=== PATIENT | male | born 1960 | race Caucasian/White ===

== ENCOUNTER 2021-04-15 22:59 | Observation (INO) | payer OTHER ==
--- NOTE | 2021-04-15 23:09 | ED ---
Chest Pain HPI - General Chief Complaint: Chest Pain Stated Complaint: Chest pain Time Seen by Provider: 04/15/21 23:08 Source: patient Mode of arrival: wheelchair Limitations: no limitations - History of Present Illness Initial Comments: This patient is a 61-year-old man who presents to be evaluated for pain to the posterior aspect of the thorax. He indicates just inferior to the left scapula. Pain is been presents intermittently to 3 days. Today he was having some aching into the left arm the upper portion. The pain had come on at rest. He did have a period earlier today where he felt sweaty, but he denies any other associated symptoms. Patient denies history of exertional chest pains. MD Complaint: chest pain -: days(s) Onset: during rest Pain Location: other ((Back) Pain Radiation: LUE Severity: moderate Quality: aching Consistency: constant Improves With: nothing Worsens With: nothing Treatments Prior to Arrival: none - Related Data Allergies Allergy/AdvReac Type Severity Reaction Status Date / Time amoxicillin Allergy Nausea Verified 04/15/21 23:06 azithromycin [From Zithromax] Allergy Nausea Verified 04/15/21 23:06 codeine Allergy Nausea Verified 04/15/21 23:06 Penicillins Allergy Nausea Verified 04/15/21 23:06 Review of Systems ROS Statement: Those systems with pertinent positive or pertinent negative responses have been documented in the HPI. ROS Other: All systems not noted in ROS Statement are negative. Constitutional: Denies: fever, chills Respiratory: Denies: cough, dyspnea, wheezes Cardiovascular: Reports: as per HPI, chest pain. Denies: palpitations, dyspnea on exertion, orthopnea, edema, syncope Gastrointestinal: Denies: abdominal pain, nausea, vomiting, diarrhea Genitourinary: Denies: dysuria, hematuria Musculoskeletal: Denies: back pain Skin: Denies: rash Neurological: Denies: headache, weakness, numbness, paresthesias EKG Findings - EKG Results: EKG: interpreted by SHAWN, sinus rhythm (With PVCs), normal axis, normal QRS, normal ST/T EKG shows: tachycardia (Rate 106 bpm) Past Medical History Additional Past Medical History / Comment(s): COVID 02/21 History of Any Multi-Drug Resistant Organisms: None Reported Past Surgical History: No Surgical Hx Reported Past Psychological History: No Psychological Hx Reported Smoking Status: Former smoker Past Alcohol Use History: Rare Past Drug Use History: None Reported General Exam Limitations: no limitations General appearance: alert, in no apparent distress Head exam: Present: atraumatic, normocephalic Eye exam: Present: normal appearance. Absent: scleral icterus, conjunctival injection Neck exam: Present: normal inspection Respiratory exam: Present: normal lung sounds bilaterally. Absent: respiratory distress, wheezes, rales, rhonchi, stridor Cardiovascular Exam: Present: regular rate, normal rhythm, normal heart sounds. Absent: systolic murmur, diastolic murmur, rubs, gallop GI/Abdominal exam: Present: soft. Absent: distended, tenderness, guarding, rebound, rigid, mass Extremities exam: Present: normal inspection, normal capillary refill. Absent: pedal edema, calf tenderness Back exam: Present: normal inspection. Absent: CVA tenderness (R), CVA tenderness (L) Neurological exam: Present: alert Skin exam: Present: warm, dry, intact, normal color. Absent: rash Course Vital Signs 04/15/21 04/16/21 04/16/21 23:03 00:05 01:06 Temperature 98.8 F Pulse Rate 81 105 H 99 Respiratory 18 16 18 Rate Blood Pressure 181/83 153/91 126/85 O2 Sat by Pulse 96 97 98 Oximetry 04/16/21 02:04 Temperature Pulse Rate 92 Respiratory 21 Rate Blood Pressure 148/96 O2 Sat by Pulse 96 Oximetry Disposition Clinical Impression: Chest pain Disposition: ADMITTED IP TO THIS HOSP Condition: Fair Is patient prescribed a controlled substance at d/c from ED?: No
[2021-04-15] MEDS ORDERED: NITROGLYCERIN SL TABS 0.4 MG TAB SUBLINGUAL STA (23:30)
[2021-04-15] MEDS ORDERED: ASPIRIN 81 MG PO STA (23:30)
[2021-04-15 23:39] LABS: Basophils # (A) 0.1 k/uL (0-0.2); Basophils % (A) 1 %; Eosinophils # (A) 0.3 k/uL (0-0.7); Eosinophils % (A) 4 %; HCT 41.9 % (39.0-53.0); HGB 14.5 gm/dL (13.0-17.5); Lymphocytes # (A) 2.4 k/uL (1.0-4.8); Lymphocytes % (A) 37 %; MCH 32.1 pg (25.0-35.0); MCHC 34.7 g/dL (31.0-37.0); MCV 92.6 fL (80.0-100.0); Mean Platelet Volume 8.4; Monocytes # (A) 0.8 k/uL (0-1.0); Monocytes % (A) 12 %; Neutrophils # (A) 2.8 k/uL (1.3-7.7); Neutrophils % (A) 43 %; Platelet Count 227 k/uL (150-450); RBC 4.52 m/uL (4.30-5.90); RDW 12.6 % (11.5-15.5); WBC 6.6 k/uL (3.8-10.6)
[2021-04-15 23:46] LABS: ALT 41 U/L (4-49); AST 30 U/L (17-59); African American GFR (CKD) >90 (>60 ml/min/1.73 sqM); Albumin 4.2 g/dL (3.5-5.0); Alkaline Phosphatase 76 U/L (38-126); Anion Gap 9 mmol/L; Blood Urea Nitrogen 23 mg/dL (9-20); Calcium 9.1 mg/dL (8.4-10.2); Carbon Dioxide 26 mmol/L (22-30); Chloride 105 mmol/L (98-107); Glucose 121 mg/dL (74-99); Magnesium 2.2 mg/dL (1.6-2.3); Non-African American GFR(CKD) 78 (>60 ml/min/1.73 sqM); Potassium 4.3 mmol/L (3.5-5.1); Sodium 140 mmol/L (137-145); Total Bilirubin 0.4 mg/dL (0.2-1.3); Total Protein 7.2 g/dL (6.3-8.2)
[2021-04-15 23:57] LABS: INR 0.9 (<1.2); Partial Thromboplastin Time 23.3 sec (22.0-30.0); Prothrombin Time 9.5 sec (9.0-12.0)
--- NOTE | 2021-04-16 00:01 | XR ---
EXAMINATION TYPE: XR chest 2V DATE OF EXAM: 04/15/2021 COMPARISON: NONE HISTORY: Chest pain TECHNIQUE: FINDINGS: Heart and mediastinum are normal. Lungs are clear. Diaphragm is normal. Bony thorax appears normal. There are chest leads. IMPRESSION: Normal chest.
[2021-04-16] MEDS ORDERED: MORPHINE SULFATE 4 MG/ML SYRINGE IV PRN (01:02)
[2021-04-16] MEDS ORDERED: NITROGLYCERIN SL TABS 0.4 MG TAB SUBLINGUAL PRN ×2 (01:02→09:11)
[2021-04-16] MEDS ORDERED: LORazepam 2 MG/ML INJ IV PRN (01:04)
[2021-04-16] MEDS ORDERED: SODIUM CHLORIDE 0.9% 1,000 ML IV SCH (01:15)
[2021-04-16] MEDS ORDERED: NAPROXEN 250 MG TAB PO STA (02:09)
--- NOTE | 2021-04-16 03:15 | P.HPIM ---
History of Present Illness H&P Date: 04/16/21 The patient is a 61-year-old male with no known PMH who presents to the emergency room with complaints of left upper chest and left arm pain. The patient reports that he contracted COVID-19 3 months ago and feels that he never fully recovered from it. He reports exertional dyspnea and decreased exercise tolerance. He further reports that over the past 3-4 days, he has had a left upper chest pressure-like discomfort with radiation of the left arm. The pain is 3 out of 10 on maximal intensity, somewhat exertional, nonpleuritic, partially alleviated with rest. He denied associated nausea, diaphoresis, vomiting, dizziness, palpitations. In the emergency room an EKG revealed sinus tachycardia with PVCs at 106 bpm. Chest x-ray was unremarkable. Laboratory evaluation revealed a BUN of 23, creatinine 1.05, and troponin of 0.014. Review of systems: Pertinent positives and negatives as discussed in HPI, a complete review of systems was performed and all other systems are negative. Physical examination: General: non toxic, no distress, appears at stated age, normal weight Derm: no unusual rashes/lesions no unusual ecchymoses, warm, dry Head: atraumatic, normocephalic, symmetric Eyes: EOMI, no lid lag, anicteric sclera, pupils equal round reactive to light ENT: Nose and ears atraumatic, no thrush, no pharyngeal erythema Neck: No thyromegaly, no cervical lymphadenopathy, trachea midline, supple Mouth: no lip lesion, mucus membranes moist Cardiovascular: S1S2 reg, no murmur, positive posterior tibial pulse bilateral, no edema, capillary refill less than 2 seconds, no chest wall tenderness on palpation Lungs: CTA bilateral, no rhonchi, no rales , no accessory muscle use Abdominal: soft, nontender to palpation, no guarding, no appreciable organomegaly, normal bowel sounds Ext: no gross muscle atrophy, muscle strength 5 out of 5 in all 4 extremities grossly, no contractures, Neuro: CN II-XI grossly intact, light touch intact all 4 extremities, finger to nose within normal limits, Psych: Alert, oriented, appropriate affect Assessment/plan Chest pain with atypical features -Trend troponin -Cardiac monitoring -Cardiology consult -Continue with aspirin -Echocardiogram -Obtain lipid panel Prerenal azotemia -IV fluids DVT prophylaxis -Heparin subcu The patient is admitted with an anticipated less than 2 midnight stay for evaluation of chest pain CODE STATUS: Full Code Discussed with: Patient Anticipated discharge date: in am Anticipated discharge place: Home Past Medical History Additional Past Medical History / Comment(s): COVID 02/21 History of Any Multi-Drug Resistant Organisms: None Reported Past Surgical History: No Surgical Hx Reported Past Psychological History: No Psychological Hx Reported Smoking Status: Former smoker Past Alcohol Use History: Rare Past Drug Use History: None Reported - Past Family History Father Family Medical History: COPD Medications and Allergies Allergies Allergy/AdvReac Type Severity Reaction Status Date / Time amoxicillin Allergy Nausea Verified 04/15/21 23:06 azithromycin [From Zithromax] Allergy Nausea Verified 04/15/21 23:06 codeine Allergy Nausea Verified 04/15/21 23:06 Penicillins Allergy Nausea Verified 04/15/21 23:06 Physical Exam Vitals: Vital Signs Temp Pulse Resp BP Pulse Ox 04/16/21 02:04 92 21 148/96 96 04/16/21 01:06 99 18 126/85 98 04/16/21 00:05 105 H 16 153/91 97 04/15/21 23:03 98.8 F 81 18 181/83 96 Intake and Output 04/15/21 04/15/21 04/16/21 14:59 22:59 06:59 Other: Weight 86.183 kg Results CBC & Chem 7: 04/15/21 23:26 04/15/21 23:26 Labs: Abnormal Lab Results - Last 24 Hours (Table) 04/15/21 Range/Units 23:26 BUN 23 H (9-20) mg/dL Glucose 121 H (74-99) mg/dL
[2021-04-16] MEDS: HEPARIN SODIUM,PORCINE/PF 5,000 UNIT/0.5 ML SYRINGE SQ SCH ×2 (07:52→15:27)
[2021-04-16] MEDS: METOPROLOL TARTRATE 25 MG TAB PO SCH ×2 (07:52→19:41)
[2021-04-16] MEDS ORDERED: ASPIRIN 325 MG TAB PO STA (09:11)
[2021-04-16] MEDS ORDERED: ALPRAZolam 0.25 MG TAB PO PRN (09:11)
[2021-04-16] MEDS ORDERED: ATORVASTATIN 80 MG TAB PO STA (09:11)
[2021-04-16] MEDS ORDERED: ALPRAZolam 0.5 MG TAB PO PRN (09:11)
[2021-04-16] MEDS: SODIUM CHLORIDE 0.9% 1,000 ML in EMPTY BAG 1 BAG IV SCH ×2 (09:24→19:37)
[2021-04-16] MEDS ORDERED: LIDOCAINE 1% INJ 10MG/ML (20 ML MDV) ONE (10:33)
[2021-04-16] MEDS ORDERED: VERAPAMIL 2.5 MG/ML 2 ML AMP ONE (10:33)
[2021-04-16] MEDS ORDERED: HEPARIN SODIUM 1,000 UN/ML (10ML VL) ONE (10:33)
[2021-04-16] MEDS: fentaNYL (PF) 50 MCG/ML 5 ML AMP IV ONE ×2 (10:41→10:54)
[2021-04-16] MEDS ORDERED: IV FLUID CONTINUATION 1,000 ML IV ONE (10:41)
[2021-04-16] MEDS ORDERED: MIDAZOLAM 2 MG/2 ML VIAL IV ONE (10:41)
[2021-04-16] MEDS: LIDOCAINE 1% INJ 10MG/ML (20 ML MDV) SQ ONE ×2 (10:44→10:55)
[2021-04-16] MEDS ORDERED: IOPAMIDOL-370 125ML BTL INJ ONE (11:06)
[2021-04-16 11:14] LABS: African American GFR (CKD) 109.2 (60.0-200.0); Anion Gap 12.4 mmol/L (10.00-18.00); BUN/Creat Ratio 22.74 Ratio (12.00-20.00); Blood Urea Nitrogen 19.9 mg/dL (9.0-27.0); Calcium 8.6 mg/dL (8.7-10.3); Carbon Dioxide 22.3 mmol/L (20.0-27.5); Non-African American GFR(CKD) 94.2 (60.0-200.0); Potassium 4.1 mmol/L (3.5-5.5)
--- NOTE | 2021-04-16 11:39 | ECHOF ---
Referral Reason:chest pain MEASUREMENTS -------- HEIGHT: 165.1 cm WEIGHT: 86.2 kg BP: 148/96 IVSd: 1.2 cm (0.6 - 1.1) LVIDd: 5.5 cm (3.9 - 5.3) LVPWd: 1.3 cm (0.6 - 1.1) IVSs: 1.4 cm LVIDs: 4.7 cm LVPWs: 1.7 cm Ao Diam: 3.6 cm (2.0 - 3.7) AV Cusp: 2.3 cm (1.5 - 2.6) MV EXCURSION: 20.757 mm (> 18.000) MV EF SLOPE: 133 mm/s (70 - 150) EPSS: 3.0 cm MV E Dorian: 0.58 m/s MV DecT: 200 ms MV A Dorian: 0.62 m/s MV E/A Ratio: 0.95 RAP: 5.00 mmHg RVSP: 17.06 mmHg FINDINGS -------- Sinus rhythm. This was a technically difficult study with suboptimal apical views. The left ventricular size is normal. There is mild concentric left ventricular hypertrophy. There is moderate global hypokinesis of LV . Overall left ventricular systolic function is moderate-blanka rely impaired with, an EF between 30 - 35 %. The right ventricle is normal in size. The left atrial size is normal. The right atrium was not well visualized. 3.0mg of Lumason was utilized for enhancement of images Interatrial and interventricular septum intact. The aortic valve is trileaflet and appears structurally normal. There is no evidence of aortic regu rgitation. There is no evidence of aortic stenosis. Mild mitral regurgitation is present. Mild tricuspid regurgitation present. There is no evidence of pulmonary hypertension. The right v entricular systolic pressure, as measured by Doppler, is 17.06mmHg. There is no pulmonic regurgitation present. The aortic root size is normal. IVC Not well visulized. There is no pericardial effusion. CONCLUSIONS -------- 1. The left ventricular size is normal. 2. There is mild concentric left ventricular hypertrophy. 3. There is moderate global hypokinesis of LV . 4. Overall left ventricular systolic function is moderate-severely impaired with, an EF between 30 - 35 %. 5. Mild mitral regurgitation is present. 6. Mild tricuspid regurgitation present. CONCRETE FLOATER: Stacey Cardenas RDCS
[2021-04-16] MEDS ORDERED: RX INFO: IV CONTRAST WAS GIVEN 1 EACH MISC MISCELLANE PRN (13:07)
[2021-04-16] MEDS: SODIUM CHLORIDE 0.9% 1,000 ML IV SCH (13:50)
--- NOTE | 2021-04-16 15:07 | CONS ---
CONSULTATION CHIEF COMPLAINT: Chest pain. HISTORY OF PRESENT ILLNESS: Henrry is a 61-year-old gentleman with history of anxiety disorder, who presented to the hospital complaining of discomfort involving left shoulder that radiates all the way to his left arm. Symptoms have been going on for the last 4 days. It is moderate to severe intensity, gets worse with activity and relieved with rest. He also has vague precordial chest discomfort. He denies shortness of breath, leg edema, PND or orthopnea. There is no history of focal neurological deficits. There is no prior history of coronary artery disease or congestive heart failure. The patient used to smoke cigarettes, but quit 25 years ago. There is no history of hypertension, diabetes, dyslipidemia. Since being admitted, his symptoms have improved somewhat but he still has vague chest tightness. EKG does not reveal ischemic changes. Two sets of cardiac enzymes have been negative. PAST MEDICAL HISTORY: Significant for anxiety disorder. MEDICATIONS: Medications at home include albuterol, trazodone, Risperdal, and Celexa. ALLERGIES: TO CODEINE, AMOXICILLIN, ZITHROMAX AND PENICILLIN. FAMILY HISTORY: Significant for coronary artery disease on his mother's side. SOCIAL HISTORY: Negative for smoking, EtOH abuse or drug abuse. REVIEW OF SYSTEMS: HEENT is unremarkable. CARDIAC as described above. RESPIRATORY: Negative. GI negative. GENITOURINARY negative. ALLERGY/IMMUNOLOGY negative. SKIN negative. MUSCULOSKELETAL: Significant for arthritis. PSYCHOSOCIAL negative. ENDOCRINE negative. DERM: Negative. CONSTITUTIONAL: Negative. ONCOLOGICAL negative. TUBE DISPATCHER: Negative. Rest of the system review is not relevant. EXAM: He is comfortable at rest. Vital signs are stable. NECK: There is no jugular venous distention. Carotid upstroke is normal. There is no bruit. CHEST exam reveals good air entry bilaterally. HEART exam reveals first and second heart sounds. No gallop. No murmur. No rub. ABDOMEN is soft, nontender. Examination of EXTREMITIES did not reveal any edema. Peripheral pulses are felt. LABS: Labs show that the 3 sets of troponins are negative. Coronavirus test is negative. Creatinine is normal at 1. Hemoglobin is 14.5, platelet count is 227. EKG does not reveal acute ischemic changes. Rare PVCs noted. Chest x-ray is negative. ASSESSMENT: Precordial chest pain, rule out coronary artery disease. PLAN: I will obtain a 2D echo. If he has LV dysfunction or wall motion abnormality, I will proceed with cardiac catheterization to evaluate his coronary anatomy. If the echo is entirely normal, we will consider a stress echo on him and decide on further course of action. The patient is currently on aspirin. He is on IV heparin which is going to be stopped. He is on Zestril, which I am going to continue and Lopressor, which I am going to continue. MMJULIANNA / IJN: [id number] /
[2021-04-16] MEDS ORDERED: ACETAMINOPHEN TAB 325 MG TAB PO PRN (15:38)
[2021-04-16] MEDS ORDERED: ALBUTEROL HFA INHALER INHALATION PRN (15:43)
--- NOTE | 2021-04-16 15:46 | CC ---
CARDIAC CATHETERIZATION REPORT INDICATION: Cardiomyopathy. This is a 61-year-old gentleman who presented to hospital with symptoms of precordial chest pain, primarily left shoulder and arm pain. An EKG did not reveal ischemic changes, but he had PVCs. Cardiac enzymes were negative. An echocardiogram showed severe LV systolic dysfunction with diffuse global hypokinesis. Patient had COVID infection recently but was not admitted, and recovered at home. Given the unexplained new-onset cardiomyopathy, I advised the patient to undergo cardiac catheterization for further evaluation. He has been explained risks, benefits and alternatives, understood and accepted. PROCEDURE NOTE: After obtaining informed consent, left heart catheterization and coronary angiogram were performed via the right femoral artery using standard Ebony catheters. Left ventricular pressures were obtained using the right Ebony catheter. We initially attempted vascular access from the right radial artery using Seldinger technique; however, while we were able to place the micropuncture needle into the radial artery, we were not able to advance the Glidewire. Hence, after several attempts, I decided to proceed with a femoral catheter, which concluded uneventfully. Patient received moderate conscious sedation. Total sedation time was 27 minutes. Manual hemostasis will be obtained as the femoral angiogram shows that the site of entry is very close to the bifurcation. FINDINGS: HEMODYNAMICS: Left ventricular end-diastolic pressure is 24 mm. There is no significant gradient across the aortic valve. LEFT VENTRICULOGRAM: Left ventriculogram was not performed. ANGIOGRAPHIC DATA: Left main coronary artery. Left main coronary artery is a normal-sized vessel and is free of stenosis. It divides into left anterior descending coronary artery and circumflex coronary artery. Circumflex is a large dominant vessel and is free of significant disease. LAD and its branches are free of significant disease. Right coronary artery is a small nondominant vessel and is free of significant disease. CONCLUSIONS: 1. Normal coronary arteries. 2. Nonischemic cardiomyopathy. PLAN: Will treat the patient with beta blockers, KEVIN inhibitors, and if necessary diuretics and reassess the LV function in to 6 months' time. If he continues to have LV systolic dysfunction, he will need a prophylactic AICD. I reviewed these issues at length with the patient. He understands and with the plan. MMODL / IJN: [id number] /
[2021-04-16] MEDS ORDERED: HYDROcodone/APAP 5-325MG 1 EACH TAB PO STA (19:59)
[2021-04-16] MEDS ORDERED: risperiDONE 2 MG TAB PO SCH (21:00)
[2021-04-16] MEDS ORDERED: traZODone HCL 100 MG TAB PO SCH (21:00)
[2021-04-16] MEDS ORDERED: CITALOPRAM HYDROBROMIDE 20 MG TAB PO SCH (21:00)
[2021-04-17] MEDS: HEPARIN SODIUM,PORCINE/PF 5,000 UNIT/0.5 ML SYRINGE SQ SCH ×2 (00:38→08:59)
[2021-04-17] MEDS: SODIUM CHLORIDE 0.9% 1,000 ML IV SCH (01:51)
[2021-04-17] MEDS ORDERED: HEPARIN SODIUM,PORCINE 2,500 UNIT in SODIUM CHLORIDE 0.9% 250 ML IRRIGATION PRN (07:00)
[2021-04-17] MEDS ORDERED: HEPARIN SODIUM,PORCINE 10,000 UNIT in SODIUM CHLORIDE 0.9% 1,000 ML IRRIGATION PRN (07:00)
[2021-04-17 07:32] VITALS: BP 136/87; PULSE 76; RESP 16; TEMP 97.7
[2021-04-17] MEDS ORDERED: ASPIRIN 325 MG TAB PO SCH (09:00)
[2021-04-17] MEDS ORDERED: ASPIRIN 81 MG PO SCH (09:00)
[2021-04-17] MEDS: METOPROLOL TARTRATE 25 MG TAB PO SCH (09:00)
[2021-04-17] MEDS ORDERED: lisinopriL 5 MG TAB PO SCH (09:00)
[2021-04-17] MEDS: SODIUM CHLORIDE 0.9% 1,000 ML in EMPTY BAG 1 BAG IV SCH (09:05)
--- NOTE | 2021-04-17 09:53 | P.PN ---
Subjective Progress Note Date: 04/17/21 HISTORY OF PRESENT ILLNESS: This is a 61-year-old male who presented to the hospital with a chief complaint of chest pain. Echo cardiac gram completed yesterday revealed global hypok inesis of LV with ejection fraction of 3035%. He underwent cardiac catheterization yesterday revealing normal coronary arteries. Patient examined this morning at the bedside. He denies chest pain or pressure. Denies shortness of breath. He continues to report some pain in his arm but states it is improved from yesterday. Patient's vital signs are stable. PHYSICAL EXAM: VITAL SIGNS: Reviewed. GENERAL: Well-developed in no acute distress. NECK: Supple. No JVD or thyromegaly LUNGS: Respirations even and unlabored. Lungs essentially clear to auscultation bilaterally. HEART: Regular rate and rhythm. S1 and S2 heard. EXTREMITIES: Normal range of motion. No clubbing or cyanosis. Peripheral pulses intact. No lower extremity edema. Groin soft with no hematoma noted. ASSESSMENT: Chest pain, status post cardiac catheterization revealing normal coronary arteries Nonischemic cardiomyopathy History of drug use PLAN: Continue current cardiac medications Patient may be discharged home this afternoon in follow-up outpatient with Dr. Clark. He will require a repeat echocardiogram in the future to see if his LV function has improved Nurse practitioner note has been reviewed by physician. Signing provider agrees with the documented findings, assessment, and plan of care. Objective - Vital Signs Vital signs: Vital Signs Temp 97.7 F 04/17/21 07:32 Pulse 76 04/17/21 07:32 Resp 16 04/17/21 07:32 BP 136/87 04/17/21 07:32 Pulse Ox 97 04/17/21 07:32 Intake & Output 04/16/21 04/17/21 04/17/21 18:59 06:59 18:59 Intake Total 460 40 Balance 460 40 Weight 86.183 kg Intake: IV 200 Intake, IV Titration 0 Amount Sodium Chloride 0.9% 1, 0 000 ml @ 100 mls/hr IV . Q10H KADEN Rx#:[id number] Oral 260 40 Other: # Voids 1 2 - Labs CBC & Chem 7: 04/15/21 23:26 04/16/21 05:33 Labs: Abnormal Lab Results - Last 24 Hours (Table) 04/16/21 Range/Units 05:33 BUN/Creatinine Ratio 22.74 H (12.00-20.00) Ratio Calcium 8.6 L (8.7-10.3) mg/dL
[2021-04-17 10:43] LABS: Chol/HDL Ratio 4.02 Ratio; LDL Cholesterol,Calculated 91.7 mg/dL (0.0-131.0)
--- NOTE | 2021-04-17 12:29 | P.DS ---
Providers Date of admission: 04/16/21 01:02 Expected date of discharge: 04/17/21 Attending physician: Esperanza Rodriguez MD Consults: 04/16/21 01:02 Consult Physician Routine Consulting Provider: Jose Luis Del Real Consult Reason/Comments: chest pain Do you want consulting provider notified?: Yes Primary care physician: Gt Lamas MD Hospital Course: 61-year-old male admitted to the hospital with chest pain coated cath was done no evidence of acute coronary syndrome or any lesions that needs stenting patient was found to have nonischemic cardiomyopathy was cleared from cardiology to go home currently patient doesn't have any chest pain no shortness of breath Constitutional: No acute distress, conversant, pleasant Eyes: Anicteric sclerae, moist conjunctiva, no lid-lag PERRLA ENMT: NC/AT Oropharynx clear, no erythema, exudates Neck: Supple, FROM, no masses, or JVD No carotid bruits No thyromegaly Lungs: Clear to auscultation Clear to percussion Normal respiratory effort, no accessory muscle use Cardiovascular: Heart regular in rate and rhythm, No murmurs, gallops, or rubs No peripheral edema Abdominal: Soft Nontender, no guarding, rebound or rigidity Abdomen moving with respiration Normoactive bowel sounds No hepatomegaly, No splenomegaly No palpable mass No abdominal wall hernia noted Skin: Normal temperature, tone, texture, turgor No induration No subcutaneous nodules No rash, lesions No ulcers Extremities: No digital cyanosis No clubbing Pedal pulses intact and symmetrical Radial pulses intact and symmetrical Normal gait and station No calf tenderness Psychiatric:Alert and oriented to person, place and time Appropriate affect Intact judgement Neuro: Muscles Strength 5/5 in all 4 extremities Sensation to light touch grossly present throughout Cranial nerves II-XII grossly intact No focal sensory deficits Discharge plan Chest pain status post cardiac cath no evidence of ischemic coronary artery disease Nonischemic cardiomyopathy continue beta blockers lisinopril and follow-up with cardiology as an outpatient Patient Condition at Discharge: Good Plan - Discharge Summary Discharge Rx Participant: No New Discharge Prescriptions: New Aspirin 81 mg PO DAILY 30 Days #30 tab Metoprolol Tartrate [Lopressor] 25 mg PO BID 30 Days #60 tab lisinopriL [Zestril] 5 mg PO DAILY 30 Days #30 tab Continue Albuterol Inhaler [Ventolin Hfa Inhaler] 2 puff INHALATION RT-QID PRN PRN Reason: Shortness Of Breath traZODone HCL 100 mg PO HS risperiDONE [RisperDAL] 2 mg PO HS Citalopram Hydrobromide [CeleXA] 20 mg PO HS Discharge Medication List Albuterol Inhaler [Ventolin Hfa Inhaler] 2 puff INHALATION RT-QID PRN 04/16/21 [History] Citalopram Hydrobromide [CeleXA] 20 mg PO HS 04/16/21 [History] risperiDONE [RisperDAL] 2 mg PO HS 04/16/21 [History] traZODone HCL 100 mg PO HS 04/16/21 [History] Aspirin 81 mg PO DAILY 30 Days #30 tab 04/17/21 [Rx] Metoprolol Tartrate [Lopressor] 25 mg PO BID 30 Days #60 tab 04/17/21 [Rx] lisinopriL [Zestril] 5 mg PO DAILY 30 Days #30 tab 04/17/21 [Rx] Follow up Appointment(s)/Referral(s): Gt Lamas MD [Primary Care Provider] - 1-2 days William Clark MD [STAFF PHYSICIAN] - 1 Week Patient Instructions/Handouts: Chest Pain (ED)
== END 2021-04-17 13:41 ==
LOC: EC 22:59 → 6NMEDSUR 04-16 01:02
PROVIDERS: ADMIT Internal Medicine; ATTEND Internal Medicine
DX: R07.2 Precordial pain (principal); M79.602 Pain in left arm; M25.512 Pain in left shoulder; R06.09 Other forms of dyspnea; R00.0 Tachycardia, unspecified; I49.3 Ventricular premature depolarization; I42.8 Other cardiomyopathies; I08.1 Rheumatic disorders of both mitral and tricuspid valves; F41.9 Anxiety disorder, unspecified; M19.90 Unspecified osteoarthritis, unspecified site; Z20.822 Contact with and (suspected) exposure to COVID-19; Z86.16 Personal history of COVID-19; Z87.891 Personal history of nicotine dependence; Z88.0 Allergy status to penicillin; Z88.5 Allergy status to narcotic agent; Z88.1 Allergy status to other antibiotic agents; Z82.5 Family history of asthma and other chronic lower respiratory diseases; Z82.49 Family history of ischemic heart disease and other diseases of the circulatory system; Z71.9 Counseling, unspecified
CPT/HCPCS: 96361; 96372; 96374; 96375; 99285; 36415; 93005; 93306; 93458; 85379; 80061; 80053; 80048; 83735; 84484 ×2; 85025; 85610; 85730; 87635; 71046; G0378 ×2; C1769 ×2; C1894 ×2; J2250; J2060; J2270; J2001; J3010; Q9950; Q9967; J1644 ×2

== ENCOUNTER 2021-05-17 02:10 | Emergency (ER) | payer OTHER ==
[2021-05-17 02:16] VITALS: BP 144/102; PULSE 83; RESP 22; TEMP 97.8
[2021-05-17] MEDS ORDERED: ASPIRIN 81 MG PO STA (02:34)
--- NOTE | 2021-05-17 02:43 | ED ---
Chest Pain HPI - General Chief Complaint: Chest Pain Stated Complaint: Chest pain Time Seen by Provider: 05/17/21 02:34 Source: patient, family Mode of arrival: wheelchair - History of Present Illness MD Complaint: chest pain Onset/Timin -: hour(s) Onset: during rest Pain Location: substernal Pain Radiation: neck Severity: moderate Quality: aching Consistency: constant Improves With: nothing Worsens With: nothing Treatments Prior to Arrival: none - Related Data Home Medications Medication Instructions Recorded Confirmed Albuterol Inhaler [Ventolin Hfa 2 puff INHALATION RT-QID PRN 04/16/21 04/16/21 Inhaler] Citalopram Hydrobromide [CeleXA] 20 mg PO HS 04/16/21 04/16/21 risperiDONE [RisperDAL] 2 mg PO HS 04/16/21 04/16/21 traZODone HCL 100 mg PO HS 04/16/21 04/16/21 Previous Rx's Medication Instructions Recorded Aspirin 81 mg PO DAILY 30 Days #30 tab 04/17/21 Metoprolol Tartrate [Lopressor] 25 mg PO BID 30 Days #60 tab 04/17/21 lisinopriL [Zestril] 5 mg PO DAILY 30 Days #30 tab 04/17/21 Allergies Allergy/AdvReac Type Severity Reaction Status Date / Time codeine Allergy Rash/Hives Verified 05/17/21 02:16 amoxicillin AdvReac Nausea Verified 05/17/21 02:16 azithromycin [From Zithromax] AdvReac Nausea Verified 05/17/21 02:16 Penicillins AdvReac Nausea Verified 05/17/21 02:16 Review of Systems ROS Statement: Those systems with pertinent positive or pertinent negative responses have been documented in the HPI. ROS Other: All systems not noted in ROS Statement are negative. Constitutional: Denies: fever, chills Respiratory: Denies: cough, dyspnea Cardiovascular: Reports: chest pain. Denies: palpitations, orthopnea, edema, syncope Gastrointestinal: Denies: abdominal pain, nausea, vomiting Genitourinary: Denies: dysuria, hematuria Musculoskeletal: Denies: back pain Skin: Denies: rash Neurological: Denies: headache, weakness, numbness EKG Findings - EKG Results: EKG: interpreted by SHAWN, sinus rhythm (Rate 77 bpm), normal axis, normal QRS - Blocks, [place], Hypertrophy, ST Abn: Repolarization changes or abnormalities: nonspecific abnormality, ST segment, and/or T wave Past Medical History Past Medical History: Asthma, COPD, Eye Disorder, GERD/Reflux, Pneumonia Additional Past Medical History / Comment(s): COVID 02/21, chronic stomach pain, IBS, fluid too thin bilateral eyes/poor vision, pneumonias. History of Any Multi-Drug Resistant Organisms: None Reported Past Surgical History: Orthopedic Surgery Additional Past Surgical History / Comment(s): L leg injury with surgery/hardware. Past Anesthesia/Blood Transfusion Reactions: No Reported Reaction Past Psychological History: Anxiety, Depression Smoking Status: Former smoker Past Alcohol Use History: None Reported Past Drug Use History: None Reported - Past Family History Father Family Medical History: Cancer Additional Family Medical History / Comment(s): Father of bone cancer Mother Family Medical History: CVA/TIA Additional Family Medical History / Comment(s): Mother is 78yrs old and has had several strokes. General Exam General appearance: alert Head exam: Present: atraumatic, normocephalic Eye exam: Present: normal appearance Neck exam: Present: normal inspection, full ROM Respiratory exam: Present: normal lung sounds bilaterally. Absent: respiratory distress, wheezes, rales, rhonchi, stridor, chest wall tenderness Cardiovascular Exam: Present: regular rate, normal rhythm, normal heart sounds. Absent: systolic murmur, diastolic murmur, rubs, gallop GI/Abdominal exam: Present: soft. Absent: distended, tenderness, guarding, rebound, rigid, mass Extremities exam: Present: normal inspection, normal capillary refill. Absent: pedal edema, calf tenderness Back exam: Present: normal inspection. Absent: CVA tenderness (R), CVA tenderness (L) Neurological exam: Present: alert Skin exam: Present: warm, dry, intact, normal color. Absent: rash Course Vital Signs 05/17/21 02:12 Temperature 97.8 F Pulse Rate 83 Respiratory 22 Rate Blood Pressure 144/102 O2 Sat by Pulse 99 Oximetry Disposition Clinical Impression: Chest pain Disposition: HOME SELF-CARE Condition: Good Instructions (If sedation given, give patient instructions): Chest Pain (ED) Is patient prescribed a controlled substance at d/c from ED?: No Referrals: Gt Lamas MD [Primary Care Provider] - 1-2 days
[2021-05-17 02:45] LABS: Basophils % (A) 1 %; Eosinophils # (A) 0.1 k/uL (0-0.7); Eosinophils % (A) 3 %; HCT 40.9 % (39.0-53.0); HGB 13.6 gm/dL (13.0-17.5); Lymphocytes # (A) 1.5 k/uL (1.0-4.8); Lymphocytes % (A) 32 %; MCH 31.3 pg (25.0-35.0); MCHC 33.4 g/dL (31.0-37.0); MCV 93.7 fL (80.0-100.0); Mean Platelet Volume 7.2; Monocytes # (A) 0.4 k/uL (0-1.0); Monocytes % (A) 9 %; Neutrophils # (A) 2.4 k/uL (1.3-7.7); Neutrophils % (A) 52 %; Platelet Count 211 k/uL (150-450); RBC 4.36 m/uL (4.30-5.90); RDW 13.1 % (11.5-15.5); WBC 4.6 k/uL (3.8-10.6)
[2021-05-17 02:56] LABS: ALT 41 U/L (4-49); AST 33 U/L (17-59); African American GFR (CKD) >90 (>60 ml/min/1.73 sqM); Albumin 4.3 g/dL (3.5-5.0); Alkaline Phosphatase 58 U/L (38-126); Anion Gap 10 mmol/L; Blood Urea Nitrogen 14 mg/dL (9-20); Calcium 8.7 mg/dL (8.4-10.2); Carbon Dioxide 23 mmol/L (22-30); Chloride 106 mmol/L (98-107); Glucose 107 mg/dL (74-99); Magnesium 2.3 mg/dL (1.6-2.3); Non-African American GFR(CKD) >90 (>60 ml/min/1.73 sqM); Sodium 139 mmol/L (137-145); Total Bilirubin 0.5 mg/dL (0.2-1.3); Total Protein 7.5 g/dL (6.3-8.2)
[2021-05-17 03:02] LABS: INR 0.9 (<1.2); Partial Thromboplastin Time 22.6 sec (22.0-30.0)
--- NOTE | 2021-05-17 03:07 | XR ---
EXAMINATION TYPE: XR chest 2V DATE OF EXAM: 05/17/2021 COMPARISON: 04/15/2021 HISTORY: Chest pain TECHNIQUE: 2 views FINDINGS: Heart and mediastinum are normal. Lungs are clear. Diaphragm is normal. Bony thorax is inta ct. IMPRESSION: Normal chest. No change.
== END 2021-05-17 04:30 | disposition home or self-care (01) ==
LOC: EC 02:10
DX: R07.9 Chest pain, unspecified (principal); J45.909 Unspecified asthma, uncomplicated; Z87.891 Personal history of nicotine dependence; Z88.5 Allergy status to narcotic agent; Z88.0 Allergy status to penicillin; Z88.1 Allergy status to other antibiotic agents
CPT/HCPCS: 36415; 71046; 80053; 83735; 84484; 85025; 85379; 85610; 85730; 93005; 99285

== ENCOUNTER 2021-10-21 13:09 | Emergency (ER) | payer OTHER ==
[2021-10-21 13:22] VITALS: RESP 18; TEMP 98.1
[2021-10-21] MEDS ORDERED: LIDOCAINE 5% PATCH TOPICAL SCH (16:15)
--- NOTE | 2021-10-21 16:19 | ED ---
Back Pain HPI - General Chief Complaint: Back Pain/Injury Stated Complaint: Fall, Back Injury Time Seen by Provider: 10/21/21 16:05 Source: patient, RN notes reviewed, old records reviewed Limitations: no limitations - History of Present Illness Initial Comments: This is a pleasant 61-year-old male that presents to the emergency room with low back pain for one week. Patient states that he was standing on a swivel barstool last week and fell backwards hitting his low back on the circular metal foot bar. Patient was able to ambulate after and since the fall. He denies any bowel or bladder incontinence. No hematuria. He has had some abdominal pain states feels like he just did multiple sit-ups. No nausea vomiting diarrhea or fevers. He noticed over the past couple of days some swelling to his mid lower back which is tender to touch. He has been taking Aleve for the pain. Does have a history of a left tib-fib fracture, asthma, COPD and irritable bowel syndrome. MD Complaint: back pain, back injury, fall -: week(s) (1) Place: home Radiation: left leg Severity scale (1-10): 7 Quality: dull Consistency: constant Improves With: immobilization Worsens With: movement Context: fall (Standing on a barstool fell backward) Associated Symptoms: denies other symptoms Treatments Prior to Arrival: NSAIDS - Related Data Home Medications Medication Instructions Recorded Confirmed Albuterol Inhaler [Ventolin Hfa 2 puff INHALATION RT-QID PRN 04/16/21 04/16/21 Inhaler] Citalopram Hydrobromide [CeleXA] 20 mg PO HS 04/16/21 04/16/21 risperiDONE [RisperDAL] 2 mg PO HS 04/16/21 04/16/21 traZODone HCL 100 mg PO HS 04/16/21 04/16/21 Previous Rx's Medication Instructions Recorded Aspirin 81 mg PO DAILY 30 Days #30 tab 04/17/21 Metoprolol Tartrate [Lopressor] 25 mg PO BID 30 Days #60 tab 04/17/21 lisinopriL [Zestril] 5 mg PO DAILY 30 Days #30 tab 04/17/21 Lidocaine 5% Patch [Lidoderm] 1 patch TOPICAL DAILY 10 Days #10 10/21/21 patch Allergies Allergy/AdvReac Type Severity Reaction Status Date / Time codeine Allergy Rash/Hives Verified 05/17/21 02:16 amoxicillin AdvReac Nausea Verified 05/17/21 02:16 azithromycin [From Zithromax] AdvReac Nausea Verified 05/17/21 02:16 Penicillins AdvReac Nausea Verified 05/17/21 02:16 Review of Systems ROS Statement: Those systems with pertinent positive or pertinent negative responses have been documented in the HPI. ROS Other: All systems not noted in ROS Statement are negative. Past Medical History Past Medical History: Asthma, COPD, Eye Disorder, GERD/Reflux, Pneumonia Additional Past Medical History / Comment(s): COVID 02/21, chronic stomach pain, IBS, fluid too thin bilateral eyes/poor vision, pneumonias. History of Any Multi-Drug Resistant Organisms: None Reported Past Surgical History: Orthopedic Surgery Additional Past Surgical History / Comment(s): L leg injury with surgery/hardware. Past Anesthesia/Blood Transfusion Reactions: No Reported Reaction Past Psychological History: Anxiety, Depression Smoking Status: Former smoker Past Alcohol Use History: None Reported Past Drug Use History: None Reported - Past Family History Father Family Medical History: Cancer Additional Family Medical History / Comment(s): Father of bone cancer Mother Family Medical History: CVA/TIA Additional Family Medical History / Comment(s): Mother is 78yrs old and has had several strokes. General Exam Limitations: no limitations General appearance: alert, in no apparent distress Head exam: Present: atraumatic, normocephalic, normal inspection Eye exam: Absent: scleral icterus, conjunctival injection, periorbital swelling ENT exam: Present: mucous membranes moist Neck exam: Present: normal inspection. Absent: tenderness, meningismus Respiratory exam: Present: normal lung sounds bilaterally. Absent: respiratory distress, accessory muscle use Cardiovascular Exam: Present: regular rate GI/Abdominal exam: Present: soft. Absent: tenderness, rigid Extremities exam: Present: normal capillary refill. Absent: pedal edema Back exam: Present: tenderness (Lumbar sacral spine), paraspinal tenderness (LS- spine), other (Hematoma noted LS spine). Absent: CVA tenderness (R), CVA tenderness (L), rash noted Expanded Back exam: Absent: saddle anesthesia Back exam: Positive Straight Leg Raise: Left Neurological exam: Present: alert, oriented X3, normal gait Psychiatric exam: Present: normal affect, normal mood Skin exam: Present: warm, dry. Absent: cyanosis, diaphoretic, petechiae, pallor Course Vital Signs 10/21/21 10/21/21 13:21 16:58 Temperature 98.1 F Pulse Rate 92 82 Respiratory 18 18 Rate Blood Pressure 148/98 149/92 O2 Sat by Pulse 98 99 Oximetry Medical Decision Making - Medical Decision Making X-ray of the lumbar vertebrae have normal alignment. There is anterior mild spurring in the mid lower lumbar spine. No significant disc space narrowing and no compression fracture noted. On physical exam there is a 3 x 4 cm hematoma to the LS spine. Patient states that the initial bruising has resolved. This is likely a hematoma. Patient has been able to ambulate since the incident one week ago. He currently has a steady gait. No bowel or bladder incontinence no other red flag symptoms. Vital signs are stable. Patient was offered pain medication and declined. He was agreeable to Lidoderm patch. Patient was given a prescription for Lidoderm patches, directed to follow-up with his primary care doctor next week for reevaluation. Return to the emergency room with any new or concerning symptoms. Patient is agreeable with this plan of care Case discussed with Dr. Banks Disposition Clinical Impression: Lower back injury Disposition: HOME SELF-CARE Condition: Good Instructions (If sedation given, give patient instructions): Acute Low Back Pain (ED) Additional Instructions: Continued taking Tylenol and or Motrin as needed for pain. Use Lidoderm patches as prescribed for low back pain, 12 hours on and then 12 hours off. Return to the emergency room with any new or concerning symptoms including increased pain, inability to ambulate, bowel or bladder incontinence or fevers. Prescriptions: Lidocaine 5% Patch [Lidoderm] 1 patch TOPICAL DAILY 10 Days #10 patch Is patient prescribed a controlled substance at d/c from ED?: No Referrals: Gt Lamas MD [Primary Care Provider] - 1-2 days Time of Disposition: 16:52
--- NOTE | 2021-10-21 16:40 | XR ---
EXAMINATION TYPE: XR lumbosacral spine min 4V DATE OF EXAM: 10/21/2021 COMPARISON: NONE HISTORY: Back pain TECHNIQUE: 5 views FINDINGS: The lumbar vertebrae have normal alignment. Posterior elements are intact. There is anterio r mild spurring in the mid and lower lumbar spine. No significant disc space narrowing. No compressio n fracture. IMPRESSION: Negative lumbar spine exam. No fracture.
[2021-10-21 16:59] VITALS: BP 149/92; PULSE 82
== END 2021-10-21 17:02 | disposition home or self-care (01) ==
LOC: EC 13:09
DX: S39.92XA Unspecified injury of lower back, initial encounter (principal); J44.9 Chronic obstructive pulmonary disease, unspecified; K21.9 Gastro-esophageal reflux disease without esophagitis; Z79.83 Long term (current) use of bisphosphonates; Z87.891 Personal history of nicotine dependence; Z88.5 Allergy status to narcotic agent; Z88.1 Allergy status to other antibiotic agents; Z88.0 Allergy status to penicillin; W19.XXXA Unspecified fall, initial encounter
CPT/HCPCS: 72110

== ENCOUNTER 2024-05-05 06:43 | Emergency (ER) | payer OTHER ==
[2024-05-05 07:11] LABS: Glucose,Whole Blood 167 mg/dL (70-110)
--- NOTE | 2024-05-05 07:23 | ED ---
General Adult HPI - General Chief complaint: Neuro Symptoms/Deficit Stated complaint: Neuro symptom Time Seen by Provider: 05/05/24 07:00 Source: patient, family, RN notes reviewed Mode of arrival: wheelchair Limitations: no limitations - History of Present Illness Initial comments: Patient is a 64-year-old male present to the emergency department with concerns for recent stroke. Patient on April 22 had cardiac arrest. Patient was admitted for large right sided stroke, non-ST elevation NJ and questionable lung infection. Patient left AGAINST MEDICAL ADVICE yesterday to come back home. Patient states overall he is doing better. Weakness has improved. Patient has had some balance issues however that is new and not currently a problem. Kaden carver states this morning his symptoms were that he was feeling jittery and feeling hot and cold. No chest discomfort at this time. Patient did have CT scans and did have echo. - Related Data Home Medications Medication Instructions Recorded Confirmed Albuterol Inhaler [Ventolin Hfa 2 puff INHALATION RT-QID PRN 04/16/21 04/16/21 Inhaler] Citalopram Hydrobromide [CeleXA] 20 mg PO HS 04/16/21 04/16/21 risperiDONE [RisperDAL] 2 mg PO HS 04/16/21 04/16/21 traZODone HCL 100 mg PO HS 04/16/21 04/16/21 Previous Rx's Medication Instructions Recorded Aspirin 81 mg PO DAILY 30 Days #30 tab 04/17/21 Metoprolol Tartrate [Lopressor] 25 mg PO BID 30 Days #60 tab 04/17/21 lisinopriL [Zestril] 5 mg PO DAILY 30 Days #30 tab 04/17/21 Lidocaine 5% Patch [Lidoderm] 1 patch TOPICAL DAILY 10 Days #10 10/21/21 patch Allergies Allergy/AdvReac Type Severity Reaction Status Date / Time codeine Allergy Rash/Hives Verified 05/17/21 02:16 amoxicillin AdvReac Nausea Verified 05/17/21 02:16 azithromycin [From Zithromax] AdvReac Nausea Verified 05/17/21 02:16 divalproex sodium AdvReac Chest Pain Verified 05/05/24 06:57 [From Depakote] Penicillins AdvReac Nausea Verified 05/17/21 02:16 Review of Systems ROS Statement: Those systems with pertinent positive or pertinent negative responses have been documented in the HPI. ROS Other: All systems not noted in ROS Statement are negative. Constitutional: Denies: fever Eyes: Denies: eye pain ENT: Denies: ear pain Respiratory: Denies: cough Cardiovascular: Denies: chest pain Endocrine: Denies: fatigue Gastrointestinal: Denies: abdominal pain Neurological: Reports: as per HPI. Denies: headache Past Medical History Past Medical History: Asthma, COPD, Eye Disorder, GERD/Reflux, Pneumonia Additional Past Medical History / Comment(s): COVID 02/21, chronic stomach pain, IBS, fluid too thin bilateral eyes/poor vision, pneumonias. History of Any Multi-Drug Resistant Organisms: None Reported Past Surgical History: Orthopedic Surgery Additional Past Surgical History / Comment(s): L leg injury with surgery/anjum dware. Past Anesthesia/Blood Transfusion Reactions: No Reported Reaction Past Psychological History: Anxiety, Depression Smoking Status: Former smoker Past Alcohol Use History: None Reported Past Drug Use History: None Reported - Past Family History Father Family Medical History: Cancer Additional Family Medical History / Comment(s): Father of bone cancer Mother Family Medical History: CVA/TIA Additional Family Medical History / Comment(s): Mother is 78yrs old and has had several strokes. General Exam Limitations: no limitations General appearance: alert, in no apparent distress Head exam: Present: normocephalic Eye exam: Present: normal appearance, PERRL, EOMI ENT exam: Present: normal oropharynx Neck exam: Present: normal inspection Respiratory exam: Present: normal lung sounds bilaterally Cardiovascular Exam: Present: regular rate, normal rhythm GI/Abdominal exam: Present: soft. Absent: tenderness Extremities exam: Present: normal inspection Neurological exam: Present: alert Expanded Neurological exam: Present: protecting the airway, other (Minimal slurred speech) Cranial nerves: EOM's Intact: Normal, Facial Sensation: Normal, Facial Palsy with Forehead Movement: Abnormal Left (Left facial weakness that does not involve the forehead) Sensory exam: Upper Extremity Light Touch: Normal, Lower Extremity Light Touch: Normal Motor strength exam: RUE: 5, LUE: 4, RLE: 5, LLE: 4 Eye Response: (4) open spontaneously Motor Response: (6) obeys commands Verbal Response: (5) oriented Psychiatric exam: Present: normal affect, normal mood Skin exam: Present: normal color Course Vital Signs 05/05/24 05/05/24 05/05/24 06:46 07:40 08:20 Temperature 98.5 F 98.7 F Pulse Rate 85 86 76 Respiratory 18 16 12 Rate Blood Pressure 133/78 115/73 102/65 O2 Sat by Pulse 96 94 L 94 L Oximetry 05/05/24 09:40 Temperature Pulse Rate 70 Respiratory 16 Rate Blood Pressure O2 Sat by Pulse 94 L Oximetry EKG Findings - EKG Results: EKG: interpreted by ERMD, sinus rhythm, normal axis, normal QRS, normal ST/T Medical Decision Making - Medical Decision Making Was pt. sent in by a medical professional or institution (, PA, SUCTION DRUM DRIER OPERATOR, urgent care, hospital, or penitentiary...) When possible be specific @ -No Did you speak to anyone other than the patient for history (EMS, parent, family, police, friend...)? What history was obtained from this source @ -Family's present helps provide significant history including details regarding recent admission and events Did you review nursing and triage notes (agree or disagree)? Why? @ -I reviewed and agree with nursing and triage notes Were old charts reviewed (outside hosp., previous admission, EMS record, old EKG, old radiological studies, urgent care reports/EKG's, penitentiary records)? Report findings @ -Limited chart that was sent was reviewed from [facility] [place] Differential Diagnosis (chest pain, altered mental status, abdominal pain women, abdominal pain men, vaginal bleeding, weakness, fever, dyspnea, syncope, headache, dizziness, GI bleed, back pain, seizure, CVA, palpatations, mental health, musculoskeletal)? @ -Differential Weakness: Hypoglycemia, shock, sepsis, hyponatremia, anemia, infection, NJ, ETOH, adverse medicine reaction, overdose, stroke, this is not meant to be an all-inclusive list. EKG interpreted by me (3pts min.). @ -As above X-rays interpreted by me (1pt min.). @ -Chest x-ray shows no acute process CT interpreted by me (1pt min.). @ -None done U/S interpreted by me (1pt. min.). @ -None done What testing was considered but not performed or refused? (CT, X-rays, U/S, labs)? Why? @ -Considered multiple tests and imaging however patient has had recent admission with this done. What meds were considered but not given or refused? Why? @ -None Did you discuss the management of the patient with other professionals (professionals i.e. , PA, SUCTION DRUM DRIER OPERATOR, lab, RT, psych nurse, social media executive, museum curator, teacher, general service officer, case loader operator)? Give summary @ -Case discussed with Dr. Encarnacion several times Was smoking cessation discussed for >3mins.? @ -No Was critical care preformed (if so, how long)? @ -No Were there social determinants of health that impacted care today? How? (Homelessness, low income, unemployed, alcoholism, drug addiction, transportation, low edu. Level, literacy, decrease access to med. care, prison, rehab)? @ -No Was there de-escalation of care discussed even if they declined (Discuss DNR or withdrawal of care, Hospice)? DNR status @ -No What co-morbidities impacted this encounter? (DM, HTN, Smoking, COPD, CAD, Cancer, CVA, ARF, Chemo, Hep., AIDS, mental health diagnosis, sleep apnea, morbid obesity)? @ -History of recent cardiac arrest and stroke Was patient admitted / discharged? Hospital course, mention meds given and route, prescriptions, significant lab abnormalities, going to OR and other pertinent info. @ -Patient presents as follow-up from recent admission with cardiac arrest, possible NJ and stroke. Patient does not have any new symptoms or complaints. Patient does have left-sided weakness on exam consistent with history. Patient unable to follow-up with residency clinic and Dr. Triana's office is able to see patient today. Patient will be discharged with follow-up with Dr. Triana today. Patient will be given available records that were faxed to us. Undiagnosed new problem with uncertain prognosis? @ -No Drug Therapy requiring intensive monitoring for toxicity (Heparin, Nitro, Insulin, Cardizem)? @ -No Were any procedures done? @ -No Diagnosis/symptom? @ -CVA Acute, or Chronic, or Acute on Chronic? @ -Acute on chronic Uncomplicated (without systemic symptoms) or Complicated (systemic symptoms)? @ -Complicated with recent complicated hospitalization Side effects of treatment? @ -No Exacerbation, Progression, or Severe Exacerbation? @ -No Poses a threat to life or bodily function? How? (Chest pain, USA, NJ, pneumonia, PE, COPD, DKA, ARF, appy, cholecystitis, CVA, Diverticulitis, Homicidal, Suicidal, threat to staff... and all critical care pts) @ -No - Lab Data Result diagrams: 05/05/24 07:29 05/05/24 07:29 Lab Results 05/05/24 05/05/24 05/05/24 Range/Units 07:09 07:29 07:29 WBC 6.3 (3.8-10.6) k/uL RBC 4.50 (4.30-5.90) m/uL Hgb 13.6 (13.0-17.5) gm/dL Hct 41.7 (39.0-53.0) % MCV 92.8 (80.0-100.0) fL MCH 30.2 (25.0-35.0) pg MCHC 32.6 (31.0-37.0) g/dL RDW 12.6 (11.5-15.5) % Plt Count 248 (150-450) k/uL MPV 8.1 Neutrophils % 66 % Lymphocytes % 20 % Monocytes % 9 % Eosinophils % 3 % Basophils % 1 % Neutrophils # 4.2 (1.3-7.7) k/uL Lymphocytes # 1.3 (1.0-4.8) k/uL Monocytes # 0.6 (0-1.0) k/uL Eosinophils # 0.2 (0-0.7) k/uL Basophils # 0.0 (0-0.2) k/uL PT 10.5 (10.0-12.5) sec INR 0.9 (<1.2) APTT 23.4 (22.0-30.0) sec Sodium (137-145) mmol/L Potassium (3.5-5.1) mmol/L Chloride (98-107) mmol/L Carbon Dioxide (22-30) mmol/L Anion Gap mmol/L BUN (9-20) mg/dL Creatinine (0.66-1.25) mg/dL Est GFR (CKD-EPI)AfAm (>60 ml/min/1.73 sqM) Est GFR (CKD-EPI)NonAf (>60 ml/min/1.73 sqM) Glucose (74-99) mg/dL POC Glucose (mg/dL) 167 H (70-110) mg/dL POC Glu Process Mold Technician ID See Murray Lactic Ac Sepsis Rflx Plasma Lactic Acid Иван (0.7-2.0) mmol/L Calcium (8.4-10.2) mg/dL Magnesium (1.6-2.3) mg/dL Total Bilirubin (0.2-1.3) mg/dL AST (17-59) U/L ALT (4-49) U/L Alkaline Phosphatase (38-126) U/L Troponin I (0.000-0.034) ng/mL Total Protein (6.3-8.2) g/dL Albumin (3.5-5.0) g/dL 05/05/24 05/05/24 05/05/24 Range/Units 07:29 07:29 07:29 WBC (3.8-10.6) k/uL RBC (4.30-5.90) m/uL Hgb (13.0-17.5) gm/dL Hct (39.0-53.0) % MCV (80.0-100.0) fL MCH (25.0-35.0) pg MCHC (31.0-37.0) g/dL RDW (11.5-15.5) % Plt Count (150-450) k/uL MPV Neutrophils % % Lymphocytes % % Monocytes % % Eosinophils % % Basophils % % Neutrophils # (1.3-7.7) k/uL Lymphocytes # (1.0-4.8) k/uL Monocytes # (0-1.0) k/uL Eosinophils # (0-0.7) k/uL Basophils # (0-0.2) k/uL PT (10.0-12.5) sec INR (<1.2) APTT (22.0-30.0) sec Sodium 140 (137-145) mmol/L Potassium 4.2 (3.5-5.1) mmol/L Chloride 105 (98-107) mmol/L Carbon Dioxide 27 (22-30) mmol/L Anion Gap 8 mmol/L BUN 21 H (9-20) mg/dL Creatinine 0.97 (0.66-1.25) mg/dL Est GFR (CKD-EPI)AfAm >90 (>60 ml/min/1.73 sqM) Est GFR (CKD-EPI)NonAf 84 (>60 ml/min/1.73 sqM) Glucose 112 H (74-99) mg/dL POC Glucose (mg/dL) (70-110) mg/dL POC Glu Process Mold Technician ID Lactic Ac Sepsis Rflx Plasma Lactic Acid Иван 2.2 H* (0.7-2.0) mmol/L Calcium 9.3 (8.4-10.2) mg/dL Magnesium 1.9 (1.6-2.3) mg/dL Total Bilirubin 0.3 (0.2-1.3) mg/dL AST 49 (17-59) U/L ALT 61 H (4-49) U/L Alkaline Phosphatase 116 (38-126) U/L Troponin I 0.026 (0.000-0.034) ng/mL Total Protein 6.9 (6.3-8.2) g/dL Albumin 4.1 (3.5-5.0) g/dL 05/05/24 Range/Units 07:59 WBC (3.8-10.6) k/uL RBC (4.30-5.90) m/uL Hgb (13.0-17.5) gm/dL Hct (39.0-53.0) % MCV (80.0-100.0) fL MCH (25.0-35.0) pg MCHC (31.0-37.0) g/dL RDW (11.5-15.5) % Plt Count (150-450) k/uL MPV Neutrophils % % Lymphocytes % % Monocytes % % Eosinophils % % Basophils % % Neutrophils # (1.3-7.7) k/uL Lymphocytes # (1.0-4.8) k/uL Monocytes # (0-1.0) k/uL Eosinophils # (0-0.7) k/uL Basophils # (0-0.2) k/uL PT (10.0-12.5) sec INR (<1.2) APTT (22.0-30.0) sec Sodium (137-145) mmol/L Potassium (3.5-5.1) mmol/L Chloride (98-107) mmol/L Carbon Dioxide (22-30) mmol/L Anion Gap mmol/L BUN (9-20) mg/dL Creatinine (0.66-1.25) mg/dL Est GFR (CKD-EPI)AfAm (>60 ml/min/1.73 sqM) Est GFR (CKD-EPI)NonAf (>60 ml/min/1.73 sqM) Glucose (74-99) mg/dL POC Glucose (mg/dL) (70-110) mg/dL POC Glu Process Mold Technician ID Lactic Ac Sepsis Rflx Y Plasma Lactic Acid Иван (0.7-2.0) mmol/L Calcium (8.4-10.2) mg/dL Magnesium (1.6-2.3) mg/dL Total Bilirubin (0.2-1.3) mg/dL AST (17-59) U/L ALT (4-49) U/L Alkaline Phosphatase (38-126) U/L Troponin I (0.000-0.034) ng/mL Total Protein (6.3-8.2) g/dL Albumin (3.5-5.0) g/dL Disposition Clinical Impression: Cerebrovascular accident (CVA) Disposition: HOME SELF-CARE Condition: Stable Instructions (If sedation given, give patient instructions): Self Care Measures After a Stroke (ED), Stroke (DC) Additional Instructions: Please do follow-up with Dr. Barrera's office today as informed. Please return for chest pain, weakness, confusion, difficulty walking, worsening or changing symptoms or any other concerns. Is patient prescribed a controlled substance at d/c from ED?: No Referrals: Lzi Wilson, PAC [REFERRING] - 05/05/24 5:45 pm (New Patient appointment, please bring insurance cards and ID cards. There will be new patient paperwork to complete. Call [facility] to change the PCP and obtain a reference number to bring to appointment. ) Forms: Who Do I Call?, Community Resources, Help In The Home, Personal Manager Mining Time of Disposition: 10:11
[2024-05-05 07:45] LABS: Basophils % (A) 1 %; Eosinophils # (A) 0.2 k/uL (0-0.7); Eosinophils % (A) 3 %; HCT 41.7 % (39.0-53.0); HGB 13.6 gm/dL (13.0-17.5); Lymphocytes # (A) 1.3 k/uL (1.0-4.8); Lymphocytes % (A) 20 %; MCH 30.2 pg (25.0-35.0); MCHC 32.6 g/dL (31.0-37.0); MCV 92.8 fL (80.0-100.0); Mean Platelet Volume 8.1; Monocytes # (A) 0.6 k/uL (0-1.0); Monocytes % (A) 9 %; Neutrophils # (A) 4.2 k/uL (1.3-7.7); Neutrophils % (A) 66 %; Platelet Count 248 k/uL (150-450); RDW 12.6 % (11.5-15.5); WBC 6.3 k/uL (3.8-10.6)
[2024-05-05 07:59] LABS: ALT 61 U/L (4-49); AST 49 U/L (17-59); African American GFR (CKD) >90 (>60 ml/min/1.73 sqM); Albumin 4.1 g/dL (3.5-5.0); Alkaline Phosphatase 116 U/L (38-126); Anion Gap 8 mmol/L; Blood Urea Nitrogen 21 mg/dL (9-20); Calcium 9.3 mg/dL (8.4-10.2); Carbon Dioxide 27 mmol/L (22-30); Chloride 105 mmol/L (98-107); Glucose 112 mg/dL (74-99); Magnesium 1.9 mg/dL (1.6-2.3); Non-African American GFR(CKD) 84 (>60 ml/min/1.73 sqM); Potassium 4.2 mmol/L (3.5-5.1); Sodium 140 mmol/L (137-145); Total Bilirubin 0.3 mg/dL (0.2-1.3); Total Protein 6.9 g/dL (6.3-8.2)
[2024-05-05 08:00] LABS: INR 0.9 (<1.2); Partial Thromboplastin Time 23.4 sec (22.0-30.0); Prothrombin Time 10.5 sec (10.0-12.5)
--- NOTE | 2024-05-05 08:20 | XR ---
EXAMINATION TYPE: XR chest 2V DATE OF EXAM: 05/05/2024 8:03 AM COMPARISON: 05/17/2021 CLINICAL INDICATION: Male, 64 years old with history of Weakness, history of stroke last week , TECHNIQUE: PA and lateral views FINDINGS: The cardiomediastinal silhouette, aorta, and pulmonary vasculature are within normal limits. Lungs an d pleural spaces are clear. IMPRESSION: No acute cardiopulmonary process. [facility], , 05/05/2024 8:17 AM
[2024-05-05 10:10] VITALS: BP 110/80; PULSE 82; RESP 18; TEMP 98
== END 2024-05-05 10:39 | disposition home or self-care (01) ==
LOC: EC 06:43
DX: I63.9 Cerebral infarction, unspecified (principal); Z88.0 Allergy status to penicillin; Z88.1 Allergy status to other antibiotic agents; Z88.8 Allergy status to other drugs, medicaments and biological substances; Z87.891 Personal history of nicotine dependence; Z86.73 Personal history of transient ischemic attack (TIA), and cerebral infarction without residual deficits; Z86.16 Personal history of COVID-19
CPT/HCPCS: 36415; 71046; 80053; 83605; 83735; 84484; 85025; 85610; 85730; 93005; 99284

== ENCOUNTER 2024-05-05 18:29 | Observation (INO) | payer OTHER ==
--- NOTE | 2024-05-05 19:04 | ED ---
General Adult HPI - General Chief complaint: Weakness Stated complaint: weakness Time Seen by Provider: 05/05/24 18:45 Source: patient, RN notes reviewed, old records reviewed Mode of arrival: EMS Limitations: no limitations - History of Present Illness Initial comments: Is a 64-year-old male who was recently admitted to [facility] for having a heart attack and stroke. Patient left AMA and came here was seen earlier here today according to the doctor at that time the patient had no new symptoms and family was aware of this and patient was discharged home to follow-up with a primary medical care doctor today when he got to the primary medical care doctor's office the family told the primary medical care doctor that the patient was more altered than normal and not acting himself so they sent the patient back to us however when I spoke to the patient now is alert and oriented x 4 he denies any new or worsening symptoms. Family is not yet in the room. Patient denies any chest pain difficulty breathing. Patient has abdominal pain patient has headache. Patient denies of nausea vomiting or diarrhea. Patient denies any shortness of breath. - Related Data Home Medications Medication Instructions Recorded Confirmed No Known Home Medications 05/05/24 05/05/24 Allergies Allergy/AdvReac Type Severity Reaction Status Date / Time codeine Allergy Rash/Hives Verified 05/05/24 19:56 amoxicillin AdvReac Nausea Verified 05/05/24 19:56 azithromycin [From Zithromax] AdvReac Nausea Verified 05/05/24 19:56 divalproex sodium AdvReac Chest Pain Verified 05/05/24 19:56 [From Depakote] Penicillins AdvReac Nausea Verified 05/05/24 19:56 Review of Systems ROS Statement: Those systems with pertinent positive or pertinent negative responses have been documented in the HPI. ROS Other: All systems not noted in ROS Statement are negative. Past Medical History Past Medical History: Asthma, COPD, CVA/TIA, Eye Disorder, GERD/Reflux, Pneumonia Additional Past Medical History / Comment(s): COVID 02/21, chronic stomach pain, IBS, fluid too thin bilateral eyes/poor vision, pneumonias. History of Any Multi-Drug Resistant Organisms: None Reported Past Surgical History: Orthopedic Surgery Additional Past Surgical History / Comment(s): L leg injury with surgery/hardware. Past Anesthesia/Blood Transfusion Reactions: No Reported Reaction Past Psychological History: Anxiety, Depression Smoking Status: Former smoker Past Alcohol Use History: None Reported Past Drug Use History: None Reported - Past Family History Father Family Medical History: Cancer Additional Family Medical History / Comment(s): Father of bone cancer Mother Family Medical History: CVA/TIA Additional Family Medical History / Comment(s): Mother is 78yrs old and has had several strokes. General Exam - General Exam Comments Initial Comments: GENERAL: Patient is well-developed and well-nourished. Patient is nontoxic and well- hydrated and is in no acute distress. ENT: Neck is soft and supple. No significant lymphadenopathy is noted. Oropharynx is clear. Moist mucous membranes. Neck has full range of motion without eliciting any pain. EYES: The sclera were anicteric and conjunctiva were pink and moist. Extraocular movements were intact and pupils were equal round and reactive to light. Eyelids were unremarkable. PULMONARY: Unlabored respirations. Good breath sounds bilaterally. No audible rales rhonchi or wheezing was noted. CARDIOVASCULAR: There is a regular rate and rhythm without any murmurs gallops or rubs. Femoral pulses are equal bilaterally ABDOMEN: Soft and nontender with normal bowel sounds. No palpable organomegaly was noted. There is no palpable pulsatile mass. SKIN: Skin is clear with no lesions or rashes and otherwise unremarkable. NEUROLOGIC: Patient is alert and oriented x3. There is some slight facial droop on the left. Patient has weakness in the left hand with stone rigger slight drift in the left arm and cerebellar testing nose to finger on the left is off. Patient's lower extremities were equal bilaterally MUSCULOSKELETAL: Normal extremities with adequate strength and full range of motion. No lower extremity swelling or edema. No calf tenderness. LYMPHATICS: No significant lymphadenopathy is noted PSYCHIATRIC: Normal psychiatric evaluation. Limitations: no limitations Course Vital Signs 05/05/24 05/05/24 18:31 19:44 Temperature 98.4 F Pulse Rate 90 84 Respiratory 16 18 Rate Blood Pressure 116/76 107/67 O2 Sat by Pulse 96 97 Oximetry Medical Decision Making - Medical Decision Making EKG is interpreted by myself but EKG is a sinus rhythm at 86 bpm NE 148 QRS 103 QT interval 346 QTc is 389. Patient's EKG shows no ST segment ovation or depression. Was pt. sent in by a medical professional or institution (, PA, JUNK DEALER, urgent care, hospital, or custodial...) When possible be specific @ -No Did you speak to anyone other than the patient for history (EMS, parent, family, police, friend...)? What history was obtained from this source @ -No Did you review nursing and triage notes (agree or disagree)? Why? @ -I reviewed and agree with nursing and triage notes Were old charts reviewed (outside hosp., previous admission, EMS record, old EKG, old radiological studies, urgent care reports/EKG's, custodial records)? Report findings @ -No old charts were reviewed Differential Diagnosis? @ -Differential CVA Ischemic stroke, hemorrhagic stroke, brain tumor, atypical migraine, Wernicke's encephalopathy, seizure, multiple sclerosis, meningitis, encephalitis, hypoglycemia, Guillain-Ryder, electrolytes disturbance, myasthenia gravis.... This is not meant to be an all-inclusive list EKG interpreted by me (3pts min.). @ -As above X-rays interpreted by me (1pt min.). @ -None done CT interpreted by me (1pt min.). @ -CT of the brain shows no acute abnormality CT of the C-spine shows no acute abnormality U/S interpreted by me (1pt. min.). @ -None done What testing was considered but not performed or refused? (CT, X-rays, U/S, labs)? Why? @ -None What meds were considered but not given or refused? Why? @ -None Did you discuss the management of the patient with other professionals (professionals i.e. , PA, JUNK DEALER, lab, RT, psych nurse, social services specialist, director of fundraising, teacher, probation and parole officer, case investigator)? Give summary @ -I spoke with Dr. Rodriguez he agreed to admit the patient I admitted the patient wrote admitting orders Was smoking cessation discussed for >3mins.? @ -No Was critical care preformed (if so, how long)? @ -No Were there social determinants of health that impacted care today? How? (Homelessness, low income, unemployed, alcoholism, drug addiction, transportation, low edu. Level, literacy, decrease access to med. care, [facility], rehab)? @ -No Was there de-escalation of care discussed even if they declined (Discuss DNR or withdrawal of care, Hospice)? DNR status @ -No What co-morbidities impacted this encounter? (DM, HTN, Smoking, COPD, CAD, Cancer, CVA, ARF, Chemo, Hep., AIDS, mental health diagnosis, sleep apnea, morbid obesity)? @ -None Was patient admitted / discharged? Hospital course, mention meds given and route, prescriptions, significant lab abnormalities, going to OR and other pertinent info. @ -Patient had no new symptoms however he was having intermittent episodes of altered mental status according to family. Spoke to Dr. Rodriguez and he agreed to admit the patient Undiagnosed new problem with uncertain prognosis? @ -No Drug Therapy requiring intensive monitoring for toxicity (Heparin, Nitro, Insulin, Cardizem)? @ -No Were any procedures done? @ -No Diagnosis/symptom? @ -CVA Acute, or Chronic, or Acute on Chronic? @ -Acute Uncomplicated (without systemic symptoms) or Complicated (systemic symptoms)? @ -Complicated Side effects of treatment? @ -No Exacerbation, Progression, or Severe Exacerbation? @ -No Poses a threat to life or bodily function? How? (Chest pain, USA, [place], pneumonia, PE, COPD, DKA, ARF, appy, cholecystitis, CVA, Diverticulitis, Homicidal, Suicidal, threat to staff... and all critical care pts) @ -Yes this can lead to further stroke and morbidity mortality Diagnosis/symptom? @ -Altered mental status Acute, or Chronic, or Acute on Chronic? @ -Acute Uncomplicated (without systemic symptoms) or Complicated (systemic symptoms)? @ -Complicated Side effects of treatment? @ -None Exacerbation, Progression, or Severe Exacerbation] @ -No Poses a threat to life or bodily function? @ -No Disposition Clinical Impression: Cerebrovascular accident (CVA), Altered mental status Disposition: ADMITTED IP TO THIS HOSP Referrals: Deny Barrera MD [Primary Care Provider] - 1-2 days Time of Disposition: 21:21
--- NOTE | 2024-05-05 20:17 | CT ---
EXAMINATION TYPE: CT brain cspine wo con DATE OF EXAM: 05/05/2024 7:42 PM COMPARISON: None. CLINICAL INDICATION: Male, 64 years old with history of Neurodeficit; C/O weakness, hx cva 2 weeks ag o. left side weakness with facial droop. Pt also fell off of CT table before exam. No LOC. TECHNIQUE: Brain: Multiple axial CT images of the brain were obtained without IV contrast. Cspine: Axial CT images from the skull base to the inferior aspect of T2 we obtained without intraven ous contrast. Coronal and sagittal reformatted images were also reviewed. . CT DLP: 1595.1 mGycm, Automated exposure control for dose reduction was used. FINDINGS: Brain: Extra-axial spaces: No abnormal extra-axial fluid collections. Ventricular system: Within normal limits Cerebral parenchyma: Evidence of prior right temporal/parietal lobe CVA. No acute intraparenchymal he morrhage or mass effect. The gunn-white junction is well differentiated. Cerebellum: Unremarkable. Mass effect: No evidence of midline shift. Intracranial vasculature: unremarkable Soft tissues: Normal. Calvarium/osseous structures: No depressed skull fracture. Paranasal sinuses and mastoid air cells: Mild scattered mucosal thickening and or secretions. Visualized orbits: Orbital contents are intact. Cervical spine: Fracture: None. Osseous structures: Multilevel degenerative disc disease changes with endplate spurring and disc oste ophyte complex's. Vertebral alignment: Within normal limits. Spinal canal/Neural Foramina: No evidence of significant spinal canal narrowing. No evidence for sign ificant neural foraminal stenosis. Neck soft tissues: Prevertebral soft tissues are within normal limits. Other: The airway is patent. The lung apices are clear. IMPRESSION: 1. Evidence of prior right temporal/parietal lobe CVA. Correlate with prior imaging at outside insti tution. 2. No evidence of cervical spine fracture. 3. Mild multilevel degenerative disc disease. [facility], , 05/05/2024 8:15 PM
[2024-05-06] MEDS: IBUPROFEN 600 MG TAB PO STA (02:21)
--- NOTE | 2024-05-06 02:35 | P.HPIM ---
History of Present Illness H&P Date: 05/05/24 Patient is a 65-year-old male with a PMH of recent MD and CVA who presents to the emergency room for altered mental status. The patient reports that he primarily works out in [place] where roughly 2 weeks ago he had a sudden onset of left facial droop and left-sided weakness and shortness of breath. The patient was seen at a facility in [facility] where a CT brain revealed a right MCA acute ischemic CVA. The patient was also noted to have elevated troponin. The patient had the documentation from that prior hospitalization which revealed that the patient was confused during that stay and received sedatives and had to have an involuntary 72-hour hold as the patient was insisting on signing out AMA. The patient was subsequently discharged from that facility and had returned home to [place]. He was seen at our emergency department earlier today brought in by his family members for confusion. The patient was noted to be at baseline and subsequently discharged. He was then reportedly seen at his PCPs office where he was noted to not be acting like himself and subsequently sent back to the emergency room. The patient at the time of interview was oriented x 4 and had no active complaints. He did report that his family members have noticed a mild left-sided facial droop but he denied any weakness. He also denies visual disturbances, impaired gait, impaired speech, chest discomfort, shortness of breath, fever, chills, cough, nausea, vomiting, abdominal pain, diarrhea. Unfortunately while the patient was on the CT scan table, he had a fall while trying to turn to the side, striking his face on the ground. He reports minimal facial pain at the time of interview and no other injuries sustained from the fall. Head/cervical spine CT in the emergency room revealed evidence of a prior right temporal/parietal lobe CVA. EKG revealed sinus rhythm at 86 bpm with poor R w ave progression with QTc 389 MS with no other ST/T wave changes noted as reviewed by me. Laboratory evaluation from earlier presentation revealed lactic acid 2.2, troponin 0.026, glucose 112, and BUN 21 with creatinine 0.97. ED documentation reviewed and case discussed with ED provider. Review of systems: Pertinent positives and negatives as discussed in HPI, a complete review of systems was performed and all other systems are negative. Physical examination: Vital signs reviewed General: non toxic, no distress, appears at stated age, normal weight Derm: no unusual rashes/lesions, warm Head: atraumatic, normocephalic, symmetric Eyes: EOMI, no lid lag, anicteric sclera, pupils equal round reactive to light ENT: Nose and ears atraumatic Neck: No cervical lymphadenopathy, trachea midline, supple Mouth: no lip lesion, mucus membranes moist Cardiovascular: S1S2 reg, no murmur, positive dorsalis pedis pulse bilateral, no edema Lungs: CTA bilateral, no rhonchi, no rales, no accessory muscle use Abdominal: soft, nontender to palpation, no guarding Ext: muscle strength 5 out of 5 in all 4 extremities grossly, no gross muscle atrophy, no contractures, Neuro: Mild left-sided facial droop, CN II-XI otherwise grossly intact, no other gross focal neuro deficits Psych: Alert, oriented, appropriate affect Assessment: Altered mental status, now resolved Recent ischemic CVA Recent MD Lactic acidosis, resolved Chronic conditions: COPD, GERD Imaging: Head/cervical spine CT in the emergency room revealed evidence of a prior right temporal/parietal lobe CVA. EKG revealed sinus rhythm at 86 bpm with poor R wave progression with QTc 389 MS with no other ST/T wave changes noted as reviewed by me. Data Review: Laboratory evaluation from earlier presentation revealed lactic acid 2.2, troponin 0.026, glucose 112, and BUN 21 with creatinine 0.97. Plan: Neurology consult Neurochecks Fall precautions PT and speech consults Cardiac monitoring Resume home medications once reconciled Consult Cardiology DVT prophylaxis: Lovenox subcu The patient is admitted with an anticipated greater than 2 midnight stay for evaluation of altered mental status CODE STATUS: Full Code Discussed with: Patient Anticipated discharge place: Home Past Medical History Past Medical History: Asthma, COPD, CVA/TIA, Eye Disorder, GERD/Reflux, Pneumonia Additional Past Medical History / Comment(s): COVID 02/21, chronic stomach pain, IBS, fluid too thin bilateral eyes/poor vision, pneumonias. History of Any Multi-Drug Resistant Organisms: None Reported Past Surgical History: Orthopedic Surgery Additional Past Surgical History / Comment(s): L leg injury with surgery/hardware. Past Anesthesia/Blood Transfusion Reactions: No Reported Reaction Past Psychological History: Anxiety, Depression Smoking Status: Former smoker Past Alcohol Use History: None Reported Past Drug Use History: None Reported - Past Family History Father Family Medical History: Cancer Additional Family Medical History / Comment(s): Father of bone cancer Mother Family Medical History: CVA/TIA Additional Family Medical History / Comment(s): Mother is 78yrs old and has had several strokes. Medications and Allergies Home Medications Medication Instructions Recorded Confirmed Type No Known Home Medications 05/05/24 05/05/24 History Allergies Allergy/AdvReac Type Severity Reaction Status Date / Time codeine Allergy Rash/Hives Verified 05/05/24 19:56 amoxicillin AdvReac Nausea Verified 05/05/24 19:56 azithromycin [From Zithromax] AdvReac Nausea Verified 05/05/24 19:56 divalproex sodium AdvReac Chest Pain Verified 05/05/24 19:56 [From Depakote] Penicillins AdvReac Nausea Verified 05/05/24 19:56 Physical Exam Vitals: Vital Signs Temp Pulse Resp BP Pulse Ox 05/05/24 23:00 66 16 125/84 97 05/05/24 19:44 84 18 107/67 97 05/05/24 18:31 98.4 F 90 16 116/76 96 Intake and Output 05/05/24 05/05/24 05/06/24 14:59 22:59 06:59 Other: Weight 81.647 kg
[2024-05-06 09:23] LABS: Chol/HDL Ratio 3.24 Ratio; LDL Cholesterol,Calculated 71.4 mg/dL (0.0-131.0); VLDL Calculation 14.98 mg/dL (5.00-40.00)
[2024-05-06 09:44] LABS: HCT 38.3 % (39.0-53.0); MCH 31.4 pg (25.0-35.0); MCV 92.4 fL (80.0-100.0); Mean Platelet Volume 8.3; Platelet Count 203 k/uL (150-450); RBC 4.15 m/uL (4.30-5.90); RDW 12.7 % (11.5-15.5); WBC 4.8 k/uL (3.8-10.6)
[2024-05-06 09:53] LABS: ALT 46 U/L (4-49); AST 41 U/L (17-59); African American GFR (CKD) >90 (>60 ml/min/1.73 sqM); Albumin 3.5 g/dL (3.5-5.0); Alkaline Phosphatase 101 U/L (38-126); Anion Gap 8 mmol/L; Blood Urea Nitrogen 16 mg/dL (9-20); Calcium 8.9 mg/dL (8.4-10.2); Carbon Dioxide 27 mmol/L (22-30); Chloride 107 mmol/L (98-107); Glucose 133 mg/dL (74-99); Non-African American GFR(CKD) 84 (>60 ml/min/1.73 sqM); Potassium 3.9 mmol/L (3.5-5.1); Sodium 142 mmol/L (137-145); Total Bilirubin 0.4 mg/dL (0.2-1.3); Total Protein 6.1 g/dL (6.3-8.2)
[2024-05-06] MEDS: ATORVASTATIN 40 MG TAB PO SCH (10:05)
[2024-05-06] MEDS: ASPIRIN 81 MG PO SCH (10:05)
--- NOTE | 2024-05-06 12:33 | XR ---
EXAMINATION TYPE: XR hand complete 3 views RT DATE OF EXAM: 05/06/2024 COMPARISON: NONE CLINICAL INDICATION: Male, 64 years old with history of right hand pain s/p fall on 05/05/23; FINDINGS: A ring in place on the pinky finger. Some external artifacts and re-adjacent to the finger. Degenerative spurring first CMC joint as well as the first-third MCP joints. Soft tissue swelling ov erlying the nodules. No acute fracture, subluxation, dislocation is seen. IMPRESSION: Degenerative spurring first-third MCP joints. Some soft tissue swelling overlying the knuckles on the lateral view. No acute osseous abnormality seen. [facility], , 05/06/2024 12:31 PM
--- NOTE | 2024-05-06 14:26 | P.CNNES ---
History of Present Illness Consult date: 05/06/24 Requesting physician: Wilver Pandya Reason for Consult: altered mental status, old cva History of Present Illness: This is a 64-year-old gentleman with a recent right MCA stroke with residual left hemiparesis who presented to our emergency department because of altered mental status. History is obtained from the patient's daughter was at bedside. It seems that it patient suffered a recent stroke about 2 weeks ago and had extensive workup at outside hospital in [facility] but patient left AMA. 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 Seems that he had extensive workup per the daughter but he was on restraints for 9 days according to the patient and eventually he left AMA. During his hospital visit he was placed on Eliquis since they felt it was cardiac in origin but patient does not have any underlying history of A-fib or flutter but does have chronic history of systolic heart failure with ejection fraction of 25%. Seems that the patient was placed at the outside hospital on Depakote for his mood. He did have a 6-hour EEG and it was negative for any seizure at the outside hospital. Patient does not have any history of stroke in the past. He does not have any history of A-fib or flutter as stated above. Since he left AMA he was not given any medication. He does follow-up with Dr. Arana for his systolic heart failure and was told that he needs a pacemaker. Does have underlying history of hypertension. Per the daughter since the patient left the outside hospital he was just feeling weird and had a hard time describing it. No seizure-like activity noted. Some of the workup during this hospital visit consisted of: Lipid panel is triglyceride 74, cholesterol is 125, LDL 71 and HDL is 38 I reviewed the rest of the lab workup. CT of the head is reported as evidence of prior right temporal parietal lobe CVA. Correlate with prior imaging at outside institution. Reviewed the CT and agree there is no acute or subacute stroke but patient does have an old right MCA stroke. CT cervical spine is reported as no evidence of cervical spine fracture. Review of Systems As per HPI. Past Medical History Past Medical History: Asthma, COPD, CVA/TIA, Eye Disorder, GERD/Reflux, Pneumonia Additional Past Medical History / Comment(s): COVID 02/21, chronic stomach pain, IBS, fluid too thin bilateral eyes/poor vision, pneumonias. History of Any Multi-Drug Resistant Organisms: None Reported Past Surgical History: Orthopedic Surgery Additional Past Surgical History / Comment(s): L leg injury with surgery/hardware. Past Anesthesia/Blood Transfusion Reactions: No Reported Reaction Past Psychological History: Anxiety, Depression Smoking Status: Former smoker Past Alcohol Use History: None Reported Past Drug Use History: None Reported - Past Family History Father Family Medical History: Cancer Additional Family Medical History / Comment(s): Father of bone cancer Mother Family Medical History: CVA/TIA Additional Family Medical History / Comment(s): Mother is 78yrs old and has had several strokes. Medications and Allergies Home Medications Medication Instructions Recorded Confirmed Type No Known Home Medications 05/05/24 05/05/24 History Allergies Allergy/AdvReac Type Severity Reaction Status Date / Time codeine Allergy Rash/Hives Verified 05/05/24 19:56 amoxicillin AdvReac Nausea Verified 05/05/24 19:56 azithromycin [From Zithromax] AdvReac Nausea Verified 05/05/24 19:56 divalproex sodium AdvReac Chest Pain Verified 05/05/24 19:56 [From Depakote] Penicillins AdvReac Nausea Verified 05/05/24 19:56 Physical Examination - Vital Signs Vital Signs: Vital Signs Temp Pulse Pulse Resp BP BP Pulse Ox 05/06/24 13:45 97.8 F 83 14 95/59 96 05/06/24 13:15 97.6 F 79 16 99/65 96 05/06/24 09:50 113/72 98 05/06/24 06:31 76 16 108/55 97 05/06/24 04:22 70 16 105/82 97 05/06/24 02:00 82 18 115/66 97 05/05/24 23:00 66 16 125/84 97 05/05/24 19:44 84 18 107/67 97 05/05/24 18:31 98.4 F 90 16 116/76 96 Intake and Output 05/05/24 05/06/24 05/06/24 22:59 06:59 14:59 Other: Weight 81.647 kg General: Lying in bed and is not in acute distress. Neuro: Somewhat limited because of cooperation. Patient is awake alert oriented to self place and time. Is following simple commands. No aphasia. Patient does have left lower lower facial droop. No dysarthria. Motor somewhat limited over the left side because of his cooperation but the right is 5 out of 5. The left when he lifted bilateral upper extremity was u nsteady but on examination I felt was normal and I felt was more ataxic. Sensation is normal to touch Cerebellar appears ataxic [id number]. Reflexes 2 positive throughout. Plantars are mute Results - Laboratory Findings CBC and BMP: 05/06/24 09:23 05/06/24 09:23 Abnormal Lab Findings: Abnormal Labs 05/05/24 05/06/24 05/06/24 07:29 09:23 09:23 RBC 4.15 L Hct 38.3 L Glucose 133 H Total Protein 6.1 L HDL Cholesterol 38.60 L Assessment and Plan Assessment: This is a 64-year-old gentleman who had a recent stroke about 2 weeks ago and while he was hospitalized while working in [facility] and had extensive workup and found to have right MCA stroke/M2 blockage per the daughter and was placed on Eliquis since at the outside hospital was felt it was cardiac in origin. No A-fib or flutter per family members. Patient left AMA at the outside hospital he presented to our facility because of "feeling weird". Altered mental status likely due to his recent stroke. Currently patient is oriented x 3. And some component of metabolic encaphlopathy. Per family members he had 6-hour prolonged EEG at outside facility and no seizure. Recent right MCA stroke and on examination I felt the patient has left facial droop and I felt he was ataxic and per family members he is weak on the left side. Patient had extensive workup at outside hospital in [facility] History of Systolic heart failure (EF 25%) Hypertension Plan: Patient was placed on aspirin 81 mg and Lipitor 40 mg daily by the primary team. He was recently placed on Eliquis at outside facility since was suspected was cardiac in origin but patient did not have any A-fib or flutter per family members. Will obtain outside hospital records for further details and I will defer the use of anticoagulation to the primary team and cardiology team.. Recommend cardiology consultation I ordered TSH, vitamin B12, ammonia level Will discontinue the routine EEG since patient had a prolonged EEG at the outside facility and will get the record for further evaluation Continue neurochecks Cardiac monitoring PT OT and BUILDING CARPENTER HELPER are consulted Will defer the rest of the medical management to primary and other specialist For DVT prophylaxis I started the patient on subcu heparin 5000 every 12 hours. The plan discussed with the patient, his daughter was at bedside as well as his ex- and as well as the primary team nurse practitioner. Thank you for the consultation. Time with Patient: Greater than 30
--- NOTE | 2024-05-06 15:52 | P.PN ---
Subjective Progress Note Date: 05/06/24 Hospital course: Patient is a very pleasant 64-year-old male with a past medical history of CAD status post stenting, ischemic cardiomyopathy with previously known EF of 20 to 25%, recent CVA, COPD and continued nicotine dependence, and GERD. Patient presented to the emergency department on 05/05/2024 secondary to altered mental status. Per patient and family at bedside, patient recently suffered ischemic stroke of right MCA and underwent nearly 2-week ICU admission at [facility] in [place]. Patient reportedly signed out AMA 3 days ago and has not been taking any of his medications. Patient's daughter at bedside reports he has had increased periods of confusion and altered mentation so they brought him to the emergency department for evaluation. Upon arrival to our facility, patient underwent evaluation in the emergency department. Vital signs upon arrival show blood pressure 116/76, heart rate 90, respiratory rate 16, temp 98.4 F, and SpO2 of 96% on room air. EKG completed showing normal sinus rhythm at 86 bpm with nonspecific T wave abnormalities. CT head and cervical spine were completed. CT head showing evidence of prior right temporal/parietal lobe CVA, mild multilevel degenerative disc disease, but negative for acute process or evidence of fracture of cervical spine. Laboratory evaluation from earlier presentation revealed lactic acid 2.2, troponin 0.026, glucose 112, and BUN 21 with creatinine 0.97. Patient admitted under our services with consultation to neurology. Awaiting medical record documentation faxed from [facility]. Physical exam: Patient seen and fully evaluated at bedside. Family members also present. Patient currently at baseline mentation alert and oriented to person, place, time, and situation. He denies any headache, lightheadedness, dizziness, chest pain, palpitations, shortness of breath or experiencing any numbness/tingling/we akness in his extremities. Vital signs reviewed and stable. General: Nontoxic, no distress and appears stated age. Derm: Skin warm and dry, normal coloration for ethnicity. Head: Atraumatic, normocephalic and symmetric. Eyes: EOM's intact, no lid lag, and anicteric sclera Mouth: no lip lesions, mucus membranes moist Cardiovascular: regular rate and rhythm with normal S1S2, no murmur, positive posterior tibial pulses bilaterally, and cap refill < 2 seconds. Lungs: Respirations even, regular, and unlabored on room air. Lungs CTA bilaterally, no rhonchi, no rales, no wheezing, and no accessory muscle usage. Abdominal: soft, nontender to palpation, no guarding, no appreciable organomega ly Ext: ROM intact. No gross muscle atrophy, no edema, no contractures Neuro: Speech clear, face symmetrical and CN II-XII grossly intact with no noted focal neuro deficits Psych: Alert and oriented to person, place, time, and situation. Appropriate and pleasant affect. Assessment and Plan of Care: Altered mental status, now resolved Recent ischemic CVA History of CAD status post stenting History of ischemic cardiomyopathy with reported EF of 20 to 25% COPD, not in acute exacerbation Nicotine dependence Lactic acidosis, resolved -Neurology consulted, appreciate recommendations. -Neurochecks every 4 hours -Fall precautions -Telemetry monitoring. -Pending receiving transfer records from [facility], patient starte d on aspirin 81 mg and atorvastatin 40 mg daily. -Again pending transfer records may consider repeating echocardiogram and consultation to cardiology. -DVT prophylaxis with heparin 5000 units every 8 hours. -Physical and Occupational Therapy consulted -Recommend smoking cessation and order placed for nicotine patch 21 mg daily. Data and imaging reviewed Labs reviewed. CBC showing no significant abnormalities. BMP unremarkable. Blood glucose 133. Magnesium 2.0. Liver profile normal findings. TSH 1.260. Lipid profile unremarkable with exception of low HDL of 38.60. Ammonia normal findings at 24. Vital signs reviewed. Blood pressure 108/55, heart rate 76, respiratory rate 16, and SpO2 of 97% on room air. CODE STATUS: Full code DVT prophylaxis: Heparin Anticipated discharge date: Pending clinical course Anticipated discharge place: Home Patient was seen independently by Nurse Pracitioner. This document was prepared using [employer] dictation software. Please allow for errors in director of global talent, while rare they do occur. Abhay Oates NP rendered care for this patient independently, reviewed the findings and plan as documented in the note above and agree with plan. I did n ot physically speak with or examine the patient on this date. Objective - Vital Signs Vital signs: Vital Signs Temp 98.4 F 05/05/24 18:31 Pulse 76 05/06/24 06:31 Resp 16 05/06/24 06:31 BP 108/55 05/06/24 06:31 Pulse Ox 97 05/06/24 06:31 FiO2 Intake & Output 05/05/24 05/06/2425 18:59 06:59 18:59 Weight 81.647 kg - Labs CBC & Chem 7: 05/06/24 09:23 05/06/24 09:23
[2024-05-06] MEDS: NICOTINE 21MG/24HR PATCH TRANSDERM SCH (16:15)
[2024-05-06] MEDS: HEPARIN SODIUM,PORCINE 5,000 UNIT/ML 1 ML VIAL SQ SCH (16:16)
[2024-05-06] MEDS ORDERED: HEPARIN SODIUM,PORCINE 5,000 UNIT/ML 1 ML VIAL SQ SCH (21:00)
[2024-05-07 06:32] LABS: HCT 37.8 % (39.0-53.0); HGB 12.5 gm/dL (13.0-17.5); MCH 30.4 pg (25.0-35.0); MCHC 33.1 g/dL (31.0-37.0); MCV 91.8 fL (80.0-100.0); Mean Platelet Volume 8.1; Platelet Count 223 k/uL (150-450); RBC 4.12 m/uL (4.30-5.90); RDW 12.6 % (11.5-15.5); WBC 6.1 k/uL (3.8-10.6)
[2024-05-07 06:47] LABS: ALT 52 U/L (4-49); AST 41 U/L (17-59); African American GFR (CKD) >90 (>60 ml/min/1.73 sqM); Albumin 3.5 g/dL (3.5-5.0); Alkaline Phosphatase 106 U/L (38-126); Anion Gap 9 mmol/L; Blood Urea Nitrogen 18 mg/dL (9-20); Calcium 8.8 mg/dL (8.4-10.2); Carbon Dioxide 25 mmol/L (22-30); Chloride 104 mmol/L (98-107); Glucose 97 mg/dL (74-99); Non-African American GFR(CKD) 87 (>60 ml/min/1.73 sqM); Potassium 4.1 mmol/L (3.5-5.1); Sodium 138 mmol/L (137-145); Total Bilirubin 0.5 mg/dL (0.2-1.3); Total Protein 6.2 g/dL (6.3-8.2)
--- NOTE | 2024-05-07 13:56 | P.PN ---
Subjective Progress Note Date: 05/07/24 I am following-up with patient and he feels he is doing ok. Denies any new neurological issues. Objective - Vital Signs Vital signs: Vital Signs Temp 98.1 F 05/07/24 08:00 Pulse 88 05/07/24 11:17 Resp 14 05/07/24 11:17 BP 97/50 05/07/24 11:17 Pulse Ox 94 L 05/07/24 11:17 FiO2 Intake & Output 05/06/24 05/07/24 05/07/24 18:59 06:59 18:59 Intake Total 0 Output Total 1 Balance -1 0 Weight 81.647 kg Intake: Oral 0 Output: Urine 1 Other: Voiding Method Toilet Toilet Toilet # Voids 1 - Exam General: Sitting in a recliner chair and is not in acute distress. Neuro: Somewhat limited because of his cooperation. Patient is awake alert oriented to self place and time. He does not seem that much cooperative during examination. He followed few simple commands. He does have left lower facial weakness. Motor the strength is hard to assess individual muscle strength because of his cooperation but briefly raised all extremity above gravity and seems that he is unsteady over the left upper extremity. Patient has ataxia on the left upper extremity with [id number]. Some of the workup during this hospital visit consisted of: Lipid panel is triglyceride 74, cholesterol is 125, LDL 71 and HDL is 38 Vitamin B12 is 858 TSH is 1.260 Ammonia level is 24 CT of the head is reported as evidence of prior right temporal parietal lobe CVA. Correlate with prior imaging at outside institution. Reviewed the CT and agree there is no acute or subacute stroke but patient does have an old right MCA stroke. CT cervical spine is reported as no evidence of cervical spine fracture. - Labs CBC & Chem 7: 05/07/24 06:14 05/07/24 06:14 Labs: Abnormal Lab Results - Last 24 Hours (Table) 05/07/24 05/07/24 Range/Units 06:14 06:14 RBC 4.12 L (4.30-5.90) m/uL Hgb 12.5 L (13.0-17.5) gm/dL Hct 37.8 L (39.0-53.0) % ALT 52 H (4-49) U/L Total Protein 6.2 L (6.3-8.2) g/dL Assessment and Plan Assessment: This is a 64-year-old gentleman who had a recent stroke about 2 weeks ago and while he was hospitalized while working in [facility] and had extensive workup and found to have right MCA stroke/M2 blockage per the daughter and was placed on Eliquis since at the outside hospital was felt it was cardiac in origin. No A-fib or flutter per family members. Patient left AMA at the outside hospital he presented to our facility because of "feeling weird". Altered mental status likely due to his recent stroke. Currently patient is oriented x 3. And some component of metabolic encaphlopathy. Per family members he had 6-hour prolonged EEG at outside facility and no seizure. Recent right MCA stroke and on examination I felt the patient has left facial droop and I felt he was ataxic and per family members he is weak on the left side. Patient had extensive workup at outside hospital in [facility] History of Systolic heart failure (EF 25%) Hypertension Plan: Patient was placed on aspirin 81 mg and Lipitor 40 mg daily by the primary team. He was recently placed on Eliquis at outside facility since was suspected was cardiac in origin but patient did not have any A-fib or flutter per family members. Will obtain outside hospital records for further details and I will defer the use of anticoagulation to the primary team and cardiology team.. Recommend cardiology consultation Continue neurochecks Cardiac monitoring PT OT and COMPUTER SYSTEMS SOFTWARE ARCHITECT are consulted Will defer the rest of the medical management to primary and other specialist For DVT prophylaxis I started the patient on subcu heparin 5000 every 12 hours. The plan discussed with the patient as well as the primary team nurse practitioner. Time with Patient: Less than 30
[2024-05-07] MEDS: LORazepam 2 MG/ML INJ IV STA (15:51)
[2024-05-07] MEDS ORDERED: LORazepam 1 MG TAB PO PRN (16:51)
--- NOTE | 2024-05-07 17:06 | P.PN ---
Subjective Progress Note Date: 05/07/24 Hospital course: Patient is a very pleasant 64-year-old male with a past medical history of CAD status post stenting, ischemic cardiomyopathy with previously known EF of 20 to 25%, recent CVA, COPD and continued nicotine dependence, and GERD. Patient presented to the emergency department on 05/05/2024 secondary to worsening altered mental status. Per patient and family at bedside, patient recently suffered ischemic stroke of right MCA and NSTEMI and underwent nearly 2-week ICU admission at [facility] in [place] prior to signing out AMA and has not been taking any of his medications since. Patient's daughter at bedside reports he has had increased periods of confusion and altered mentation so they brought him to the emergency department for evaluation. Upon arrival to our facility, patient underwent evaluation in the emergency department. Vital signs upon arrival show blood pressure 116/76, heart rate 90, respiratory rate 16, temp 98.4 F, and SpO2 of 96% on room air. EKG completed showing normal sinus rhythm at 86 bpm with nonspecific T wave abnormalities. CT head and cervical spine were completed. CT head showing evidence of prior right temporal/parietal lobe CVA, mild multilevel degenerative disc disease, but negative for acute process or evidence of fracture of cervical spine. Laboratory evaluation from earlier presentation revealed lactic acid 2.2, troponin 0.026, glucose 112, and BUN 21 with creatinine 0.97. Patient admitted under our services with consultation to neurology. Transfer records from [facility] received and reviewed, reporting patient with acute nonhemorrhagic infarct involving the right temporal lobe, posterior aspect of right insula, and a small portion of the right frontal lobe with developing cytotoxic edema with mild mass effect upon the right lateral ventricle and trace right to left midline shift. CT angio reported no carotid stenosis. Echocardiogram completed at their facility reported EF of 25 to 30% with severe global hypokinesis, moderate mitral regurgitation and mild tricuspid regurgitation. Physical exam: Patient seen and fully evaluated at bedside this morning. Patient agitated and aggravated over hospitalization. Patient frustrated over recommendations for medications administered including aspirin and atorvastatin. Patient was educated on recommendations Vital signs reviewed and stable. General: Nontoxic, no distress and appears stated age. Derm: Skin warm and dry, normal coloration for ethnicity. Head: Atraumatic, normocephalic and symmetric. Eyes: EOM's intact, no lid lag, and anicteric sclera Mouth: no lip lesions, mucus membranes moist Cardiovascular: regular rate and rhythm with normal S1S2, systolic murmur, positive posterior tibial pulses bilaterally, and cap refill < 2 seconds. Lungs: Respirations even, regular, and unlabored on room air. Lungs CTA bilaterally, no rhonchi, no rales, no wheezing, and no accessory muscle usage. Abdominal: soft, nontender to palpation, no guarding, no appreciable organomegaly Ext: ROM intact. No gross muscle atrophy, no edema, no contractures Neuro: Speech clear, face symmetrical and CN II-XII grossly intact with no noted focal neuro deficits Psych: Alert and oriented to person, place, time, and situation. Appropriate and pleasant affect. Assessment and Plan of Care: Altered mental status, now resolved Recent ischemic CVA History of CAD status post stenting Ischemic cardiomyopathy with EF of 25 to 30% COPD, not in acute exacerbation Nicotine dependence, family reported nicotine use patient currently denies Lactic acidosis, resolved -Neurology following and discussed case and plan of care in detail with Dr. Don and he is recommending MARLIN. -Cardiology consulted secondary to recent NSTEMI and CVA with ischemic cardiomyopathy with EF of 25 to 30% and for eval for possible MARLIN. -Neurochecks every 4 hours -Fall precautions -Telemetry monitoring. - Transfer records from [facility] reviewed, reporting patient with acute nonhemorrhagic infarct involving the right temporal lobe, posterior aspect of right insula, and a small portion of the right frontal lobe with developing cytotoxic edema with mild mass effect upon the right lateral ventricle and trace right to left midline shift. CT angio reported no carotid stenosis. Echocardi ogram completed at their facility reported EF of 25 to 30% with severe global hypokinesis, moderate mitral regurgitation and mild tricuspid regurgitation. -Patient reports that he was started on Eliquis at previous facility pending completion of further testing as they were concerned for stroke to be of embolic in nature. Patient left AMA and has not been on any anticoagulant since leaving that facility. -Continue aspirin 81 mg daily and atorvastatin 40 mg daily pending further recommendations from checkman and neurologist. -DVT prophylaxis with heparin 5000 units every 8 hours. -Physical and Occupational Therapy consulted -Recommend smoking cessation and order placed for nicotine patch 21 mg daily. Data and imaging reviewed -Transfer records from [facility] reviewed, reporting patient with acute nonhemorrhagic infarct involving the right temporal lobe, posterior aspect of right insula, and a small portion of the right frontal lobe with developing cytotoxic edema with mild mass effect upon the right lateral ventricle and trace right to left midline shift. CT angio reported no carotid stenosis. Ech ocardiogram completed at their facility reported EF of 25 to 30% with severe global hypokinesis, moderate mitral regurgitation and mild tricuspid regurgitation. Labs reviewed. CBC showing no significant abnormalities. BMP unremarkable. Blood glucose 97. Magnesium 2.0. Liver profile showing a slightly elevated ALT of 52 otherwise normal findings. Vitamin B12 858 and TSH 1.260. Vital signs reviewed. Blood pressure 98/58, heart rate 83, respiratory rate 14, temp 98.1 F, and SpO2 100% on room air. CODE STATUS: Full code DVT prophylaxis: Heparin Anticipated discharge date: Pending clinical course Anticipated discharge place: Home Patient was seen independently by Nurse Pracitioner. This document was prepared using [employer] dictation software. Please allow for errors in top loader, while rare they do occur. Abhay Oates NP rendered care for this patient independently, reviewed the findings and plan as documented in the note above and agree with plan. I did not physically speak with or examine the patient on this date. Objective - Vital Signs Vital signs: Vital Signs Temp 98.1 F 05/07/24 08:00 Pulse 83 05/07/24 08:00 Resp 14 05/07/24 08:00 BP 98/58 05/07/24 08:00 Pulse Ox 100 05/07/24 08:00 FiO2 Intake & Output 05/06/24 05/07/24 05/07/24 18:59 06:59 18:59 Output Total 1 Balance -1 Weight 81.647 kg Output: Urine 1 Other: Voiding Method Toilet Toilet # Voids 1 - Labs CBC & Chem 7: 05/07/24 06:14 05/07/24 06:14 Labs: Abnormal Lab Results - Last 24 Hours (Table) 05/06/24 05/06/24 05/07/24 Range/Units 09:23 09:23 06:14 RBC 4.15 L 4.12 L (4.30-5.90) m/uL Hgb 12.5 L (13.0-17.5) gm/dL Hct 38.3 L 37.8 L (39.0-53.0) % Glucose 133 H (74-99) mg/dL ALT (4-49) U/L Total Protein 6.1 L (6.3-8.2) g/dL 05/07/24 Range/Units 06:14 RBC (4.30-5.90) m/uL Hgb (13.0-17.5) gm/dL Hct (39.0-53.0) % Glucose (74-99) mg/dL ALT 52 H (4-49) U/L Total Protein 6.2 L (6.3-8.2) g/dL
[2024-05-08] MEDS: DAPAGLIFLOZIN PROPANEDIOL 10 MG TABLET PO SCH (12:19)
[2024-05-08] MEDS: METOPROLOL SUCCINATE (ER) 25 MG TAB.ER.24H PO SCH (12:19)
--- NOTE | 2024-05-08 12:49 | P.CRDCN ---
History of Present Illness History of present illness: HISTORY OF PRESENT ILLNESS: This is a 64-year-old male with a past medical history significant for ADHD, cardiomyopathy, normal coronary arteries, previous drug and alcohol use, and recent CVA. Patient follows in the office with Dr. Arana. However he established as a new patient in December 2022 and has not been seen since. We have been asked to see the patient in consultation for recent CVA and cardiomyopathy. Patient examined at the bedside. Patient is sleeping at the time of e xamination. According to the patient's nurse, patient has been noncompliant since coming to the hospital and refusing to wear telemetry or to take his medications. Patient also becoming agitated and belligerent at times towards the staff. His family is at the bedside and providing the majority of the HPI. They state that the patient works in [place] from Thursday through Thursday and then resides here on the weekends. He was recently down in [place] when he began to feel short of breath and called 911. Apparently he had a facial droop that was noted by EMS as well. He was diagnosed with right MCA ischemic stroke. Patient was also found to have elevated troponins at that time. Patient ended up leaving the hospital AGAINST MEDICAL ADVICE and has not been taking any of his medications since. Patient's family states that he has been having altered mental status at home and not acting like himself. DIAGNOSTICS: - EKG reveals sinus mechanism with no signs of acute ischemia - Laboratory data: WBC 6.1. Hemoglobin 12.5. Platelet count 223. Sodium 138. Potassium 4.1. BUN 18. Creatinine 0.94. TSH 1.260. - Current home cardiac medications include none - Most recent echocardiogram obtained at this facility was completed in April 2021 revealing ejection fraction 30 to 35%, moderate global hypokinesis of LV, mild MR, mild TR - Patient did have an echocardiogram performed at his recent hospitalization in [place] revealing EF 25 to 30% with severe global hypokinesis, moderate MR and mild TR - Cardiac catheterization history: April 2021 revealing normal coronary arteries REVIEW OF SYSTEMS: Completed with help of patients family At the time of my exam: CONSTITUTIONAL: Denies fever or chills. HEENT: Denies blurred vision, vision changes, or eye pain. Denies hemoptysis CARDIOVASCULAR: Denies chest pain. Denies orthopnea. Denies PND. Denies palpitations RESPIRATORY: Denies shortness of breath. GASTROINTESTINAL: Denies abdominal pain. Denies nausea or vomiting. HEMATOLOGIC: Denies bleeding disorders. GENITOURINARY: Denies any blood in urine. SKIN: Denies pruitis. Denies rash. PHYSICAL EXAM: VITAL SIGNS: Reviewed. GENERAL: Well-developed in no acute distress. HEENT: Head is normocephalic. Pupils are equal, round. Sclerae anicteric. Mucous membranes of the mouth are moist. Neck supple. No JVD or thyromegaly LUNGS: Respirations even and unlabored. Lungs essentially clear to auscultation bilaterally. HEART: Regular rate and rhythm. S1 and S2 heard. ABDOMEN: Soft. Nondistended. Nontender. EXTREMITIES: Normal range of motion. No clubbing or cyanosis. Peripheral pulses intact. No lower extremity edema NEUROLOGIC: Sleeping ASSESSMENT: Altered mental status Recent ischemic CVA of right MCA territory Recent non-STEMI, likely type II [place] Known nonischemic cardiomyopathy, 20 to 25% Normal coronary arteries, per cath in 04/2021, no history of CAD or prior sten ting History of previous drug and alcohol use History of ADHD History of medication noncompliance PLAN: No need to obtain echo as this was performed recently in [place] Continue aspirin 81 mg daily Add Farxiga 10 mg daily and metoprolol succinate 12.5 mg daily If blood pressures are stable, will add Aldactone tomorrow Continue telemetry monitoring to assess for any arrhythmias Medication compliance reinforced with patient's family Recommend eventual outpatient ICD implantation Further recommendations pending patient course Nurse practitioner note has been reviewed by physician. Signing provider agrees with the documented findings, assessment, and plan of care documented by HIGH SCHOOL HISTORY TEACHER as a scribe. Past Medical History Past Medical History: Asthma, COPD, CVA/TIA, Eye Disorder, GERD/Reflux, Pneumonia Additional Past Medical History / Comment(s): COVID 02/21, chronic stomach pain, IBS, fluid too thin bilateral eyes/poor vision, pneumonias. Last Myocardial Infarction Date:: 04/22/24 History of Any Multi-Drug Resistant Organisms: None Reported Past Surgical History: Orthopedic Surgery Additional Past Surgical History / Comment(s): L leg injury with surgery/hardware. Past Anesthesia/Blood Transfusion Reactions: No Reported Reaction Past Psychological History: Anxiety, Depression Smoking Status: Former smoker Past Alcohol Use History: None Reported Past Drug Use History: None Reported - Past Family History Father Family Medical History: Cancer Additional Family Medical History / Comment(s): Father of bone cancer Mother Family Medical History: CVA/TIA Additional Family Medical History / Comment(s): Mother is 78yrs old and has had several strokes. Medications and Allergies Home Medications Medication Instructions Recorded Confirmed Type No Known Home Medications 05/05/24 05/05/24 History Allergies Allergy/AdvReac Type Severity Reaction Status Date / Time codeine Allergy Rash/Hives Verified 05/05/24 19:56 amoxicillin AdvReac Nausea Verified 05/05/24 19:56 azithromycin [From Zithromax] AdvReac Nausea Verified 05/05/24 19:56 divalproex sodium AdvReac Chest Pain Verified 05/05/24 19:56 [From Depakote] Penicillins AdvReac Nausea Verified 05/05/24 19:56 Physical Exam Vitals: Vital Signs Temp Pulse Resp BP Pulse Ox 05/08/24 12:15 97.4 F L 83 14 108/72 97 05/08/24 08:14 98 F 70 16 109/69 91 L 05/08/24 03:30 93 14 95/63 96 05/08/24 00:56 73 14 05/07/24 23:22 97.7 F 73 14 106/54 97 05/07/24 20:00 97.5 F L 86 14 107/62 96 05/07/24 15:45 97.8 F 71 14 99/65 Intake and Output 05/07/24 05/08/24 05/08/24 22:59 06:59 14:59 Intake Total 250 Balance 250 Intake: Oral 250 Other: Voiding Method Toilet Toilet # Voids 0 0 Results 05/07/24 06:14 05/07/24 06:14 Current Medications Generic Name Dose Route Start Last Admin Trade Name Freq PRN Reason Stop Dose Admin Aspirin 81 mg 05/06/24 09:30 05/08/24 12:20 Aspirin 81 Mg PO 81 mg DAILY KADEN Administration Atorvastatin Calcium 40 mg 05/06/24 09:30 05/08/24 12:19 Atorvastatin 40 Mg Tab PO 40 mg DAILY KADEN Administration Dapagliflozin 10 mg 05/08/24 11:00 05/08/24 12:19 Dapagliflozin Propanediol 10 Mg Tablet PO 10 mg DAILY KADEN Administration Heparin Sodium (Porcine) 5,000 unit 05/06/24 16:00 05/08/24 12:18 Heparin Sodium,Porcine 5,000 Unit/Ml 1 Ml Vial SQ Not Given Q8HR KADEN Lorazepam 1 mg 05/07/24 16:51 Lorazepam 1 Mg Tab PO Q8HR PRN Agitation or Acute Anxiety Metoprolol Succinate 12.5 mg 05/08/24 11:00 05/08/24 12:19 Metoprolol Succinate (Er) 25 Mg Tab.Er.24h PO 12.5 mg DAILY KADEN Administration Nicotine 1 patch 05/06/24 16:00 05/08/24 11:18 Nicotine 21mg/24hr Patch TRANSDERM Not Given DAILY KADEN Intake and Output 05/07/24 05/08/24 05/08/24 22:59 06:59 14:59 Intake Total 250 Balance 250 Intake: Oral 250 Other: Voiding Method Toilet Toilet # Voids 0 0 05/07/24 06:14 05/07/24 06:14
--- NOTE | 2024-05-08 15:00 | P.PN ---
Subjective Progress Note Date: 05/08/24 Hospital course: Patient is a very pleasant 64-year-old male with a past medical history of CAD status post stenting, ischemic cardiomyopathy with previously known EF of 25- 30%, recent CVA, COPD and continued nicotine dependence, and GERD. Patient presented to the emergency department on 05/05/2024 secondary to worsening altered mental status. Per patient and family at bedside, patient recently suffered ischemic stroke of right MCA and NSTEMI and underwent nearly 2-week ICU admission at [facility] in [place] prior to signing out AMA and has not been taking any of his medications since. Patient's daughter at bedside reports he has had increased periods of confusion and altered mentation so they brought him to the emergency department for evaluation. Upon arrival to our facility, patient underwent evaluation in the emergency department. Vital signs upon arrival show blood pressure 116/76, heart rate 90, respiratory rate 16, temp 98.4 F, and SpO2 of 96% on room air. EKG completed showing normal sinus rhythm at 86 bpm with nonspecific T wave abnormalities. CT head and cervical spine were completed. CT head showing evidence of prior right temporal/parietal lobe CVA, mild multilevel degenerative disc disease, but negative for acute process or evidence of fracture of cervical spine. Laboratory evaluation from earlier presentation revealed lactic acid 2.2, troponin 0.026, glucose 112, and BUN 21 with creatinine 0.97. Patient admitted under our services with consultation to neurology and cardiology. Transfer records from [facility] received and reviewed, reporting patient with acute nonhemorrhagic infarct involving the right temporal lobe, posterior aspect of right insula, and a small portion of the right frontal lobe with developing cytotoxic edema with mild mass effect upon the right lateral ventricle and trace right to left midline shift. CT angio reported no carotid stenosis. Echocardiogram completed at their facility reported EF of 25 to 30% with severe global hypokinesis, moderate mitral regurgitation and mild tricuspid regurgitation. Physical exam: Patient seen and fully evaluated at bedside this morning. Patient resting at this time and appears comfortable. Denies any complaints or needs. Vital signs reviewed and stable. General: Nontoxic, no distress and appears stated age. Derm: Skin warm and dry, normal coloration for ethnicity. Head: Atraumatic, normocephalic and symmetric. Eyes: EOM's intact, no lid lag, and anicteric sclera Mouth: no lip lesions, mucus membranes moist Cardiovascular: regular rate and rhythm with normal S1S2, systolic murmur, positive posterior tibial pulses bilaterally, and cap refill < 2 seconds. Lungs: Respirations even, regular, and unlabored on room air. Lungs CTA bilaterally, no rhonchi, no rales, no wheezing, and no accessory muscle usage. Abdominal: soft, nontender to palpation, no guarding, no appreciable organomegaly Ext: ROM intact. No gross muscle atrophy, no edema, no contractures Neuro: Speech clear, face symmetrical and CN II-XII grossly intact with no noted focal neuro deficits Psych: Alert and oriented to person, place, time, and situation. Appropriate and pleasant affect. Assessment and Plan of Care: Altered mental status, now resolved Recent ischemic CVA History of CAD status post stenting Nonischemic cardiomyopathy with EF of 25 to 30% COPD, not in acute exacerbation Nicotine dependence, family reported nicotine use patient currently denies Lactic acidosis, resolved -Neurology following and discussed case and plan of care in detail with Dr. Don and he is recommending MARLIN. -Cardiology following and discussed plan of care with cardiology MANAGER OFFICE SERVICES stating he will be making some medication changes including starting patient on Farxiga 10 mg daily and metoprolol 12.5 mg daily with plans to add on Aldactone tomorrow morning if blood pressures remain stable. -Continue neurochecks every 4 hours -Fall precautions -Telemetry monitoring. -Patient reports that he was started on Eliquis at previous facility pending completion of further testing as they were concerned for stroke to be of embolic in nature. Patient left [facility] and has not been on any anticoagulant since leaving that facility, discussed with cardiology in agreement on holding off with Eliquis at this time. -Continue aspirin 81 mg daily, atorvastatin 40 mg daily, metoprolol 12.5 mg daily, and Farxiga 10 mg daily. -DVT prophylaxis with heparin 5000 units every 8 hours. -Physical and Occupational Therapy consulted -Recommend smoking cessation and order placed for nicotine patch 21 mg daily. Data and imaging reviewed Labs reviewed. CBC showing mild normocytic anemia with hemoglobin of 12.5. BMP unremarkable. Blood glucose 97. Magnesium 2.0. Liver profile showing slightly elevated ALT 52. Vital signs reviewed. Blood pressure 109/69, heart rate 70, respiratory rate 16, temp 98.0 F, and SpO2 of 91% on room air. CODE STATUS: Full code DVT prophylaxis: Heparin Anticipated discharge date: Pending clinical course Anticipated discharge place: Home Patient was seen independently by Nurse Pracitioner. This document was prepared using [employer] dictation software. Please allow for errors in liquified natural gas technician, while rare they do occur. Abhay Oates NP rendered care for this patient independently, reviewed the findings and plan as documented in the note above and agree with plan. I did not physically speak with or examine the patient on this date. Objective - Vital Signs Vital signs: Vital Signs Temp 98 F 05/08/24 08:14 Pulse 70 05/08/24 08:14 Resp 16 05/08/24 08:14 BP 109/69 05/08/24 08:14 Pulse Ox 91 L 05/08/24 08:14 FiO2 Intake & Output 05/07/24 05/08/24 05/08/24 18:59 06:59 18:59 Intake Total 350 Balance 350 Intake: Oral 350 Other: Voiding Method Toilet Toilet # Voids 1 0 - Labs CBC & Chem 7: 05/07/24 06:14 05/07/24 06:14
--- NOTE | 2024-05-08 16:54 | P.PN ---
Subjective Progress Note Date: 05/08/24 I am following-up with patient and per the nurse refusing to cooperate and patient is complaining about the quality of the food. He is notifying nursing staff he wants to go Again Medical Advice (AMA). Per nurse he is oriented X3 and no confusion episodes. Objective - Vital Signs Vital signs: Vital Signs Temp 97.6 F 05/08/24 15:17 Pulse 63 05/08/24 15:17 Resp 14 05/08/24 15:17 BP 108/67 05/08/24 15:17 Pulse Ox 95 05/08/24 15:17 FiO2 Intake & Output 05/07/24 05/08/24 05/08/24 18:59 06:59 18:59 Intake Total 350 Balance 350 Intake: Oral 350 Other: Voiding Method Toilet Toilet # Voids 1 0 - Exam General: Lying on side of bed and is not in acute distress. Neuro: Limited because of cooperation. Left lower facial weakness. No dysathria. Some of the workup during this hospital visit consisted of: Lipid panel is triglyceride 74, cholesterol is 125, LDL 71 and HDL is 38 Vitamin B12 is 858 TSH is 1.260 Ammonia level is 24 [address] of the head is reported as evidence of prior right temporal parietal lobe CVA. Correlate with prior imaging at outside institution. Reviewed the CT and agree there is no acute or subacute stroke but patient does have an old right MCA stroke. CT cervical spine is reported as no evidence of cervical spine fracture. SOME OF THE WORK-UP AT OUTSIDE HOSPITAL: NIH stroke scale was 4 at outside hospital. Patient had facial droop on the left had a drift of the left upper extremity as well as left lower extremity. No IV thrombolytics since unknown last normal. Patient had intermittent episode of confusion on examination CT of the head showed right MCA distribution stroke. CT angiography of the head and neck appears occlusion superior branch of the right M2. CT angiography of the neck did not show any carotid stenosis. MRI Brain: has acute nonhemorrhagic infarct involving the right temporal lobe, posterior aspect right insular and small portion of the right frontal with developing cytotoxic edema with mild mass effect upon the right lateral ventricle and trace right to left midline shift. Was felt the patient had NSTEMI at the outside hospital. 2D echo is reported as 25 to 30% systolic function. Severe hypokinesis of the ventricle. Diastolic function and. Grade 3. Moderate mitral regurgitation. During the hospital visit the patient was very combative and was given Ativan Haldol Benadryl. Patient was started on Depakote for his agitation as well as Seroquel. They did perform an EEG Seems that he was started on Eliquis for concern of cardioembolic stroke. There is no mention of A-fib. - Labs CBC & Chem 7: 05/07/24 06:14 05/07/24 06:14 Assessment and Plan Assessment: This is a 64-year-old gentleman who had a recent stroke about 2 weeks ago and while he was hospitalized while working in [facility] and had extensive workup and found to have right MCA stroke/M2 blockage per the daughter and was placed on Eliquis since at the outside hospital was felt it was cardiac in origin. No A-fib or flutter per family members. Patient left AMA at the outside hospital he presented to our facility because of "feeling weird". Altered mental status with agitation likely due to his recent stroke. Currently patient is oriented x 3. And some component of metabolic encaphlopathy. Per family members he had 6-hour prolonged EEG at outside facility and no seizure. He had multiple threaten episodes to leave AMA and eventually left AMA at the outside hospital and during this hospital visit he continues to have similar behavioral. Recent right MCA stroke and on examinatio has left facial droop and I felt he was ataxic and per family members he is weak on the left side. Patient had extensive workup at outside hospital in [facility]. At hospital he had NIH stroke scale of a 4 with facial droop left upper and lower extremity drift. No IV thrombolytic since unknown last normal. CT angiography appears occlusion superior branch of the right M2 at outside hospital History of Systolic heart failure (EF 25%) Hypertension Plan: Patient was placed on aspirin 81 mg and Lipitor 40 mg daily by the primary team. He was recently placed on Eliquis at outside facility since was suspected was cardioembolic in origin but patient did not have any A-fib or flutter per family members. Cardiology is consulted Recommend transesophageal echocardiogram and 30-day event monitor During this hospital stay as stated earlier he is on aspirin and will defer the use of anticoagulation to the cardiology team but if not then recommend dual antiplatelet of aspirin and Plavix 75 mg daily. Did not receive the EEG record Recommend cardiology consultation Continue neurochecks Cardiac monitoring PT OT and PATIENT ADMITTING CLERK are consulted Plan Seroquel 25 mg nightly for his agitation and can go up to 25 mg twice daily per Will defer the rest of the medical management to primary and other specialist For DVT prophylaxis On subcu heparin 5000 every 12 hours. The plan discussed with the patient, nurse as well as the primary team nurse practitioner. Dr. Clark will resume neurology service tomorrow A.M. ADDENDUM: Per the nurse the showed record on her phone that patient had an EEG and an per the nurse there is no seizure but had some abnormality relating due to right temporal. Time with Patient: Less than 30
[2024-05-08 19:11] LABS: Glucose,Whole Blood 103 mg/dL (70-110)
[2024-05-09 08:14] LABS: HCT 38.8 % (39.0-53.0); HGB 12.6 gm/dL (13.0-17.5); MCH 30.2 pg (25.0-35.0); MCHC 32.4 g/dL (31.0-37.0); MCV 93.1 fL (80.0-100.0); Mean Platelet Volume 7.8; Platelet Count 197 k/uL (150-450); RBC 4.17 m/uL (4.30-5.90); RDW 12.1 % (11.5-15.5); WBC 5.6 k/uL (3.8-10.6)
[2024-05-09 08:30] LABS: ALT 40 U/L (4-49); AST 33 U/L (17-59); African American GFR (CKD) >90 (>60 ml/min/1.73 sqM); Albumin 3.6 g/dL (3.5-5.0); Alkaline Phosphatase 100 U/L (38-126); Anion Gap 10 mmol/L; Blood Urea Nitrogen 17 mg/dL (9-20); Calcium 8.8 mg/dL (8.4-10.2); Carbon Dioxide 25 mmol/L (22-30); Chloride 105 mmol/L (98-107); Glucose 127 mg/dL (74-99); Non-African American GFR(CKD) >90 (>60 ml/min/1.73 sqM); Potassium 3.9 mmol/L (3.5-5.1); Sodium 140 mmol/L (137-145); Total Bilirubin 0.4 mg/dL (0.2-1.3); Total Protein 6.2 g/dL (6.3-8.2)
--- NOTE | 2024-05-09 14:08 | P.PN ---
Subjective Progress Note Date: 05/09/24 Hospital course: Patient is a very pleasant 64-year-old male with a past medical history of CAD status post stenting, ischemic cardiomyopathy with previously known EF of 25- 30%, recent CVA, COPD and continued nicotine dependence, and GERD. Patient presented to the emergency department on 05/05/2024 secondary to worsening altered mental status. Per patient and family at bedside, patient recently suffered ischemic stroke of right MCA and NSTEMI and underwent nearly 2-week ICU admission at [facility] in [place] prior to signing out AMA and has not been taking any of his medications since. Patient's daughter at bedside reports he has had increased periods of confusion and altered mentation so they brought him to the emergency department for evaluation. Upon arrival to our facility, patient underwent evaluation in the emergency department. Vital signs upon arrival show blood pressure 116/76, heart rate 90, respiratory rate 16, temp 98.4 F, and SpO2 of 96% on room air. EKG completed showing normal sinus rhythm at 86 bpm with nonspecific T wave abnormalities. CT head and cervical spine were completed. CT head showing evidence of prior right temporal/parietal lobe CVA, mild multilevel degenerative disc disease, but negative for acute process or evidence of fracture of cervical spine. Laboratory evaluation from earlier presentation revealed lactic acid 2.2, troponin 0.026, glucose 112, and BUN 21 with creatinine 0.97. Patient admitted under our services with consultation to neurology and cardiology. Transfer records from [facility] received and reviewed, reporting patient with acute nonhemorrhagic infarct involving the right temporal lobe, posterior aspect of right insula, and a small portion of the right frontal lobe with developing cytotoxic edema with mild mass effect upon the right lateral ventricle and trace right to left midline shift. CT angio reported no carotid stenosis. Echocardiogram completed at their facility reported EF of 25 to 30% with severe global hypokinesis, moderate mitral regurgitation and mild tricuspid regurgitation. Physical exam: Patient seen and fully evaluated at bedside this morning. Daughter at bedside. Patient resting at this time and appears comfortable. Denies any complaints or needs. Vital signs reviewed and stable. General: Nontoxic, no distress and appears stated age. Derm: Skin warm and dry, normal coloration for ethnicity. Head: Atraumatic, normocephalic and symmetric. Eyes: EOM's intact, no lid lag, and anicteric sclera Mouth: no lip lesions, mucus membranes moist Cardiovascular: regular rate and rhythm with normal S1S2, systolic murmur, positive posterior tibial pulses bilaterally, and cap refill < 2 seconds. Lungs: Respirations even, regular, and unlabored on room air. Lungs CTA bilaterally, no rhonchi, no rales, no wheezing, and no accessory muscle usage. Abdominal: soft, nontender to palpation, no guarding, no appreciable organomegaly Ext: ROM intact. No gross muscle atrophy, no edema, no contractures Neuro: Speech clear, face symmetrical and CN II-XII grossly intact with no noted focal neuro deficits Psych: Alert and oriented to person, place, time, and situation. Appropriate and pleasant affect. Assessment and Plan of Care: Altered mental status, now resolved Recent ischemic CVA History of CAD status post stenting Nonischemic cardiomyopathy with EF of 25 to 30% COPD, not in acute exacerbation Nicotine dependence, family reported nicotine use patient currently denies Lactic acidosis, resolved -Neurology following and recommended MARLIN. -Cardiology following and discussed plan of care with cardiology POWER PLANT OPERATIONS MANAGER stating patient is cleared from cardiac perspective recommending outpatient follow-up for further discussion of AICD and discharged home with event monitor.. -Continue neurochecks every 4 hours -Fall precautions -Telemetry monitoring. -Patient reports that he was started on Eliquis at previous facility pending completion of further testing as they were concerned for stroke to be of embolic in nature. Patient left [facility] and has not been on any anticoagulant since leaving that facility, discussed with cardiology in agreement on holding off with Eliquis at this time. -Continue aspirin 81 mg daily, atorvastatin 40 mg daily, metoprolol 12.5 mg daily, and Farxiga 10 mg daily. -DVT prophylaxis with heparin 5000 units every 8 hours. -Physical and Occupational Therapy consulted -Recommend smoking cessation and order placed for nicotine patch 21 mg daily. Data and imaging reviewed Labs reviewed. CBC showing mild normocytic anemia with hemoglobin of 12.6. BMP unremarkable. Blood glucose 127. Magnesium 2.0. Liver profile unremarkable.. Vital signs reviewed. Blood pressure 124/74, heart rate 89, respiratory rate 16, temp 98.1 F, and SpO2 of 97% on room air. CODE STATUS: Full code DVT prophylaxis: Heparin Anticipated discharge date: Discharge is pending placement of event monitor and clearance from neurology. Anticipated discharge place: Home Patient was seen independently by Nurse Pracitioner. This document was prepared using [employer] dictation software. Please allow for errors in venetian blind washer, while rare they do occur. Abhay Oates NP rendered care for this patient independently, reviewed the findings and plan as documented in the note above and agree with plan. I did not physically speak with or examine the patient on this date. Objective - Vital Signs Vital signs: Vital Signs Temp 98.1 F 05/09/24 08:00 Pulse 75 05/09/24 08:00 Resp 18 05/09/24 08:00 BP 124/74 05/09/24 04:43 Pulse Ox 98 05/09/24 08:00 FiO2 Intake & Output 05/08/24 05/09/24 05/09/24 18:59 06:59 18:59 Intake Total 180 Balance 180 Weight 74.6 kg Intake: Oral 180 Other: Voiding Method Toilet Toilet # Voids 2 1 - Labs CBC & Chem 7: 05/09/24 07:38 05/09/24 07:38 Labs: Abnormal Lab Results - Last 24 Hours (Table) 05/09/24 05/09/24 Range/Units 07:38 07:38 RBC 4.17 L (4.30-5.90) m/uL Hgb 12.6 L (13.0-17.5) gm/dL Hct 38.8 L (39.0-53.0) % Glucose 127 H (74-99) mg/dL Total Protein 6.2 L (6.3-8.2) g/dL
--- NOTE | 2024-05-09 14:22 | P.PN ---
Subjective HISTORY OF PRESENT ILLNESS: This is a 64-year-old male with a past medical history significant for ADHD, cardiomyopathy, normal coronary arteries, previous drug and alcohol use, and recent CVA. Patient follows in the office with Dr. Arana. However he established as a new patient in December 2022 and has not been seen since. We have been asked to see the patient in consultation for recent CVA and cardiomyopathy. Patient examined at the bedside. Patient is sleeping at the time of examination. According to the patient's nurse, patient has been noncompliant since coming to the hospital and refusing to wear telemetry or to take his medications. Patient also becoming agitated and belligerent at times towards the staff. His family is at the bedside and providing the majority of the HPI. They state that the patient works in [place] from Thursday through Thursday and then resides here on the weekends. He was recently down in [place] when he began to feel short of breath and called 911. Apparently he had a facial droop that was noted by EMS as well. He was diagnosed with right MCA ischemic stroke. Patient was also found to have elevated troponins at that time. Patient ended up leaving the hospital AGAINST MEDICAL ADVICE and has not been taking any of his medications since. Patient's family states that he has been having altered me ntal status at home and not acting like himself. DIAGNOSTICS: - EKG reveals sinus mechanism with no signs of acute ischemia - Laboratory data: WBC 6.1. Hemoglobin 12.5. Platelet count 223. Sodium 138. Potassium 4.1. BUN 18. Creatinine 0.94. TSH 1.260. - Current home cardiac medications include none - Most recent echocardiogram obtained at this facility was completed in April 2021 revealing ejection fraction 30 to 35%, moderate global hypokinesis of LV, mild MR, mild TR - Patient did have an echocardiogram performed at his recent hospitalization in [place] revealing EF 25 to 30% with severe global hypokinesis, moderate MR and mild TR - Cardiac catheterization history: April 2021 revealing normal coronary arteries 05/09/2024 Patient examined this morning. Patient is sitting up in the chair. No family present at the time of examination. Patient currently denies chest pain or pr essure. He denies shortness of breath. Vital signs are stable. PHYSICAL EXAM: VITAL SIGNS: Reviewed. GENERAL: Well-developed in no acute distress. HEENT: Head is normocephalic. Pupils are equal, round. Sclerae anicteric. Mucous membranes of the mouth are moist. Neck supple. No JVD or thyromegaly LUNGS: Respirations even and unlabored. Lungs essentially clear to auscultation bilaterally. HEART: Regular rate and rhythm. S1 and S2 heard. EXTREMITIES: Normal range of motion. No clubbing or cyanosis. Peripheral pulses intact. No lower extremity edema ASSESSMENT: Altered mental status Recent ischemic CVA of right MCA territory Recent non-STEMI, likely type II SD Known nonischemic cardiomyopathy, 20 to 25% Normal coronary arteries, per cath in 04/2021, no history of CAD or prior stenting History of previous drug and alcohol use History of ADHD History of medication noncompliance PLAN: No need to obtain echo as this was performed recently in [place] Continue aspirin, lipitor, Farxiga, and metoprolol succinate Will consider addition of Aldactone and KEVIN/ARB on an outpatient basis Continue telemetry monitoring to assess for any arrhythmias Medication compliance reinforced Recommend eventual outpatient ICD implantation 30-day event monitor to be placed today Patient is stable for discharge home today from a cardiac standpoint Patient to follow-up postdischarge with Dr. Arana Nurse practitioner note has been reviewed by physician. Signing provider agrees with the documented findings, assessment, and plan of care documented by ARCADE GAME TECHNICIAN as a scribe. Objective - Vital Signs Vital signs: Vital Signs Temp 98.1 F 05/09/24 08:00 Pulse 75 05/09/24 08:00 Resp 18 05/09/24 08:00 BP 124/74 05/09/24 04:43 Pulse Ox 98 05/09/24 08:00 FiO2 Intake & Output 05/08/24 05/09/24 05/09/24 18:59 06:59 18:59 Intake Total 180 180 Balance 180 180 Weight 74.6 kg Intake: Oral 180 180 Other: Voiding Method Toilet Toilet # Voids 2 1 - Labs CBC & Chem 7: 05/09/24 07:38 05/09/24 07:38 Labs: Abnormal Lab Results - Last 24 Hours (Table) 05/09/24 05/09/24 Range/Units 07:38 07:38 RBC 4.17 L (4.30-5.90) m/uL Hgb 12.6 L (13.0-17.5) gm/dL Hct 38.8 L (39.0-53.0) % Glucose 127 H (74-99) mg/dL Total Protein 6.2 L (6.3-8.2) g/dL
[2024-05-09] MEDS: CLOPIDOGREL 75 MG TAB PO SCH (17:45)
[2024-05-09 23:24] LABS: Glucose,Whole Blood 171 mg/dL (70-110)
[2024-05-10 09:01] VITALS: RESP 16; TEMP 97.3
--- NOTE | 2024-05-10 10:13 | P.PN ---
Subjective Progress Note Date: 05/09/24 Patient was initially seen by Dr. Tariq Don. Please refer to his note for details. Patient is a 64-year-old male with recent MCA CVA at outside hospital and left AMA. He presented because of confusion. He was placed on Eliquis at outside hospital for concern for cardioembolic event. Patient had prolonged EEG performed for 18 hours EEG at outside hospital on 04/23/2024 starting at 5 PM it was continued till 11:20 AM on 04/24/2024. Study interrupted between 6:29 PM to 9:30 PM because patient pulled most of the leads. During this video EEG, no events were recorded. No electrographic seizure was recorded. Digital seizure/event analysis and detection did not reveal any additional seizures or additional foci. Overall study revealed mild background theta slowing, right temporal focal delta slowing and attenuation of fast frequencies. No events or epileptiform abnormalities were recorded. EEG background findings are suggestive of mild encephalopathy but are nonspecific as to the etiology. Focal slowing is suggestive of a structural abnormality in the right temporal region, but is nonspecific as to etiology.. Some of the workup during this hospital visit consisted of: Lipid panel is triglyceride 74, cholesterol is 125, LDL 71 and HDL is 38 Vitamin B12 is 858 TSH is 1.260 Ammonia level is [address] of the head is reported as evidence of prior right temporal parietal lobe CVA. Correlate with prior imaging at outside institution. Reviewed the CT and agree there is no acute or subacute stroke but patient does have an old right MCA stroke. CT cervical spine is reported as no evidence of cervical spine fracture. SOME OF THE WORK-UP AT OUTSIDE HOSPITAL: NIH stroke scale was 4 at outside hospital. Patient had facial droop on the left had a drift of the left upper extremity as well as left lower extremity. No IV thrombolytics since unknown last normal. Patient had intermittent episode of confusion on examination CT of the head showed right MCA distribution stroke. CT angiography of the head and neck appears occlusion superior branch of the right M2. CT angiography of the neck did not show any carotid stenosis. MRI Brain: has acute nonhemorrhagic infarct involving the right temporal lobe, posterior aspect right insular and small portion of the right frontal with developing cytotoxic edema with mild mass effect upon the right lateral ventricle and trace right to left midline shift. Was felt the patient had NSTEMI at the outside hospital. 2D echo is reported as 25 to 30% systolic function. Severe hypokinesis of the ventricle. Diastolic function and. Grade 3. Moderate mitral regurgitation. During the hospital visit the patient was very combative and was given Ativan Haldol Benadryl. Patient was started on Depakote for his agitation as well as Seroquel. They did perform an EEG Seems that he was started on Eliquis for concern of cardioembolic stroke. There is no mention of A-fib. Objective - Vital Signs Vital signs: Vital Signs Temp 98.1 F 05/09/24 08:00 Pulse 75 05/09/24 08:00 Resp 18 05/09/24 08:00 BP 124/74 05/09/24 04:43 Pulse Ox 98 05/09/24 08:00 FiO2 Intake & Output 05/08/24 05/09/24 05/09/24 18:59 06:59 18:59 Intake Total 180 180 Balance 180 180 Weight 74.6 kg Intake: Oral 180 180 Other: Voiding Method Toilet Toilet # Voids 2 1 - Exam Patient is alert and awake in no distress. Patient appears somewhat restless. Patient's speech and language functions are normal. Cranial nerves significant for left homonymous visual field disturbance, with left lower quadrant visual field deficit and left upper quadrant only neglect on double simultaneous stimulation. Patient has left facial droop. Tongue protrudes in midline. On muscle strength testing, patient has left pronator drift about 30 degree. The strength is normal in the upper limbs. In the lower limbs hip flexion is 5 on the right, 5-left, with normal ankle dorsiflexion. Sensory examination reveals patient makes his right left side. He feels only 1 side at a time. - Labs CBC & Chem 7: 05/09/24 07:38 05/09/24 07:38 Labs: Abnormal Lab Results - Last 24 Hours (Table) 05/09/24 05/09/24 Range/Units 07:38 07:38 RBC 4.17 L (4.30-5.90) m/uL Hgb 12.6 L (13.0-17.5) gm/dL Hct 38.8 L (39.0-53.0) % Glucose 127 H (74-99) mg/dL Total Protein 6.2 L (6.3-8.2) g/dL Assessment and Plan Assessment: This is a 64-year-old gentleman who had a recent stroke about 2 weeks ago and while he was hospitalized while working in [facility] and had extensive workup and found to have right MCA stroke/M2 blockage per the daughter and was placed on Eliquis since at the outside hospital was felt it was cardiac in orig in. No A-fib or flutter per family members. Patient left AMA at the outside hospital he presented to our facility because of "feeling weird". Altered mental status with agitation likely due to his recent stroke. Currently patient is oriented x 3. And some component of metabolic encaphlopathy. Per family members he had 6-hour prolonged EEG at outside facility and no seizure. He had multiple threaten episodes to leave AMA and eventually left AMA at the outside hospital and during this hospital visit he continues to have similar behavioral. Recent right MCA stroke and on examinatio has left facial droop and I felt he was ataxic and per family members he is weak on the left side. Patient had extensive workup at outside hospital in [facility]. At hospital he had NIH stroke scale of a 4 with facial droop left upper and lower extremity drift. No IV thrombolytic since unknown last normal. CT angiography appears occlusion superior branch of the right M2 at outside hospital History of Systolic heart failure (EF 25%) Hypertension Plan: Patient has been placed on dual antiplatelet therapy with aspirin 81 mg and Plavix 75 mg. Discussed with cardiology. No indication for Eliquis, as apparently the hospital in [place] started him on Eliquis but no documentation of atrial fibrillation and no thrombus on echo. Cardiology has ordered an event monitor and they will follow-up patient outpatient to look for any atrial fibrillation to warrant Eliquis but not right now. Patient is very noncompliant. Was not taking any of his medications outpatient. He saw Dr. Arana in the office once in 2022 and never came back. EF has been low at least since 2020. Cardiology recommending ICD even back then but he has not been compliant with appointments or medications. Continue Lipitor 40 mg daily. He was recently placed on Eliquis at outside facility since was suspected was cardioembolic in origin but patient did not alegria ve any A-fib or flutter per family members. Dr. Don recommended transesophageal echocardiogram and 30-day event monitor Continue neurochecks Cardiac monitoring PT OT and NURSE LDR are consulted Plan Seroquel 25 mg nightly for his agitation and can go up to 25 mg twice daily per Will defer the rest of the medical management to primary and other specialist For DVT prophylaxis On subcu heparin 5000 every 12 hours. Recommend patient follow-up with neurologist outpatient as well as cardiology. Neurologically clear. Discussed with patient's nurse.
[2024-05-10 11:34] VITALS: BP 102/56; PULSE 72
--- NOTE | 2024-05-10 12:57 | P.DS ---
Providers Date of admission: 05/05/24 21:22 Expected date of discharge: 05/10/24 Attending physician: Esperanza Rodriguez MD Consults: 05/05/24 21:23 Consult Physician Routine Consulting Provider: Tariq Don Consult Reason/Comments: Altered mental status, old CVA Do you want consulting provider notified?: Yes 05/07/24 16:46 Consult Physician Routine Consulting Provider: Edna Sandoval Consult Reason/Comments: Recent CVA &NSTEMI EF 25-30%, concens for embolic in nature, eval for MARLIN Do you want consulting provider notified?: Yes Primary care physician: [facility] Course: Discharge Diagnosis: Altered mental status, now resolved. Patient with intermittent episodes of agitation and frustration, however he does remain alert and oriented x 4 during frustrated/agitated episodes. Patient being discharged home on Seroquel 25 mg nightly to assist with improving agitation. This dose may be titrated upward if needed by PCP upon follow-up appointment. Episodes of agitation/mood swings possibly secondary to recent CVA. This was discussed with patient's daughter. Patient is again alert and oriented to person, place, time, and situation. He is medically optimized and stable for discharge home. Patient to follow-up outpatient with PCP, cardiology, and neurologist. Recent ischemic CVA. Transfer records from [facility] received and reviewed, reporting patient with acute nonhemorrhagic infarct involving the right temporal lobe, posterior aspect of right insula, and a small portion of the right frontal lobe with developing cytotoxic edema with mild mass effect upon the right lateral ventricle and trace right to left midline shift. Patient left [facility] AMA and presented to our facility a few days later. Patient evaluated by neurology and started on dual antiplatelet therapy with aspirin and Plavix in addition to atorvastatin. Neurology clearing patient from their perspective recommending outpatient follow-up with neurologist and recommended starting patient on Seroquel 25 mg nightly to assist with his bouts of agitation. Discharged home on dual antiplatelet therapy with aspirin and Plavix along with atorvastatin 40 mg daily. It was discussed with both patient and family that patient will need to take medication as recommended and follow- up with neurologist. Also strongly advised smoking cessation. History of CAD status post stenting reports a recent NSTEMI during admission at [facility]. Nonischemic cardiomyopathy with EF of 25 to 30%. Echocardiogram completed at [facility] reported EF of 25 to 30% with severe global hypokinesis, moderate mitral regurgitation and mild tricuspid regurgitation. Patient with known nonischemic cardiomyopathy with previous EF of 30 to 35%. He was nakita luated by cardiology during this hospitalization being discharged home on aspirin 81 mg daily, Plavix 75 mg daily, metoprolol 12.5 mg daily, and atorvastatin 40 mg daily. Patient also had event monitor placed prior to discharge. He is to follow-up outpatient with cardiology to further discuss AICD placement. COPD, not in acute exacerbation. Strongly recommend smoking cessation. Nicotine dependence, family reported nicotine use patient currently denies. Lactic acidosis, resolved Hospital course: Patient is a very pleasant 64-year-old male with a past medical history of CAD status post stenting, ischemic cardiomyopathy with previously known EF of 25- 30%, recent CVA, COPD and continued nicotine dependence, and GERD. Patient presented to the emergency department on 05/05/2024 secondary to worsening altered mental status. Per patient and family at bedside, patient recently suffered ischemic stroke of right MCA and NSTEMI and underwent nearly 2-week ICU admission at [facility] in [place] prior to signing out AMA and has not been taking any of his medications since. Patient's daughter at bedside reports he has had increased periods of confusion and altered mentation so they brought him to the emergency department for evaluation. Upon arrival to our facility, patient underwent evaluation in the emergency department. Vital signs upon arrival show blood pressure 116/76, heart rate 90, respiratory rate 16, temp 98.4 F, and SpO2 of 96% on room air. EKG completed showing normal sinus rhythm at 86 bpm with nonspecific T wave abnormalities. CT head and cervical spine were completed. CT head showing evidence of prior right temporal/parietal lobe CVA, mild multilevel degenerative disc disease, but negative for acute process or evidence of fracture of cervical spine. Laboratory evaluation from earlier presentation revealed lactic acid 2.2, troponin 0.026, glucose 112, and BUN 21 with creatinine 0.97. Patient admitted under our services with consultation to neurology and cardiology. Transfer records from [facility] received and reviewed, reporting patient with acute nonhemorrhagic infarct involving the right temporal lobe, posterior aspect of right insula, and a small portion of the right frontal lobe with developing cytotoxic edema with mild mass effect upon the right lateral ventricle and trace right to left midline shift. CT angio reported no carotid stenosis. Echocardiogram completed at their facility reported EF of 25 to 30% with severe global hypokinesis, moderate mitral regurgitation and mild tricuspid regurgitation. Patient with intermittent episodes of agitation and frustration, however he does remain alert and oriented x 4 during frustrated/agitated episodes. Patient being discharged home on Seroquel 25 mg nightly to assist with improving agitation. This dose may be titrated upward if needed by PCP upon follow-up appointment. Episodes of agitation/mood swings possibly secondary to recent CVA. This was discussed with patient's daughter. Patient is again alert and oriented to person, place, time, and situation. He is medically optimized and stable for discharge home. Patient to follow-up outpatient with PCP, cardiology, and neurologist. Patient evaluated by neurology and started on dual antiplatelet therapy with aspirin and Plavix in addition to atorvastatin. Neurology clearing patient from their perspective recommending outpatient follow-up with neurologist and recommended starting patient on Seroquel 25 mg nightly to assist with his bouts of agitation. Discharged home on dual antiplatelet therapy with aspirin and Plavix along with atorvastatin 40 mg daily. It was discussed with both patient and family that patient will need to take medication as recommended and follow-up with neurologist. Also strongly advised smoking cessation. Echocardiogram completed at [facility] reported EF of 25 to 30% with severe global hypokinesis, moderate mitral regurgitation and mild tricuspid regurgitation. Patient with known nonischemic cardiomyopathy with previous EF of 30 to 35%. He was evaluated by cardiology during this hospitalization being discharged home on aspirin 81 mg daily, Plavix 75 mg daily, metoprolol 12.5 mg daily, and atorvastatin 40 mg daily. Patient also had event monitor placed prior to discharge. He is to follow-up outpatient with cardiology to further discuss AICD placement. Event monitor is in place, patient is medically optimized for discharge at this time. Patient strongly encouraged to maintain medication compliance and follow- up with PCP, cardiology, and neurology as recommended. Patient discharged home with home care and per family's request information on [facility]. Physical exam: Vital signs reviewed and stable. General: Nontoxic, no distress and appears stated age. Derm: Skin warm and dry, normal coloration for ethnicity. Head: Atraumatic, normocephalic and symmetric. Eyes: EOM's intact, no lid lag, and anicteric sclera Mouth: no lip lesions, mucus membranes moist Cardiovascular: regular rate and rhythm with normal S1S2, systolic murmur, positive posterior tibial pulses bilaterally, and cap refill < 2 seconds. Lungs: Respirations even, regular, and unlabored on room air. Lungs CTA bilaterally, no rhonchi, no rales, no wheezing, and no accessory muscle usage. Abdominal: soft, nontender to palpation, no guarding, no appreciable organomegal y Ext: ROM intact. No gross muscle atrophy, no edema, no contractures Neuro: Speech clear, face symmetrical and CN II-XII grossly intact with no noted focal neuro deficits Psych: Alert and oriented to person, place, time, and situation. Appropriate and pleasant affect. A total of 39 minutes of time were spent preparing this complex discharge summary. Pt was discharged on 05/10/2024 at 12:42 PM Patient was seen independently by Nurse Practitioner. This document was prepared using [employer] dictation software. Please allow for errors in bowling alley floors installer while rare they do occur. Abhay Oates NP rendered care for this patient independently, reviewed the findings and plan as documented in the note above. I did not physically speak with or examine the patient on this date. Patient Condition at Discharge: Stable Plan - Discharge Summary New Discharge Prescriptions: New Metoprolol Succinate (ER) [Toprol XL] 12.5 mg PO DAILY 30 Days #15 tab Aspirin 81 mg PO DAILY 30 Days #30 tab Dapagliflozin Propanediol [Farxiga] 10 mg PO DAILY 30 Days #30 tab Atorvastatin [Lipitor] 40 mg PO DAILY 30 Days #30 tab Clopidogrel [Plavix] 75 mg PO DAILY 21 Days #21 tab QUEtiapine [SEROquel] 25 mg PO HS 30 Days #30 tab Discharge Medication List Aspirin 81 mg PO DAILY 30 Days #30 tab 05/10/24 [Rx] Atorvastatin [Lipitor] 40 mg PO DAILY 30 Days #30 tab 05/10/24 [Rx] Clopidogrel [Plavix] 75 mg PO DAILY 21 Days #21 tab 05/10/24 [Rx] Dapagliflozin Propanediol [Farxiga] 10 mg PO DAILY 30 Days #30 tab 05/10/24 [Rx] Metoprolol Succinate (ER) [Toprol XL] 12.5 mg PO DAILY 30 Days #15 tab 05/10/24 [Rx] QUEtiapine [SEROquel] 25 mg PO HS 30 Days #30 tab 05/10/24 [Rx] Follow up Appointment(s)/Referral(s): Jarrett Arana DO [STAFF PHYSICIAN] - 1 Week Deny Barrera MD [Primary Care Provider] - 1-2 days Lizz Galvez MD [REFERRING] - 1 Week [facility] Visiting Nurse, [NON-STAFF] - Activity/Diet/Wound Care/Special Instructions: Activity: As tolerated. Take breaks as needed. Diet: Heart healthy and carb consistent diet. Avoid salts, or foods with hidden salts such as canned or boxed foods and frozen dinners. Extra salt makes your heart work harder and traps the fluid in your body for longer. Special Instructions: Take all of your medications as directed and remember to keep all of your doctor's appointments and follow-up as needed. Thank you for allowing us to participate in your care, it was truly a pleasure having you for our patient!!! Discharge/Stand Alone Forms: [facility] Pamphlet, Who Do I Call?, Adult Foster Correction List, Help In The Home Discharge Disposition: HOME SELF-CARE
--- NOTE | 2024-05-10 14:24 | P.PN ---
Subjective HISTORY OF PRESENT ILLNESS: This is a 64-year-old male with a past medical history significant for ADHD, cardiomyopathy, normal coronary arteries, previous drug and alcohol use, and recent CVA. Patient follows in the office with Dr. Arana. However he established as a new patient in December 2022 and has not been seen since. We have been asked to see the patient in consultation for recent CVA and cardiomyopathy. Patient examined at the bedside. Patient is sleeping at the time of examination. According to the patient's nurse, patient has been noncompliant since coming to the hospital and refusing to wear telemetry or to take his medications. Patient also becoming agitated and belligerent at times towards the staff. His family is at the bedside and providing the majority of the HPI. They state that the patient works in [place] from Thursday through Thursday and then resides here on the weekends. He was recently down in [place] when he began to feel short of breath and called 911. Apparently he had a facial droop that was noted by EMS as well. He was diagnosed with right MCA ischemic stroke. Patient was also found to have elevated troponins at that time. Patient ended up leaving the hospital AGAINST MEDICAL ADVICE and has not been taking any of his medications since. Patient's family states that he has been having altered me ntal status at home and not acting like himself. DIAGNOSTICS: - EKG reveals sinus mechanism with no signs of acute ischemia - Laboratory data: WBC 6.1. Hemoglobin 12.5. Platelet count 223. Sodium 138. Potassium 4.1. BUN 18. Creatinine 0.94. TSH 1.260. - Current home cardiac medications include none - Most recent echocardiogram obtained at this facility was completed in April 2021 revealing ejection fraction 30 to 35%, moderate global hypokinesis of LV, mild MR, mild TR - Patient did have an echocardiogram performed at his recent hospitalization in [place] revealing EF 25 to 30% with severe global hypokinesis, moderate MR and mild TR - Cardiac catheterization history: April 2021 revealing normal coronary arteries 05/09/2024 Patient examined this morning. Patient is sitting up in the chair. No family present at the time of examination. Patient currently denies chest pain or pr essure. He denies shortness of breath. Vital signs are stable. 05/10/2024 Patient examined this morning at bedside. Patient denies any chest pain or pressure. Denies any shortness of breath. Vital signs are stable. PHYSICAL EXAM: VITAL SIGNS: Reviewed. GENERAL: Well-developed in no acute distress. HEENT: Head is normocephalic. Pupils are equal, round. Sclerae anicteric. Mucous membranes of the mouth are moist. Neck supple. No JVD or thyromegaly LUNGS: Respirations even and unlabored. Lungs essentially clear to auscultation bilaterally. HEART: Regular rate and rhythm. S1 and S2 heard. EXTREMITIES: Normal range of motion. No clubbing or cyanosis. Peripheral pulses intact. No lower extremity edema ASSESSMENT: Altered mental status Recent ischemic CVA of right MCA territory Recent non-STEMI, likely type II GA Known nonischemic cardiomyopathy, 20 to 25% Normal coronary arteries, per cath in 04/2021, no history of CAD or prior stenting History of previous drug and alcohol use History of ADHD History of medication noncompliance PLAN: No need to obtain echo as this was performed recently in [place] Continue aspirin, lipitor, Farxiga, and metoprolol succinate Will consider addition of Aldactone and KEVIN/ARB on an outpatient basis Continue telemetry monitoring to assess for any arrhythmias Medication compliance reinforced Recommend eventual outpatient ICD implantation 30-day event monitor to be placed today Patient is stable for discharge home today from a cardiac standpoint Patient to follow-up postdischarge with Dr. Arana Nurse practitioner note has been reviewed by physician. Signing provider agrees with the documented findings, assessment, and plan of care documented by HAND DEVELOPER as a scribe. Objective - Vital Signs Vital signs: Vital Signs Temp 97.3 F L 05/10/24 09:00 Pulse 84 05/10/24 09:00 Resp 16 05/10/24 09:00 BP 96/55 05/10/24 09:00 Pulse Ox 95 05/10/24 09:00 FiO2 Intake & Output 05/09/24 05/10/24 05/10/24 18:59 06:59 18:59 Intake Total 330 Balance 330 Weight 75.9 kg Intake: Oral 330 Other: Voiding Method Toilet # Voids 1 - Labs CBC & Chem 7: 05/09/24 07:38 05/09/24 07:38 Labs: Abnormal Lab Results - Last 24 Hours (Table) 05/09/24 Range/Units 23:22 POC Glucose (mg/dL) 171 H (70-110) mg/dL
== END 2024-05-10 13:26 | disposition home or self-care (01) ==
LOC: EC 18:29 → 3SCARD 21:22 → INTOOBSV 21:22 → 3SCARD 21:53
PROVIDERS: ADMIT Internal Medicine; ATTEND Internal Medicine
DX: R41.82 Altered mental status, unspecified (principal); K21.9 Gastro-esophageal reflux disease without esophagitis; J44.89 Other specified chronic obstructive pulmonary disease; E87.20 Acidosis, unspecified; I11.0 Hypertensive heart disease with heart failure; I50.22 Chronic systolic (congestive) heart failure; F32.A Depression, unspecified; F41.9 Anxiety disorder, unspecified; F90.9 Attention-deficit hyperactivity disorder, unspecified type; I42.8 Other cardiomyopathies; I25.2 Old myocardial infarction; I25.10 Atherosclerotic heart disease of native coronary artery without angina pectoris; I25.5 Ischemic cardiomyopathy; I69.354 Hemiplegia and hemiparesis following cerebral infarction affecting left non-dominant side; Z86.16 Personal history of COVID-19; Z87.891 Personal history of nicotine dependence; Z91.148 Patient's other noncompliance with medication regimen for other reason; Z95.5 Presence of coronary angioplasty implant and graft; Z79.82 Long term (current) use of aspirin; Z79.84 Long term (current) use of oral hypoglycemic drugs; Z79.899 Other long term (current) drug therapy; Z88.0 Allergy status to penicillin; Z88.1 Allergy status to other antibiotic agents; Z88.5 Allergy status to narcotic agent
CPT/HCPCS: 96372 ×5; 96374; 99285; 93270; 80061; 80053 ×3; 84443; 82607; 82140; 83735 ×3; 85027 ×3; 73130; 72125; 70450; G0378 ×6; J2060; J1644 ×5

== ENCOUNTER 2024-06-20 20:18 | Observation (INO) | payer OTHER ==
[2024-06-20 20:59] LABS: Basophils % (A) 1 %; Eosinophils # (A) 0.2 k/uL (0-0.7); Eosinophils % (A) 3 %; HCT 42.9 % (39.0-53.0); HGB 14.1 gm/dL (13.0-17.5); Lymphocytes % (A) 34 %; MCH 30.5 pg (25.0-35.0); MCHC 32.7 g/dL (31.0-37.0); MCV 93.1 fL (80.0-100.0); Mean Platelet Volume 7.5; Monocytes # (A) 0.5 k/uL (0-1.0); Monocytes % (A) 9 %; Neutrophils # (A) 2.9 k/uL (1.3-7.7); Neutrophils % (A) 51 %; Platelet Count 227 k/uL (150-450); RBC 4.61 m/uL (4.30-5.90); RDW 13.1 % (11.5-15.5); WBC 5.8 k/uL (3.8-10.6)
[2024-06-20 21:09] LABS: ALT 38 U/L (4-49); AST 27 U/L (17-59); African American GFR (CKD) >90 (>60 ml/min/1.73 sqM); Alkaline Phosphatase 90 U/L (38-126); Anion Gap 9 mmol/L; Blood Urea Nitrogen 19 mg/dL (9-20); Calcium 8.8 mg/dL (8.4-10.2); Carbon Dioxide 26 mmol/L (22-30); Chloride 103 mmol/L (98-107); Creatine Kinase 44 U/L (55-170); Glucose 84 mg/dL (74-99); Non-African American GFR(CKD) 89 (>60 ml/min/1.73 sqM); Potassium 4.5 mmol/L (3.5-5.1); Sodium 138 mmol/L (137-145); Total Bilirubin 0.8 mg/dL (0.2-1.3); Total Protein 6.9 g/dL (6.3-8.2)
--- NOTE | 2024-06-20 21:13 | CT ---
EXAMINATION TYPE: CT brain wo con DATE OF EXAM: 06/20/2024 9:07 PM COMPARISON: None. CLINICAL INDICATION: Male, 64 years old with history of Neuro deficit, acute, stroke suspected, Pt. r eports recent stroke. Pt. c/o SAMANO x2 days- denies visual changes or N/V. Pt. takes eliquis and aspirin daily. TECHNIQUE: CT of the brain is performed utilizing 3 mm thick sections through the posterior fossa and 3 mm thick sections through the remaining calvarium. Study is performed within 24 hours of arrival to the hospital. Contrast used: mL of , (none if empty) CT DLP: 1168.4 mGycm, Automated exposure control for dose reduction was used. FINDINGS: No abnormal hyperdensity is present to suggest an acute intracranial hemorrhage. No mass lesion is evident. No acute infarcts are evident. There is an old right parietal lobe infarct. Ventricles and sulci are appropriate for the patient age. Paranasal sinuses and mastoid air cells within the [id number] are clear. IMPRESSION: 1. No acute intracranial process. Follow up MRI can be performed as clinically indicated. Old right parietal lobe infarct [facility], , 06/20/2024 9:11 PM
[2024-06-20 21:17] LABS: Partial Thromboplastin Time 25.3 sec (22.0-30.0); Prothrombin Time 10.9 sec (10.0-12.5)
--- NOTE | 2024-06-20 22:17 | ED ---
Headache HPI - General Chief Complaint: Headache Stated Complaint: Headache,Blood thinners Time Seen by Provider: 06/20/24 21:32 Source: RN notes reviewed, old records reviewed Mode of arrival: wheelchair Limitations: no limitations - History of Present Illness Initial Comments: This is a 64-year-old male to the ER today. Patient presents today for headache and right eye visual floaters and a fall prior to arrival. Patient is on Eliquis with significantly recent CVA MD Complaint: headache, other (Right eye visual floaters) -: hour(s) Onset Description: gradual Location: right, frontal, temporal, retro-orbital Severity: moderate Severity scale (1-10): 7 Quality: intermittent Consistency: constant Improves With: nothing Worsens With: none Treatments Prior to Arrival: none - Related Data Home Medications Medication Instructions Recorded Confirmed Gabapentin [Neurontin] 100 mg PO HS 06/12/24 06/13/24 ALPRAZolam [Xanax] 0.5 mg PO TID PRN 06/13/24 06/13/24 Albuterol Sulfate [Albuterol 2 puff PO RT-Q4H PRN 06/13/24 06/13/24 Sulfate Hfa] Apixaban [Eliquis] 5 mg PO BID 06/13/24 06/13/24 FLUoxetine HCL [PROzac] 20 mg PO DAILY 06/13/24 06/13/24 Metoprolol Succinate (ER) [Toprol 25 mg PO DAILY 06/13/24 06/13/24 XL] Previous Rx's Medication Instructions Recorded Atorvastatin [Lipitor] 40 mg PO DAILY 30 Days #30 tab 05/10/24 Dapagliflozin Propanediol [Farxiga] 10 mg PO DAILY 30 Days #30 tab 05/10/24 Aspirin 81 mg PO DAILY #30 tab 06/13/24 lisinopriL [Zestril] 5 mg PO DAILY tab 06/13/24 Allergies Allergy/AdvReac Type Severity Reaction Status Date / Time codeine Allergy Rash/Hives Verified 06/20/24 20:25 amoxicillin AdvReac Nausea Verified 06/20/24 20:25 azithromycin [From Zithromax] AdvReac Nausea Verified 06/20/24 20:25 divalproex sodium AdvReac Chest Pain Verified 06/20/24 20:25 [From Depakote] Penicillins AdvReac Nausea Verified 06/20/24 20:25 Review of Systems ROS Statement: Those systems with pertinent positive or pertinent negative responses have been documented in the HPI. ROS Other: All systems not noted in ROS Statement are negative. Past Medical History Past Medical History: Asthma, Heart Failure, COPD, CVA/TIA, Eye Disorder, GERD/Reflux, Pneumonia Additional Past Medical History / Comment(s): COVID 02/21, chronic stomach pain, IBS, fluid too thin bilateral eyes/poor vision, pneumonias. heart cath no stents, EF 25/30% Last Myocardial Infarction Date:: 04/22/24 History of Any Multi-Drug Resistant Organisms: None Reported Past Surgical History: Orthopedic Surgery Additional Past Surgical History / Comment(s): L leg injury with surgery/hardware. Past Anesthesia/Blood Transfusion Reactions: No Reported Reaction Past Psychological History: Anxiety, Depression Smoking Status: Former smoker Past Alcohol Use History: None Reported Past Drug Use History: None Reported - Past Family History Father Family Medical History: Cancer Additional Family Medical History / Comment(s): Father of bone cancer Mother Family Medical History: CVA/TIA Additional Family Medical History / Comment(s): Mother is 78yrs old and has had several strokes. General Exam Limitations: no limitations General appearance: alert, in no apparent distress Head exam: Present: atraumatic, normocephalic, normal inspection Eye exam: Present: normal appearance, PERRL, EOMI. Absent: scleral icterus, conjunctival injection, periorbital swelling ENT exam: Present: normal exam, mucous membranes moist Neck exam: Present: normal inspection. Absent: tenderness, meningismus, lymphadenopathy Respiratory exam: Present: normal lung sounds bilaterally. Absent: respiratory distress, wheezes, rales, rhonchi, stridor Cardiovascular Exam: Present: regular rate, normal rhythm, normal heart sounds. Absent: systolic murmur, diastolic murmur, rubs, gallop, clicks GI/Abdominal exam: Present: soft, normal bowel sounds. Absent: distended, tenderness, guarding, rebound, rigid Extremities exam: Present: normal inspection, full ROM, normal capillary refill. Absent: tenderness, pedal edema, joint swelling, calf tenderness Back exam: Present: normal inspection Neurological exam: Present: alert, oriented X3, CN II-XII intact Psychiatric exam: Present: normal affect, normal mood Skin exam: Present: warm, dry, intact, normal color. Absent: rash Course Vital Signs 06/20/24 06/20/24 06/20/24 20:22 21:33 22:05 Temperature 97.7 F Pulse Rate 61 53 L 54 L Respiratory 16 19 17 Rate Blood Pressure 119/77 111/76 121/71 O2 Sat by Pulse 96 96 95 Oximetry 06/20/24 23:52 Temperature Pulse Rate 51 L Respiratory 16 Rate Blood Pressure 116/91 O2 Sat by Pulse 95 Oximetry - Reevaluation(s) Reevaluation #1: 06/20/24 22:38 Medical records reviewed Reevaluation #2: 06/20/24 22:38 Patient still with headache mild still complaining of visual floaters right eye Reevaluation #3: 06/20/24 22:38 Patient informed of results questions answered Reevaluation #4: Was pt. sent in by a medical professional or institution (, [facility], RECYCLING OPERATOR, urgent care, hospital, or residential...) When possible be specific @ -no Did you speak to anyone other than the patient for history (EMS, parent, family, police, friend...)? What history was obtained from this source @ -no Did you review nursing and triage notes (agree or disagree)? Why? @ -agree Are old charts reviewed (outside hosp., previous admission, EMS record, old EKG, old radiological studies, urgent care reports/EKG's, residential records)? Report findings @ -yes Differential Diagnosis (chest pain, altered mental status, abdominal pain women, abdominal pain men, vaginal bleeding, weakness, fever, dyspnea, syncope, headache, dizziness, GI bleed, back pain, seizure, CVA, palpatations, mental health, musculoskeletal)? @ -prior EKG interpreted by me (3pts min.). @ -yes X-rays interpreted by me (1pt min.). @ -yes negative for acute disease CT interpreted by me (1pt min.). @ -no U/S interpreted by me (1pt. min.). @ -no What testing was considered but not performed or refused? (CT, X-rays, U/S, labs)? Why? @ -none What meds were considered but not given or refused? Why? @ -none Did you discuss the management of the patient with other professionals (professionals i.e. Dr., PA, RECYCLING OPERATOR, lab, RT, psych nurse, transition social worker, group fitness manager, teacher, industrial relations officer, pillowcase cleaner)? Give summary @ -no Was smoking cessation discussed for >3mins.? @ -no Was critical care preformed (if so, how long)? @ -no Were there social determinants of health that impacted care today? How? (Homelessness, low income, unemployed, alcoholism, drug addiction, transportation, low edu. Level, literacy, decrease access to med. care, assisted, rehab)? @ -none Was there de-escalation of care discussed even if they declined (Discuss DNR or withdrawal of care, Hospice)? DNR status @ -no What co-morbidities impacted this encounter? (DM, HTN, Smoking, COPD, CAD, Cancer, CVA, ARF, Chemo, Hep., AIDS, mental health diagnosis, sleep apnea, morbid obesity)? @ -none Was patient admitted / discharged? Hospital course, mention meds given and route, prescriptions, significant lab abnormalities, going to OR and other pertinent info. @ - Undiagnosed new problem with uncertain prognosis? @ -no Drug Therapy requiring intensive monitoring for toxicity (Heparin, Nitro, Insulin, Cardizem)? @ -no Were any procedures done? @ -no Diagnosis/symptom? @ - Acute, or Chronic, or Acute on Chronic? @ -Acute Uncomplicated (without systemic symptoms) or Complicated (systemic symptoms)? @ -Complicated Side effects of treatment? @ -no Exacerbation, Progression, or Severe Exacerbation? @ -exacerbation Poses a threat to life or bodily function? How? (Chest pain, USA, VT, pneumonia, PE, COPD, DKA, ARF, appy, cholecystitis, CVA, Diverticulitis, Homicidal, Suicidal, threat to staff... and all critical care pts) @ -yes Reevaluation #5: Differential Headache: Migraine, tension, cluster, carbon monoxide, central venous thrombosis, pension karma temporal arteritis, acute closure glaucoma, intercranial hemorrhage, mastoiditis, sinusitis, head injury, this is not meant to be an all-inclusive list. - Consultations Consultation #1: Spoke with sound who agrees to admit this patient Medical Decision Making - Medical Decision Making 64 male to the ER for evaluation of headache headache with recent CVA on Eliquis, right eye visual floaters which is new today. Patient will get ophthalmology evaluation as well as neurology evaluation - Lab Data Result diagrams: 06/20/24 20:45 06/20/24 20:45 Lab Results 06/20/24 06/20/24 06/20/24 Range/Units 20:45 20:45 20:45 WBC 5.8 (3.8-10.6) k/uL RBC 4.61 (4.30-5.90) m/uL Hgb 14.1 (13.0-17.5) gm/dL Hct 42.9 (39.0-53.0) % MCV 93.1 (80.0-100.0) fL MCH 30.5 (25.0-35.0) pg MCHC 32.7 (31.0-37.0) g/dL RDW 13.1 (11.5-15.5) % Plt Count 227 (150-450) k/uL MPV 7.5 Neutrophils % 51 % Lymphocytes % 34 % Monocytes % 9 % Eosinophils % 3 % Basophils % 1 % Neutrophils # 2.9 (1.3-7.7) k/uL Lymphocytes # 2.0 (1.0-4.8) k/uL Monocytes # 0.5 (0-1.0) k/uL Eosinophils # 0.2 (0-0.7) k/uL Basophils # 0.0 (0-0.2) k/uL PT 10.9 (10.0-12.5) sec INR 1.0 (<1.2) APTT 25.3 (22.0-30.0) sec Sodium 138 (137-145) mmol/L Potassium 4.5 (3.5-5.1) mmol/L Chloride 103 (98-107) mmol/L Carbon Dioxide 26 (22-30) mmol/L Anion Gap 9 mmol/L BUN 19 (9-20) mg/dL Creatinine 0.92 (0.66-1.25) mg/dL Est GFR (CKD-EPI)AfAm >90 (>60 ml/min/1.73 sqM) Est GFR (CKD-EPI)NonAf 89 (>60 ml/min/1.73 sqM) Glucose 84 (74-99) mg/dL Calcium 8.8 (8.4-10.2) mg/dL Total Bilirubin 0.8 (0.2-1.3) mg/dL AST 27 (17-59) U/L ALT 38 (4-49) U/L Alkaline Phosphatase 90 (38-126) U/L Creatine Kinase 44 L (55-170) U/L Troponin I (0.000-0.034) ng/mL Total Protein 6.9 (6.3-8.2) g/dL Albumin 4.0 (3.5-5.0) g/dL 06/20/24 Range/Units 20:45 WBC (3.8-10.6) k/uL RBC (4.30-5.90) m/uL Hgb (13.0-17.5) gm/dL Hct (39.0-53.0) % MCV (80.0-100.0) fL MCH (25.0-35.0) pg MCHC (31.0-37.0) g/dL RDW (11.5-15.5) % Plt Count (150-450) k/uL MPV Neutrophils % % Lymphocytes % % Monocytes % % Eosinophils % % Basophils % % Neutrophils # (1.3-7.7) k/uL Lymphocytes # (1.0-4.8) k/uL Monocytes # (0-1.0) k/uL Eosinophils # (0-0.7) k/uL Basophils # (0-0.2) k/uL PT (10.0-12.5) sec INR (<1.2) APTT (22.0-30.0) sec Sodium (137-145) mmol/L Potassium (3.5-5.1) mmol/L Chloride (98-107) mmol/L Carbon Dioxide (22-30) mmol/L Anion Gap mmol/L BUN (9-20) mg/dL Creatinine (0.66-1.25) mg/dL Est GFR (CKD-EPI)AfAm (>60 ml/min/1.73 sqM) Est GFR (CKD-EPI)NonAf (>60 ml/min/1.73 sqM) Glucose (74-99) mg/dL Calcium (8.4-10.2) mg/dL Total Bilirubin (0.2-1.3) mg/dL AST (17-59) U/L ALT (4-49) U/L Alkaline Phosphatase (38-126) U/L Creatine Kinase (55-170) U/L Troponin I <0.012 (0.000-0.034) ng/mL Total Protein (6.3-8.2) g/dL Albumin (3.5-5.0) g/dL - EKG Data -: EKG Interpreted by Me (EKG is sinus bradycardia 58 CT 182 QRS 90 QTc 386) - Radiology Data Radiology results: report reviewed (CT brain is negative for acute disease), image reviewed Disposition Clinical Impression: Altered mental status, Headache, Visual floaters, Coagulopathy Narrative: recent CVA Disposition: ADMITTED IP TO THIS HOSP Condition: Fair Is patient prescribed a controlled substance at d/c from ED?: No Time of Disposition: 23:10
[2024-06-20] MEDS: MORPHINE SULFATE 4 MG/ML SYRINGE IVP STA (22:26)
[2024-06-20] MEDS: KETOROLAC 15 MG/ML 1 ML VIAL IVP STA (22:27)
[2024-06-20] MEDS: PROCHLORPERAZINE INJ 10 MG/2 ML VIAL IVP STA (22:27)
[2024-06-20] MEDS ORDERED: ONDANSETRON 4 MG/2 ML VIAL IVP PRN (23:12)
[2024-06-20] MEDS ORDERED: MORPHINE SULFATE 4 MG/ML SYRINGE IV PRN (23:12)
[2024-06-20] MEDS ORDERED: NALOXONE 0.4 MG/ML 1 ML VIAL IV PRN (23:12)
[2024-06-20] MEDS: SODIUM CHLORIDE 0.9% 1,000 ML IV SCH (23:49)
[2024-06-21] MEDS ORDERED: ALBUTEROL HFA INHALER INHALATION PRN (01:34)
--- NOTE | 2024-06-21 04:15 | P.HPIM ---
History of Present Illness H&P Date: 06/21/24 Patient is a 64-year-old male with asthma, nonischemic systolic heart failure (laste EF known 25-30%), COPD, CVA/TIA, GERD anxiety, depression here for headaches that has lasted for 2 days. He was recently admitted for intractable headache in 05/05/2024 and 06/12/2024. He was diagnosed with an acute right MCA CVA in a facility in [place] in 04/2024. He follows with a neurologist outpatient. He reported that on 06/20 4 AM when he woke up he had a nonradiating headache that was dull and constant throughout the day. He tried Tylenol to relieve the headache but it did not work. He also has associated right eye floaters that have been persistent throughout the day as well. He denied fever, chills, recent trauma, loss of consciousness, blurring of vision, itching of eyes, issues with his hearing, dizziness, nasal congestion, rhinorrhea, sore throat, shortness of breath, cough, chest pain, palpitations, nausea, vomiting, diarrhea, constipation, dysuria, hematuria, focal weakness, facial asymmetry, calf pain, recent illness, recent travel. He has not been to work since his last admission and has not done any strenuous housework. Social history: Tobacco: Former smoker. Quit 35 years ago Alcohol: Former EtOH use. Quit 15 years ago Recreational drugs: Former illicit drug use. Quit [address] showed no acute intracranial process, old right parietal lobe infract seen. Labs on admission showed WBC 5.8, hemoglobin 14.1, platelet count 227,000, PT 10.9, INR 1, PTT 25.3, sodium 138, potassium 4.5, chloride 103, bicarb 26, BUN 19, creatinine 0.92, glucose 84, AST 27, ALT 38, alk phos 90, CK 44, troponin less than 0.0 12, albumin 4. Vitals on admission were temperature 97.7, pulse rate 61, respiration 16, blood pressure 19/77, O2 96% on room air ED documentation reviewed. Zofran IVP, Compazine IVP, 0.9 normal saline at 75 cc/h and pain control with Toradol and morphine initiated. Review of systems: Pertinent positives and negatives as discussed in HPI, a complete review of systems was performed and all other systems are negative. Physical examination: Vital signs reviewed General: non toxic, no distress, appears at stated age Derm: no unusual rashes/lesions, warm Head: atraumatic, normocephalic, symmetric Eyes: EOMI, anicteric sclera, pupils equal round reactive to light ENT: Nose and ears atraumatic Neck: No cervical lymphadenopathy, trachea midline, supple Mouth: no lip lesion, mucus membranes moist Cardiovascular: S1S2 reg, no murmur, Holter monitor noted Lungs: CTA bilateral, no rhonchi, no rales, no accessory muscle use Abdominal: soft, nondistended, nontender to palpation, no guarding Ext: muscle strength 5 out of 5 in all 4 distal and proximal extremities grossly, no gross muscle atrophy, no contractures, positive dorsalis pedis pulse bilateral, no edema Neuro: CN II-XI grossly intact, no gross focal neuro deficits Psych: Alert and oriented x 3, appropriate affect and mood Assessment/Plan: 64-year-old male with headache with a recent CVA now having right eye floaters. Further evaluation warranted due to significant medical history. #. Headache in the setting of a recent CVA -Brain CT showed no acute intracranial process, old right parietal lobe infract seen -Recent Brain MRI 06/13/2024 showed late subacute on chronic infarct near the junction of the right frontal temporal and parietal lobes, no acute or subacute left-sided infarct is present -Carotid Doppler done on 06/13/2024 showed no hemodynamically significant internal carotid artery stenosis on either side -Continue with pain control with morphine 4 mg IVP -Continue Zofran 4 mg IVP as needed for nausea and vomiting -Continue with neurochecks -Consult neurology #. Right eye floaters -Patient visual acuity unremarkable. No changes in vision. -Consult ophthalmology Chronic Conditions: #. Asthma #. Nonischemic systolic heart failure (laste EF known 25-30%) #. COPD #. CVA/TIA #. GERD #. Anxiety #. Depression -On Eliquis 5 mg twice daily, aspirin 81 mg p.o. daily, Lipitor 40 mg p.o. daily, Farxiga 10 mg p.o. daily, Prozac 20 mg p.o. daily, Neurontin 10 mg p.o. daily, Zestril 5 mg p.o. daily, metoprolol XL 25 mg p.o. daily, alprazolam 0.5 mg p.o. 3 times daily. Continue medications once reconciled F: Oral intake E: None for now N: Regular diet A: And self ambulate DVT ppx: On Eliquis 5 mg p.o. twice daily GI ppx: Not indicated at this time Dispo: The patient is admitted with an anticipated greater than 2 midnight stay for evaluation of headache in the setting of prior CVA CODE STATUS: Full Discussed with: Patient Anticipated discharge place: Home Nataliia Rosenberg MD PGY-1 IM Dictation was produced using [employer] dictation software. please excuse any grammatical, word or spelling errors. I have seen and evaluated the patient today. I Discussed the case with the resident and agree with the resident's findings I edited the assessment and plan as necessary as documented in the resident's note. Past Medical History Past Medical History: Asthma, Heart Failure, COPD, CVA/TIA, Eye Disorder, GERD/Reflux, Pneumonia Additional Past Medical History / Comment(s): COVID 02/21, chronic stomach pain, IBS, fluid too thin bilateral eyes/poor vision, pneumonias. heart cath no stents, EF 25/30% Last Myocardial Infarction Date:: 04/22/24 History of Any Multi-Drug Resistant Organisms: None Reported Past Surgical History: Orthopedic Surgery Additional Past Surgical History / Comment(s): L leg injury with surgery/hardware. Past Anesthesia/Blood Transfusion Reactions: No Reported Reaction Past Psychological History: Anxiety, Depression Smoking Status: Former smoker Past Alcohol Use History: None Reported Past Drug Use History: None Reported - Past Family History Father Family Medical History: Cancer Additional Family Medical History / Comment(s): Father of bone cancer Mother Family Medical History: CVA/TIA Additional Family Medical History / Comment(s): Mother is 78yrs old and has had several strokes. Medications and Allergies Home Medications Medication Instructions Recorded Confirmed Type Atorvastatin [Lipitor] 40 mg PO DAILY 30 Days #30 tab 05/10/24 06/13/24 Rx Dapagliflozin Propanediol [Farxiga] 10 mg PO DAILY 30 Days #30 tab 05/10/24 06/13/24 Rx Gabapentin [Neurontin] 100 mg PO HS 06/12/24 06/13/24 History ALPRAZolam [Xanax] 0.5 mg PO TID PRN 06/13/24 06/13/24 History Albuterol Sulfate [Albuterol 2 puff PO RT-Q4H PRN 06/13/24 06/13/24 History Sulfate Hfa] Apixaban [Eliquis] 5 mg PO BID 06/13/24 06/13/24 History Aspirin 81 mg PO DAILY #30 tab 06/13/24 Rx FLUoxetine HCL [PROzac] 20 mg PO DAILY 06/13/24 06/13/24 History Metoprolol Succinate (ER) [Toprol 25 mg PO DAILY 06/13/24 06/13/24 History XL] lisinopriL [Zestril] 5 mg PO DAILY tab 06/13/24 Rx Allergies Allergy/AdvReac Type Severity Reaction Status Date / Time codeine Allergy Rash/Hives Verified 06/20/24 20:25 amoxicillin AdvReac Nausea Verified 06/20/24 20:25 azithromycin [From Zithromax] AdvReac Nausea Verified 06/20/24 20:25 divalproex sodium AdvReac Chest Pain Verified 06/20/24 20:25 [From Depakote] Penicillins AdvReac Nausea Verified 06/20/24 20:25 Physical Exam Vitals: Vital Signs Temp Pulse Resp BP Pulse Ox 06/20/24 23:52 51 L 16 116/91 95 06/20/24 22:05 54 L 17 121/71 95 06/20/24 21:33 53 L 19 111/76 96 06/20/24 20:22 97.7 F 61 16 119/77 96 Intake and Output 06/20/24 06/20/24 06/21/24 14:59 22:59 06:59 Other: Weight 72.575 kg Results CBC & Chem 7: 06/20/24 20:45 06/20/24 20:45 Labs: Abnormal Lab Results - Last 24 Hours (Table) 06/20/24 Range/Units 20:45 Creatine Kinase 44 L (55-170) U/L
[2024-06-21] MEDS: METOPROLOL SUCCINATE (ER) 25 MG TAB.ER.24H PO SCH (08:16)
[2024-06-21] MEDS: DAPAGLIFLOZIN PROPANEDIOL 10 MG TABLET PO SCH (08:16)
[2024-06-21] MEDS: lisinopriL 5 MG TAB PO SCH (08:16)
[2024-06-21] MEDS: APIXABAN 5 MG TAB PO SCH (08:16)
[2024-06-21] MEDS: FLUoxetine HCL 20 MG CAP PO SCH (08:16)
[2024-06-21] MEDS: ATORVASTATIN 40 MG TAB PO SCH (08:16)
[2024-06-21] MEDS: ASPIRIN 81 MG PO SCH (08:16)
[2024-06-21] MEDS ORDERED: HYDROcodone/APAP 5-325MG 1 EACH TAB PO PRN (14:06)
--- NOTE | 2024-06-21 14:34 | P.PN ---
Subjective Progress Note Date: 06/21/24 Hospital course: Patient is a pleasant 64-year-old male with a past medical history of chronic atrial fibrillation on anticoagulation with Eliquis, nonischemic cardiomyopathy with previously known EF of 25 to 30%, recurrent CVAs/TIAs, hypertension, hyperlipidemia, COPD, and anxiety with depression. Patient presented to the emergency department on 06/20/2024 secondary to headache. Patient reports intractable headache x 2 days accompanied by floaters in right eye. He was recently admitted for similar reports on 05/05/2024 and 06/12/2024. Patient reports this is new since his CVA in April 22, 2024 when he reports he was diagnosed with acute right MCA CVA and upon admission on 06/12/2024 he underwent an MRI and was told he had another stroke. Upon review of MRI completed 06/13/2024, it revealed a late subacute on chronic infarct near the junction of his right frontal temporal and parietal lobes with additional areas of encephalomalacia. Patient reports he follows with neurologist and trauma surgeon out of [facility]. Upon arrival to our facility, patient underwent evaluation in the emergency department. Vital signs upon arrival show blood pressure 119/77, heart rate 61, respiratory rate 16, temp 97.7 F, and SpO2 of 96% on room air. EKG completed showing sinus bradycardia at 58 bpm with T wave inversion in lateral leads I, aVL, V5 and V6. CT brain completed negative for acute intracranial process showing old right parietal lobe infarct. Labs completed and reviewed. CBC unremarkable. Coagulation profile normal findings. BMP normal findings. Creatinine kinase was low at 44. Blood glucose was 84. Troponin was negative at less than 0.012. Patient admitted under our services with consultation to neurology and ophthalmology. Physical exam: Vital signs reviewed and stable. General: Nontoxic, no distress and appears stated age. Derm: Skin warm and dry, normal coloration for ethnicity. Head: Atraumatic, normocephalic and symmetric. Eyes: EOM's intact, no lid lag, and anicteric sclera Mouth: no lip lesions, mucus membranes moist Cardiovascular: regular rate and rhythm with normal S1S2, soft systolic murmur with distant heart sounds, positive posterior tibial pulses bilaterally, and cap refill < 2 seconds. Lungs: Respirations even, regular, and unlabored on room air. Lungs CTA bilaterally, no rhonchi, no rales, no wheezing, and no accessory muscle usage. Abdominal: soft, nontender to palpation, no guarding, no appreciable organomegaly Ext: ROM intact. No gross muscle atrophy, no edema, no contractures Neuro: Speech clear, face symmetrical and CN II-XII grossly intact with no noted focal neuro deficits Psych: Alert and oriented to person, place, time, and situation. Appropriate and pleasant affect. Assessment and Plan of Care: Intractable headache Right eye floaters Recent acute CVA 04/22/2024 followed by subacute on chronic CVA diagnosed on 06/13/2024 -Consult neurology, appreciate recommendations. -Ophthalmology consulted, notified by RN that makeup artist Dr. Walter stated patient may be evaluated in their office after discharge. -Continue neuro checks every 4 hours and as needed -Continue daily aspirin 81 mg daily, Eliquis 5 mg twice daily, and atorvastatin 40 mg daily. -Fall precautions and provide pt with assistance as needed. Atrial fibrillation, paroxysmal Nonischemic cardiomyopathy Hypertension Hyperlipidemia -Continue daily medication regimen with Eliquis 5 mg twice daily, aspirin 81 mg daily, atorvastatin 40 mg daily, Farxiga 10 mg daily, and metoprolol 25 mg daily. COPD, not in acute exacerbation -Continue Ventolin inhaler 2 puffs every 4 hours as needed for wheezing/shortness of breath. CODE STATUS: Full Code DVT prophylaxis: Eliquis Anticipated discharge date:: Pending clinical course, likely 24 to [address]: Home Patient was seen independently by Nurse Pracitioner. This document was prepared using [employer] dictation software. Please allow for errors in lens polisher hand, while rare they do occur. Abhay Oates NP rendered care for this patient independently, reviewed the findings and plan as documented in the note above and agree with plan. I did not physically speak with or examine the patient on this date. Objective - Vital Signs Vital signs: Vital Signs Temp 98.4 F 06/21/24 07:51 Pulse 64 06/21/24 07:51 Resp 20 06/21/24 07:51 BP 106/73 06/21/24 08:14 Pulse Ox 95 06/21/24 07:51 FiO2 Intake & Output 06/20/24 06/21/24 06/21/24 18:59 06:59 18:59 Weight 72.575 kg - Labs CBC & Chem 7: 06/20/24 20:45 06/20/24 20:45 Labs: Abnormal Lab Results - Last 24 Hours (Table) 06/20/24 Range/Units 20:45 Creatine Kinase 44 L (55-170) U/L
[2024-06-21] MEDS: ACETAMINOPHEN TAB 325 MG TAB PO PRN (15:42)
[2024-06-21] MEDS: diphenhydrAMINE 50 MG/ML 1 ML VIAL IVP STA (20:23)
[2024-06-21] MEDS: PROCHLORPERAZINE INJ 10 MG/2 ML VIAL IVP STA (20:24)
[2024-06-21] MEDS: GABAPENTIN 100 MG CAP PO SCH (20:25)
[2024-06-21 22:57] VITALS: RESP 16
[2024-06-21] MEDS: ALPRAZolam 0.5 MG TAB PO PRN (23:11)
--- NOTE | 2024-06-22 11:53 | P.CNNES ---
History of Present Illness Consult date: 06/21/24 Requesting physician: Wilver Vegas Reason for Consult: SAMANO History of Present Illness: Patient is a 64-year-old right-handed male with recent history of CVA times twice, involving the right MCA vascular territory, came to the hospital yesterday at 8:18 PM for 2 days history of headache involving the base of the skull, feeling off balance and a fall. Patient has been seen by Dr. Tariq Don twice with recent admissions. Patient apparently suffered from a stroke on 04/21/2024 involving the right MCA vascular territory, with residual left hemiparesis. He was in [facility] but he left A. They were told that he has M2 blockage. He was placed on Eliquis since they felt it was cardiac in origin but patient does not have any history of atrial fibrillation. He does have chronic history of systolic heart failure with EF of 25%. EEG was negative for seizures. Patient was initially admitted on 05/06/2024 for altered mental status and recent CVA. Patient was discharged on aspirin and Plavix on 05/10/2024 because there were no records of atrial fibrillation or thrombus on the echo. It was felt that patient was noncompliant with hospital follow-ups therefore Eliquis was not recommended. 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 Patient was readmitted to this hospital on 06/13/2024 with headache. He was seen by Dr. Don. MRI of the brain revealed late subacute on chronic infarct near the junction of the right frontal temporal parietal lobe. At that time patient was discharged on aspirin and Eliquis. Patient now comes to the hospital again with a headache of 2 days duration involving base of the skull, which he rates 3/10. Denies any history of migraines, never gets a headache. Patient states that yesterday he was off jackelin nce not feeling well and had a fall. He was going down steps and tripped and he caught himself on the handrail, did not hit his head. It was an accidental fall. He has noticed new onset floaters involving the right eye. It is all the way around and quite large floaters. He has been using cane since the initial stroke. Patient's daughter has noticed that he is now stuttering in the last 1 to 2 days. He had mild slurred speech since his initial CVA, but the stuttering is new. Patient says the headache has resolved since he received Tylenol. He did wake up with some headache this morning. His blood pressures have been running very well. Review of Systems All pertinent positive and negative review of systems mentioned in the HPI. Past Medical History Past Medical History: Asthma, Heart Failure, COPD, CVA/TIA, Eye Disorder, GERD/Reflux, Pneumonia Additional Past Medical History / Comment(s): COVID 02/21, chronic stomach pain, IBS, fluid too thin bilateral eyes/poor vision, pneumonias. heart cath no stents, EF 25/30% Last Myocardial Infarction Date:: 04/22/24 History of Any Multi-Drug Resistant Organisms: None Reported Past Surgical History: Orthopedic Surgery Additional Past Surgical History / Comment(s): L leg injury with surgery/hardware. Past Anesthesia/Blood Transfusion Reactions: No Reported Reaction Past Psychological History: Anxiety, Depression Additional Psychological History / Comment(s): Pt has an adult son residing with him. Pt is independent. Smoking Status: Former smoker Past Alcohol Use History: None Reported Additional Past Alcohol Use History / Comment(s): Pt started smoking as a teen and quit in 1995. Past Drug Use History: None Reported Additional Drug Use History / Comment(s): Pt has hx of drug use but none for 2 years. has not drank alcohol for 10 years - Past Family History Father Family Medical History: Cancer Additional Family Medical History / Comment(s): Father of bone cancer Mother Family Medical History: CVA/TIA Additional Family Medical History / Comment(s): Mother is 78yrs old and has had several strokes. Medications and Allergies Home Medications Medication Instructions Recorded Confirmed Type Atorvastatin [Lipitor] 40 mg PO DAILY 30 Days #30 tab 05/10/24 06/21/24 Rx Dapagliflozin Propanediol [Farxiga] 10 mg PO DAILY 30 Days #30 tab 05/10/24 06/21/24 Rx Gabapentin [Neurontin] 100 mg PO HS 06/12/24 06/21/24 History ALPRAZolam [Xanax] 0.5 mg PO TID PRN 06/13/24 06/21/24 History Albuterol Sulfate [Albuterol 2 puff PO RT-Q4H PRN 06/13/24 06/21/24 History Sulfate Hfa] Apixaban [Eliquis] 5 mg PO BID 06/13/24 06/21/24 History Aspirin 81 mg PO DAILY #30 tab 06/13/24 06/21/24 Rx FLUoxetine HCL [PROzac] 20 mg PO DAILY 06/13/24 06/21/24 History Metoprolol Succinate (ER) [Toprol 25 mg PO DAILY 06/13/24 06/21/24 History XL] lisinopriL [Zestril] 5 mg PO DAILY tab 06/13/24 06/21/24 Rx Allergies Allergy/AdvReac Type Severity Reaction Status Date / Time codeine Allergy Rash/Hives Verified 06/21/24 08:33 amoxicillin AdvReac Nausea Verified 06/21/24 08:33 azithromycin [From Zithromax] AdvReac Nausea Verified 06/21/24 08:33 divalproex sodium AdvReac Chest Pain Verified 06/21/24 08:33 [From Depakote] Penicillins AdvReac Nausea Verified 06/21/24 08:33 Physical Examination - Vital Signs Vital Signs: Vital Signs Temp Pulse Pulse Resp BP BP Pulse Ox 06/21/24 15:00 98.4 F 59 L 17 107/70 97 06/21/24 13:31 98.0 F 66 18 108/70 96 06/21/24 08:14 106/73 06/21/24 07:51 98.4 F 64 20 104/68 95 06/21/24 04:04 98.1 F 62 16 124/66 96 06/21/24 01:11 53 L 16 101/70 97 06/20/24 23:52 51 L 16 116/91 95 06/20/24 22:05 54 L 17 121/71 95 06/20/24 21:33 53 L 19 111/76 96 06/20/24 20:22 97.7 F 61 16 119/77 96 Intake and Output 06/21/24 06/21/24 06/21/24 06:59 14:59 22:59 Other: # Voids 0 Weight 72.575 kg Patient is a late middle-aged male, in no acute distress. Patient is alert awake oriented to time place and person. Speech and language functions are normal. Patient can name and repeat very well. No aphasia, although he has mild dysarthria, very slight stuttering at times. Attention, concentration and fund of knowledge is adequate. On cranial nerve examination, pupils are equal, round and reacting to light, visual mccollum revealed slight neglect in the left lower quadrant, homonymous type. Extraocular muscles are intact with no nystagmus. Patient has left facial droop and his tongue protrudes to the midline. Palatal elevation and sensation normal, hearing and shoulder shrug normal, facial sensation normal. On muscle strength testing, there is mild left pronator drift and mild left leg drift. The strength is normal in arms and legs distally and proximally. Deep tendon reflexes are (right/left) biceps 2/3, brachioradialis 2/3, knees 2+/2+, ankles 1+/1+ and plantars downgoing bilaterally Sensory to touch is equal, but he neglects left side with double simultaneous stimulation. Cerebellar function showed mild ataxia for [id number] testing, only on the left side. No ataxia for [id number] testing on either side. Tone and bulk of muscles normal. Gait deferred.. On general examination, there is no carotid bruit or murmur, S1-S2 audible. Chest is clear on consultation. Abdomen is soft nontender. No organomegaly, bowel sounds present. Peripheral pulses are present. No peripheral edema. Results - Laboratory Findings CBC and BMP: 06/20/24 20:45 06/20/24 20:45 Abnormal Lab Findings: Abnormal Labs 06/20/24 20:45 Creatine Kinase 44 L Assessment and Plan Assessment: * 64-year-old male with recent history of right MCA territory stroke (04/21/2024) with mild residual paresis, came to the hospital with new onset occipital headache, stuttering speech, floaters in the right eye and a near fall due to missing step. Rule out CVA. * CHF with EF 25% * Hypertension Plan: * MRI of the brain evaluate for an acute stroke * EEG * Ophthalmology consultation for new onset floaters in the right eye. * Hemoglobin A1c 5.6 * ESR, CRP rule out temporal arteritis * Lipid panel with cholesterol 125, LDL 71, HDL 38 and triglycerides 74. Continue Lipitor 40 mg daily * Continue Eliquis 5 mg twice daily and aspirin 81 mg daily (both home meds). * Discussed with patient's daughter in detail. * Neurology will follow. Thank you for the consult.
[2024-06-22 15:06] VITALS: BP 109/80; PULSE 77; TEMP 98
--- NOTE | 2024-06-22 16:31 | MR ---
INDICATION: Patient age:Male; 64 years old; Reason for study: New onset stuttering, r/o new cva; PHH. COMPARISON: MRI brain 06/13/2024, CT brain 06/20/2024, 06/12/2024, CT brain C-spine 05/05/2024. TECHNIQUE: Multi planar, multi sequence imaging was performed through the brain without administratio n of intravenous contrast. FINDINGS: Diffusion weighted images demonstrate an old infarct at the junction of the right frontoparietal lobe s with the superior temporal lobe again. There is T2 shine through without corresponding low ADC appe arance consistent with remote infarct and encephalomalacia. No new restricted diffusion to suggest ac karma/subacute ischemia. Mild ventricular and sulcal prominence. There is corresponding FLAIR signal within the region of prio r infarct. No new suspicious FLAIR signal abnormality. Intracranial arterial flow voids are maintaine d. Midline structures show no abnormality. The susceptibility weighted images do not reveal any evide nce for micro-hemorrhage. The bone marrow signal is within normal limits. The globes unremarkable. Mild mucosal thickening of the ethmoid sinuses with minimal mucosal thickening of the left maxillary sinus. IMPRESSION: Redemonstration of chronic infarct involving the right frontotemporal and parietal regions with encep halomalacia. No new acute/subacute infarct. [facility], , 06/22/2024 4:28 PM
--- NOTE | 2024-06-22 17:01 | P.DS ---
Providers Date of admission: 06/20/24 23:14 Expected date of discharge: 06/22/24 Attending physician: Macho Foy MD Consults: 06/20/24 23:12 Consult Physician Routine Consulting Provider: Ash Walter Consult Reason/Comments: FloatersReye Do you want consulting provider notified?: Yes Consult Physician Routine Consulting Provider: Jeimy Clark Consult Reason/Comments: SAMANO Do you want consulting provider notified?: Yes Primary care physician: Gt Lamas Hospital Course: Discharge Diagnosis: Intractable headache, resolved after migraine cocktail. Right eye floaters. Patient to follow-up with Dr. Walter, creative services director on discharge. Discussed in detail with patient and patient's daughter. Recent acute CVA 04/22/2024 followed by subacute on chronic CVA diagnosed on 06/13/2024 Atrial fibrillation, paroxysmal Nonischemic cardiomyopathy Hypertension Hyperlipidemia COPD, not in acute exacerbation Hospital course: Patient is a pleasant 64-year-old male with a past medical history of chronic atrial fibrillation on anticoagulation with Eliquis, nonischemic cardiomyopathy with previously known EF of 25 to 30%, recurrent CVAs/TIAs, hypertension, hyperlipidemia, COPD, and anxiety with depression. Patient presented to the emergency department on 06/20/2024 secondary to headache. Patient reports i ntractable headache x 2 days accompanied by floaters in right eye. He was recently admitted for similar reports on 05/05/2024 and 06/12/2024. Patient reports this is new since his CVA in April 22, 2024 when he reports he was diagnosed with acute right MCA CVA and upon admission on 06/12/2024 he underwent an MRI and was told he had another stroke. Upon review of MRI completed 06/13/2024, it revealed a late subacute on chronic infarct near the junction of his right frontal temporal and parietal lobes with additional areas of encephalomalacia. 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 Upon arrival to our facility, patient underwent evaluation in the emergency department. Vital signs upon arrival show blood pressure 119/77, heart rate 61, respiratory rate 16, temp 97.7 F, and SpO2 of 96% on room air. EKG completed showing sinus bradycardia at 58 bpm with T wave inversion in lateral leads I, aVL, V5 and V6. CT brain completed negative for acute intracranial process showing old right parietal lobe infarct. Labs completed and reviewed. CBC unremarkable. Coagulation profile normal findings. BMP normal findings. Creatinine kinase was low at 44. Blood glucose was 84. Troponin was negative at less than 0.012. Patient admitted under our services with consultation to neurology and ophthalmology. Patient was evaluated by neurology. Ophtha lmologist called and stated patient to follow-up in his office for evaluation after discharge. MRI brain was completed showing redemonstration of chronic infarct involving the right frontal temporal and parietal regions with encephalomalacia reporting no new acute or subacute infarct. EEG was completed, report not available but per neurologist patient is cleared for discharge at this time recommending following up outpatient with primary neurologist at [facility]. Patient reports headache remains resolved after receiving migraine cocktail after admission. He denies any other complaints at this time. Patient to follow-up outpatient with PCP in 1 to 2 days, creative services director within the next week, and recommended following up with primary neurologist at [facility] in the next 1 to 2 weeks. Physical exam: Vital signs reviewed and stable. General: Nontoxic, no distress and appears stated age. Derm: Skin warm and dry, normal coloration for ethnicity. Head: Atraumatic, normocephalic and symmetric. Eyes: EOM's intact, no lid lag, and anicteric sclera Mouth: no lip lesions, mucus membranes moist Cardiovascular: regular rate and rhythm with normal S1S2, soft systolic murmur with distant heart sounds, positive posterior tibial pulses bilaterally, and cap refill < 2 seconds. Lungs: Respirations even, regular, and unlabored on room air. Lungs CTA bilaterally, no rhonchi, no rales, no wheezing, and no accessory muscle usage. Abdominal: soft, nontender to palpation, no guarding, no appreciable organomegaly Ext: No gross muscle atrophy, no edema, no contractures. Movement and sensation intact. Patient with slight weakness of left upper extremity when compared to right, otherwise normal neuroexam. Neuro: Speech clear with occasional stuttering, face symmetrical and CN II-XII grossly intact with no noted focal neuro deficits Psych: Alert and oriented to person, place, time, and situation. Appropriate and pleasant affect. A total of 35 minutes of time were spent preparing this complex discharge summary. Pt was discharged on 06/22/2024 at 5:01 PM. Patient was seen independently by Nurse Practitioner. This document was prepared using Dragon dictation software. Please allow for errors in snow removing supervisor while rare they do occur. Abhay Oates NP rendered care for this patient independently, reviewed the findings and plan as documented in the note above. I did not physically speak with or examine the patient on this date. Patient Condition at Discharge: Stable Plan - Discharge Summary Discharge Rx Participant: Yes New Discharge Prescriptions: Continue Metoprolol Succinate (ER) [Toprol XL] 25 mg PO DAILY FLUoxetine HCL [PROzac] 20 mg PO DAILY Albuterol Sulfate [Albuterol Sulfate Hfa] 2 puff PO RT-Q4H PRN PRN Reason: Shortness Of Breath Dapagliflozin Propanediol [Farxiga] 10 mg PO DAILY 30 Days #30 tab Atorvastatin [Lipitor] 40 mg PO DAILY 30 Days #30 tab Gabapentin [Neurontin] 100 mg PO HS ALPRAZolam [Xanax] 0.5 mg PO TID PRN PRN Reason: Anxiety Apixaban [Eliquis] 5 mg PO BID Aspirin 81 mg PO DAILY #30 tab lisinopriL [Zestril] 5 mg PO DAILY tab Discharge Medication List Atorvastatin [Lipitor] 40 mg PO DAILY 30 Days #30 tab 05/10/24 [Rx] Dapagliflozin Propanediol [Farxiga] 10 mg PO DAILY 30 Days #30 tab 05/10/24 [Rx] Gabapentin [Neurontin] 100 mg PO HS 06/12/24 [History] ALPRAZolam [Xanax] 0.5 mg PO TID PRN 06/13/24 [History] Albuterol Sulfate [Albuterol Sulfate Hfa] 2 puff PO RT-Q4H PRN 06/13/24 [History] Apixaban [Eliquis] 5 mg PO BID 06/13/24 [History] Aspirin 81 mg PO DAILY #30 tab 06/13/24 [Rx] FLUoxetine HCL [PROzac] 20 mg PO DAILY 06/13/24 [History] Metoprolol Succinate (ER) [Toprol XL] 25 mg PO DAILY 06/13/24 [History] lisinopriL [Zestril] 5 mg PO DAILY tab 06/13/24 [Rx] Follow up Appointment(s)/Referral(s): Ash Walter MD [STAFF PHYSICIAN] - 1 Week Gt Lamas MD [Primary Care Provider] - 1-2 days Patient Instructions/Handouts: Acute Headache (DC), Electroencephalogram (DC) Activity/Diet/Wound Care/Special Instructions: Activity: As tolerated. Take breaks as needed. Diet: Heart healthy and carb consistent diet. Avoid salts, or foods with hidden salts such as canned or boxed foods and frozen dinners. Extra salt makes your heart work harder and traps the fluid in your body for longer. Special Instructions: Take all of your medications as directed and remember to keep all of your doctor's appointments and follow-up as needed. It is important to follow-up with your neurologist at [facility]. Thank you for allowing us to participate in your care, it was truly a pleasure having you for our patient!!! Discharge Disposition: HOME SELF-CARE
--- NOTE | 2024-06-22 21:10 | EEG ---
ELECTROENCEPHALOGRAM REPORT PREAMBLE: This is a 64-year-old male, who has history of recurrent strokes, came with some stuttering. Rule out seizures. EEG FINDINGS: This is a 21-channel digital EEG recorded with video component, utilizing 10/20 international system with referential and bipolar montages. Background consists of well developed, well regulated moderate voltage activity in 9 to 10 hertz alpha. Background is posterior dominant and is reactive to eye opening and closing. Photic driving response was seen with some flash frequencies. There is focal slowing in the delta range seen in the right anterior temporal region. Drowsiness was seen with appearance of bilaterally symmetric theta frequency rhythm. Deeper stages of sleep were not seen. No focal or generalized epileptiform activity was seen. IMPRESSION: This is an abnormal EEG due to focal slowing in the right anterior temporal region. This is suggestive of focal cortical neuronal dysfunction and may be related to underlying structural abnormality. No focal or generalized epileptiform activity was seen. MMODL / IJN: [id number] / MTDD
--- NOTE | 2024-06-23 10:55 | P.PN ---
Subjective Progress Note Date: 06/22/24 Patient was seen for follow-up. Patient's was present. Patient is doing much better. Still has some floaters on the right eye, but is better. No new concerns. Objective - Vital Signs Vital signs: Vital Signs Temp 98.0 F 06/22/24 15:00 Pulse 77 06/22/24 15:00 Resp 16 06/22/24 15:00 BP 109/80 06/22/24 15:00 Pulse Ox 95 06/22/24 15:00 FiO2 Intake & Output 06/21/24 06/22/24 06/22/24 18:59 06:59 18:59 Weight 72.575 kg Other: Voiding Method Toilet # Voids 0 0 - Exam Unchanged. - Labs CBC & Chem 7: 06/20/24 20:45 06/20/24 20:45 Assessment and Plan Assessment: * 64-year-old male with recent history of right MCA territory stroke (04/21/2024) with mild residual paresis, came to the hospital with new onset occipital headache, stuttering speech, floaters in the right eye and a near fall due to missing step. Rule out CVA. * CHF with EF 25% * Hypertension Plan: * MRI of the brain revealed redemonstration of chronic infarct involving the right frontotemporal and parietal region with encephalomalacia. No new acute/subacute infarct. I personally reviewed MRI agree with the findings. * EEG was abnormal due to focal slowing in the right anterior temporal region. This is suggestive of focal cortical neuronal dysfunction and may suggest underlying structural abnormality. No focal or generalized epileptiform activity was seen. * Ophthalmology consultation for new onset floaters in the right eye. * Hemoglobin A1c 5.6 * ESR 10, CRP <0.5. No evidence of temporal arteritis * Lipid panel with cholesterol 125, LDL 71, HDL 38 and triglycerides 74. Continue Lipitor 40 mg daily * Continue Eliquis 5 mg twice daily and aspirin 81 mg daily (both home meds). * Neurologically clear for discharge.
== END 2024-06-22 18:40 | disposition home or self-care (01) ==
LOC: EC 20:18 → 6NMEDSUR 23:14
PROVIDERS: ADMIT Internal Medicine; ATTEND Internal Medicine
DX: R51.9 Headache, unspecified (principal); H53.8 Other visual disturbances; D68.9 Coagulation defect, unspecified; I69.354 Hemiplegia and hemiparesis following cerebral infarction affecting left non-dominant side; E78.5 Hyperlipidemia, unspecified; F32.A Depression, unspecified; F41.9 Anxiety disorder, unspecified; I11.0 Hypertensive heart disease with heart failure; I50.22 Chronic systolic (congestive) heart failure; I25.2 Old myocardial infarction; I42.8 Other cardiomyopathies; I48.0 Paroxysmal atrial fibrillation; I48.20 Chronic atrial fibrillation, unspecified; J44.89 Other specified chronic obstructive pulmonary disease; K21.9 Gastro-esophageal reflux disease without esophagitis; W19.XXXA Unspecified fall, initial encounter; K58.9 Irritable bowel syndrome, unspecified; Z79.01 Long term (current) use of anticoagulants; Z79.82 Long term (current) use of aspirin; Z79.84 Long term (current) use of oral hypoglycemic drugs; Z79.899 Other long term (current) drug therapy; Z87.891 Personal history of nicotine dependence; Z88.5 Allergy status to narcotic agent; Z88.1 Allergy status to other antibiotic agents; Z88.0 Allergy status to penicillin
CPT/HCPCS: 99285; 36415; 95819; 93005; 80053; 85652; 82550; 84484; 85025; 85610; 85730; 86140; 83036; 70450; 70551; G0378 ×3

== ENCOUNTER → 2024-06-29 | Outpatient (CLI) | payer OTHER ==
[2024-06-29 15:11] LABS: BUN/Creat Ratio 15.33 Ratio (12.00-20.00); Blood Urea Nitrogen 13.8 mg/dL (9.0-27.0); Calcium 8.9 mg/dL (8.7-10.3); Carbon Dioxide 26.5 mmol/L (21.6-31.8); Chloride 105 mmol/L (96-109); Chol/HDL Ratio 3.04 Ratio; Glucose 97 mg/dL (70-110); LDL Cholesterol,Calculated 59.5 mg/dL (0.0-131.0); Potassium 4.5 mmol/L (3.5-5.5); Sodium 141 mmol/L (135-145); VLDL Calculation 14.32 mg/dL (5.00-40.00)
== END | disposition home or self-care (01) ==
LOC: LABWHC1 09:49
PROVIDERS: ATTEND Internal Medicine Cardiovascular Disease
DX: I50.9 Heart failure, unspecified (principal)
CPT/HCPCS: 36415; 80048; 80061

== ENCOUNTER 2024-07-07 17:13 | Observation (INO) | payer OTHER ==
--- NOTE | 2024-07-07 17:50 | ED ---
General Adult HPI - General Chief complaint: Chest Pain Stated complaint: chest pain Time Seen by Provider: 07/07/24 17:19 Source: patient, EMS Mode of arrival: EMS Limitations: no limitations - History of Present Illness Initial comments: Dictation was produced using [employer] dictation software. please excuse any grammatical, word or spelling errors. Chief Complaint: 64-year-old male presents with exertional dyspnea and shoulder pressure History of Present Illness: Patient 64-year-old male states that he has extensive history of coronary artery disease. Patient states that today he woke up one of the stairs started to feel dyspneic and was associated with some left shoulder pressure. She states that from previous heart attack she has had only left shoulder pain. EMS was called patient was given aspirin states that his symptoms resolved. Patient asymptomatic at the bedside. The ROS documented in this emergency department record has been reviewed and confirmed by me. Those systems with pertinent positive or negative responses have been documented in the HPI. All other systems are other negative and/or noncontributory. - Related Data Home Medications Medication Instructions Recorded Confirmed Gabapentin [Neurontin] 100 mg PO HS 06/12/24 06/21/24 ALPRAZolam [Xanax] 0.5 mg PO TID PRN 06/13/24 06/21/24 Albuterol Sulfate [Albuterol 2 puff PO RT-Q4H PRN 06/13/24 06/21/24 Sulfate Hfa] Apixaban [Eliquis] 5 mg PO BID 06/13/24 06/21/24 FLUoxetine HCL [PROzac] 20 mg PO DAILY 06/13/24 06/21/24 Metoprolol Succinate (ER) [Toprol 25 mg PO DAILY 06/13/24 06/21/24 XL] Previous Rx's Medication Instructions Recorded Atorvastatin [Lipitor] 40 mg PO DAILY 30 Days #30 tab 05/10/24 Dapagliflozin Propanediol [Farxiga] 10 mg PO DAILY 30 Days #30 tab 05/10/24 Aspirin 81 mg PO DAILY #30 tab 06/13/24 lisinopriL [Zestril] 5 mg PO DAILY tab 06/13/24 Allergies Allergy/AdvReac Type Severity Reaction Status Date / Time codeine Allergy Rash/Hives Verified 07/07/24 17:26 amoxicillin AdvReac Nausea Verified 07/07/24 17:26 azithromycin [From Zithromax] AdvReac Nausea Verified 07/07/24 17:26 divalproex sodium AdvReac Chest Pain Verified 07/07/24 17:26 [From Depakote] Penicillins AdvReac Nausea Verified 07/07/24 17:26 Review of Systems ROS Statement: Those systems with pertinent positive or pertinent negative responses have been documented in the HPI. ROS Other: All systems not noted in ROS Statement are negative. Past Medical History Past Medical History: Atrial Fibrillation, Asthma, Heart Failure, COPD, CVA/TIA, Eye Disorder, GERD/Reflux, Pneumonia Additional Past Medical History / Comment(s): COVID 02/21, chronic stomach pain, IBS, fluid too thin bilateral eyes/poor vision, pneumonias. heart cath no stents, EF 25/30% Last Myocardial Infarction Date:: 04/22/24 History of Any Multi-Drug Resistant Organisms: None Reported Past Surgical History: Orthopedic Surgery Additional Past Surgical History / Comment(s): L leg injury with surg prasad/hardware. Past Anesthesia/Blood Transfusion Reactions: No Reported Reaction Past Psychological History: Anxiety, Depression Smoking Status: Former smoker Past Alcohol Use History: None Reported Past Drug Use History: None Reported - Past Family History Father Family Medical History: Cancer Additional Family Medical History / Comment(s): Father of bone cancer Mother Family Medical History: CVA/TIA Additional Family Medical History / Comment(s): Mother is 78yrs old and has had several strokes. General Exam - General Exam Comments Initial Comments: PHYSICAL EXAM: General Impression: Alert and oriented x3, not in acute distress HEENT: Normocephalic atraumatic, extra-ocular movements intact, pupils equal and reactive to light bilaterally, mucous membranes moist. Cardiovascular: Heart regular rate and rhythm Chest: Able to complete full sentences, no retractions, no tachypnea Abdomen: abdomen soft, non-tender, non-distended, no organomegaly Musculoskeletal: Pulses present and equal in all extremities, no peripheral edema Motor: no focal deficits noted Neurological: CN II-XII grossly intact, no focal motor or sensory deficits noted Skin: Intact with no visualized rashes Psych: Normal affect and mood Limitations: no limitations Course Vital Signs 07/07/24 17:19 Temperature 98.6 F Pulse Rate 65 Respiratory 18 Rate Blood Pressure 122/78 O2 Sat by Pulse 99 Oximetry EKG Findings - EKG Comments: EKG Findings:: My EKG interpretation: Ventricular rate 66, sinus rhythm,. 163, QRS 109, QTc 420. No TX prolongation, no QTC prolongation, no ST or T-wave changes noted. Overall, this EKG is unremarkable Medical Decision Making - Medical Decision Making Was pt. sent in by a medical professional or institution (, PA, CHILD CARE DEVELOPMENT SPECIALIST, urgent care, hospital, or group home...) When possible be specific @ -No Did you speak to anyone other than the patient for history (EMS, parent, family, police, friend...)? What history was obtained from this source @ -No Did you review nursing and triage notes (agree or disagree)? Why? @ -I reviewed and agree with nursing and triage notes Were old charts reviewed (outside hosp., previous admission, EMS record, old EKG, old radiological studies, urgent care reports/EKG's, group home records)? Report findings @ -No old charts were reviewed Differential Diagnosis (chest pain, altered mental status, abdominal pain women, abdominal pain men, vaginal bleeding, musculoskeletal, weakness, fever, dyspnea, syncope, headache, dizziness, GI bleed, back pain, seizure, CVA, palpatations, mental health)? @ -Differential Chest Pain: Stable Angina, Unstable Angina, STEMI, NSTEMI Aortic Dissection, Pneumothorax, Musculoskeletal, Esophageal Spasm GERD, Cholecystitis, Pancreatitis, Zoster, this is not meant to be an all-inclusive list. EKG interpreted by me (3pts min.). @ -See above X-rays interpreted by me (1pt min.). @ -X-ray shows no acute processes CT interpreted by me (1pt min.). @ -None done U/S interpreted by me (1pt. min.). @ -None done What testing was considered but not performed or refused? (CT, X-rays, U/S, labs)? Why? @ -None What meds were considered but not given or refused? Why? @ -None Was smoking cessation discussed for >3mins.? @ -No Were there social determinants of health that impacted care today? How? (Homelessness, low income, unemployed, alcoholism, drug addiction, transportation, low edu. Level, literacy, decrease access to med. care, long term, rehab)? @ -No Was there de-escalation of care discussed even if they declined (Discuss DNR or withdrawal of care, Hospice)? DNR status @ -No What co-morbidities impacted this encounter? (DM, HTN, Smoking, COPD, CAD, Cancer, CVA, ARF, Chemo, Hep., AIDS, mental health diagnosis, sleep apnea, morbid obesity)? @ -Coronary artery disease Was patient admitted / discharged? Hospital course, mention meds given and rou te, prescriptions, significant lab abnormalities, going to OR and other pertinent info. @ -62-year-old male with history of ACS presents to the ER for exertional dyspnea and right shoulder pain. States he had the symptoms when diagnosed with heart attack previously. Vital signs stable. EKG is unremarkable. Laboratory evaluation obtained. Labs are within acceptable limits. Patient reevaluated bedside at 7:01 PM found to be stable medical addition. Patient be admitted to observation due to high risk score. Patient agreeable plan received aspirin by prehospital providers. Did you discuss the management of the patient with other professionals (professionals i.e. , PA, CHILD CARE DEVELOPMENT SPECIALIST, lab, RT, psych nurse, social media marketing analyst, control room technician, teacher, submarine advisory team watch officer, disease case manager)? Give summary @ -Case discussed with hospitalist for admission Was critical care preformed (if so, how long)? @ -No Undiagnosed new problem with uncertain prognosis? @ -No Drug Therapy requiring intensive monitoring for toxicity (Heparin, Nitro, Insulin, Cardizem)? @ -No Were any procedures done? @ -No Diagnosis/symptom? Acute, or Chronic, or Acute on Chronic? Uncomplicated (without systemic symptoms) or Complicated (systemic symptoms)? @ -Acute coronary syndrome Side effects of treatment? @ -No Exacerbation, Progression, or Severe Exacerbation? @ -No Poses a threat to life or bodily function? How? (Chest pain, USA, SD, pneumonia, PE, COPD, DKA, ARF, appy, cholecystitis, CVA, Diverticulitis, Homicidal, Suici cullen, threat to staff... and all critical care pts) @ -yes - Lab Data Result diagrams: 07/07/24 17:45 07/07/24 17:45 Lab Results 07/07/24 07/07/24 07/07/24 Range/Units 17:45 17:45 17:45 WBC 3.4 L (3.8-10.6) k/uL RBC 4.68 (4.30-5.90) m/uL Hgb 13.9 (13.0-17.5) gm/dL Hct 43.6 (39.0-53.0) % MCV 93.1 (80.0-100.0) fL MCH 29.8 (25.0-35.0) pg MCHC 32.0 (31.0-37.0) g/dL RDW 13.2 (11.5-15.5) % Plt Count 202 (150-450) k/uL MPV 8.1 Neutrophils % 35 % Lymphocytes % 50 % Monocytes % 9 % Eosinophils % 3 % Basophils % 1 % Neutrophils # 1.2 L (1.3-7.7) k/uL Lymphocytes # 1.7 (1.0-4.8) k/uL Monocytes # 0.3 (0-1.0) k/uL Eosinophils # 0.1 (0-0.7) k/uL Basophils # 0.0 (0-0.2) k/uL PT 10.4 (10.0-12.5) sec INR 0.9 (<1.2) APTT 23.8 (22.0-30.0) sec Sodium 139 (137-145) mmol/L Potassium 4.1 (3.5-5.1) mmol/L Chloride 106 (98-107) mmol/L Carbon Dioxide 23 (22-30) mmol/L Anion Gap 10 mmol/L BUN 15 (9-20) mg/dL Creatinine 0.78 (0.66-1.25) mg/dL Est GFR (CKD-EPI)AfAm >90 (>60 ml/min/1.73 sqM) Est GFR (CKD-EPI)NonAf >90 (>60 ml/min/1.73 sqM) Glucose 132 H (74-99) mg/dL Calcium 8.6 (8.4-10.2) mg/dL Magnesium 2.0 (1.6-2.3) mg/dL Total Bilirubin 0.4 (0.2-1.3) mg/dL AST 26 (17-59) U/L ALT 31 (4-49) U/L Alkaline Phosphatase 82 (38-126) U/L Troponin I (0.000-0.034) ng/mL Total Protein 6.7 (6.3-8.2) g/dL Albumin 3.8 (3.5-5.0) g/dL 07/07/24 Range/Units 17:45 WBC (3.8-10.6) k/uL RBC (4.30-5.90) m/uL Hgb (13.0-17.5) gm/dL Hct (39.0-53.0) % MCV (80.0-100.0) fL MCH (25.0-35.0) pg MCHC (31.0-37.0) g/dL RDW (11.5-15.5) % Plt Count (150-450) k/uL MPV Neutrophils % % Lymphocytes % % Monocytes % % Eosinophils % % Basophils % % Neutrophils # (1.3-7.7) k/uL Lymphocytes # (1.0-4.8) k/uL Monocytes # (0-1.0) k/uL Eosinophils # (0-0.7) k/uL Basophils # (0-0.2) k/uL PT (10.0-12.5) sec INR (<1.2) APTT (22.0-30.0) sec Sodium (137-145) mmol/L Potassium (3.5-5.1) mmol/L Chloride (98-107) mmol/L Carbon Dioxide (22-30) mmol/L Anion Gap mmol/L BUN (9-20) mg/dL Creatinine (0.66-1.25) mg/dL Est GFR (CKD-EPI)AfAm (>60 ml/min/1.73 sqM) Est GFR (CKD-EPI)NonAf (>60 ml/min/1.73 sqM) Glucose (74-99) mg/dL Calcium (8.4-10.2) mg/dL Magnesium (1.6-2.3) mg/dL Total Bilirubin (0.2-1.3) mg/dL AST (17-59) U/L ALT (4-49) U/L Alkaline Phosphatase (38-126) U/L Troponin I <0.012 (0.000-0.034) ng/mL Total Protein (6.3-8.2) g/dL Albumin (3.5-5.0) g/dL Disposition Clinical Impression: Chest pain Disposition: ADMITTED IP TO THIS HOSP Condition: Fair Referrals: Deny Barrera MD [Primary Care Provider] - 1-2 days Decision Time: 19:02
[2024-07-07 18:14] LABS: INR 0.9 (<1.2); Partial Thromboplastin Time 23.8 sec (22.0-30.0); Prothrombin Time 10.4 sec (10.0-12.5)
[2024-07-07 18:16] LABS: ALT 31 U/L (4-49); AST 26 U/L (17-59); African American GFR (CKD) >90 (>60 ml/min/1.73 sqM); Albumin 3.8 g/dL (3.5-5.0); Alkaline Phosphatase 82 U/L (38-126); Anion Gap 10 mmol/L; Blood Urea Nitrogen 15 mg/dL (9-20); Calcium 8.6 mg/dL (8.4-10.2); Carbon Dioxide 23 mmol/L (22-30); Chloride 106 mmol/L (98-107); Glucose 132 mg/dL (74-99); Non-African American GFR(CKD) >90 (>60 ml/min/1.73 sqM); Potassium 4.1 mmol/L (3.5-5.1); Sodium 139 mmol/L (137-145); Total Bilirubin 0.4 mg/dL (0.2-1.3); Total Protein 6.7 g/dL (6.3-8.2)
[2024-07-07 18:30] LABS: HCT 43.6 % (39.0-53.0); HGB 13.9 gm/dL (13.0-17.5); MCH 29.8 pg (25.0-35.0); MCV 93.1 fL (80.0-100.0); RBC 4.68 m/uL (4.30-5.90); WBC 3.4 k/uL (3.8-10.6)
[2024-07-07 18:31] LABS: Basophils % (A) 1 %; Eosinophils # (A) 0.1 k/uL (0-0.7); Eosinophils % (A) 3 %; Lymphocytes # (A) 1.7 k/uL (1.0-4.8); Lymphocytes % (A) 50 %; Mean Platelet Volume 8.1; Monocytes # (A) 0.3 k/uL (0-1.0); Monocytes % (A) 9 %; Neutrophils # (A) 1.2 k/uL (1.3-7.7); Neutrophils % (A) 35 %; Platelet Count 202 k/uL (150-450); RDW 13.2 % (11.5-15.5)
--- NOTE | 2024-07-07 18:47 | XR ---
EXAMINATION TYPE: XR chest 2V DATE OF EXAM: 07/07/2024 6:43 PM COMPARISON: 925 CLINICAL INDICATION: Male, 64 years old with history of Chest Pain: Shortness of breath TECHNIQUE: XR chest 2V views of the chest are obtained. FINDINGS: Scattered senescent parenchymal changes noted. No evidence for infiltrate. No evidence for atelectasis. Heart size is stable. Mediastinal structures are stable and grossly unremarkable. No evidence for hilar prominence. Degenerative changes dorsal spine. IMPRESSION: 1. No evidence for acute pulmonary disease. [facility], , 07/07/2024 6:45 PM
[2024-07-07] MEDS ORDERED: NITROGLYCERIN SL TABS 0.4 MG TAB SUBLINGUAL PRN (18:58)
[2024-07-07] MEDS ORDERED: ALBUTEROL NEBULIZED 2.5 MG/3 ML INHALATION PRN (19:37)
[2024-07-07] MEDS ORDERED: ALPRAZolam 0.5 MG TAB PO PRN (19:37)
[2024-07-07] MEDS: PANTOPRAZOLE 40 MG TABLET PO STA (20:08)
[2024-07-07] MEDS: APIXABAN 5 MG TAB PO SCH (20:08)
[2024-07-07] MEDS: GABAPENTIN 100 MG CAP PO SCH (20:08)
[2024-07-07] MEDS ORDERED: ACETAMINOPHEN TAB 325 MG TAB PO PRN (22:15)
--- NOTE | 2024-07-08 01:15 | P.HPIM ---
History of Present Illness H&P Date: 07/07/24 History of present illness; Patient is a 64-year-old male with a PMH of recent CVA (believed to be c ardioembolic, currently on Eliquis) and UT, nonischemic systolic CHF EF 25 to 30%, COPD, and GERD presenting with R shoulder pain. Patient states that this morning he felt a little more lethargic than usual and had some mild right shoulder pain. Later as he was walking up the stairs he felt his right shoulder pain worsen, the pain similarly felt during his last UT. He says the pain was dull and constant in nature and lasted for about 1 hour. Pain was nonradiating and 4 out of 10 in severity. He had associated shortness of breath during this time. Currently patient reports absence of fever, chills, chest pain, palpitations, pleuritic pain, diaphoresis, dyspnea, cough, abdominal pain, nausea, vomiting, constipation, diarrhea, weakness, myalgia, recent immobilizati on, dizziness, headache, and dysuria. Spoke with the ER physician, patient admission was accepted by internal medicine service for treatment. REVIEW OF SYSTEMS: Pertinent positives and negatives noted in HPI. PHYSICAL EXAMINATION: Vitals reviewed GENERAL: Resting comfortably in bed. EYES: PERRL, no scleral injection or icterus. No vision loss HENT: Normocephalic, atraumatic, hearing grossly intact, moist mucous membranes NECK: No tracheal deviation, full range of motion. CARDIOVASCULAR: S1 and S2 present. No murmurs, rubs, or gallops. Heart monitor present on sternal chest wall. PULMONARY: Chest is clear to auscultation, no wheezing, rhonchi, or crackles. ABDOMEN: Soft, nontender, nondistended. No palpable organomegaly. MUSCULOSKELETAL: No apparent joint swelling and deformities. EXTREMITIES: No apparent cyanosis, clubbing. No pedal edema. NEUROLOGICAL: Alert and oriented. Gross neurological examination with no apparent focal deficits. SKIN: No apparent rashes. ER FINDINGS: Labs significant for WBC 3.4, hemoglobin 13.9, sodium 139, potassium 4.1, BUN 15, creatinine 0.78, glucose 132, troponin <0.012 EKG independently interpreted showed sinus rhythm, heart rate of 66, QTc 420, no ST segment elevation or depression seen, nonspecific T-wave abnormalities. Chest x-ray done independently interpreted showed no acute cardiopulmonary process. Assessment and Plan: In summary, Patient is a 64-year-old male with a PMH of recent CVA (believed to be cardioembolic, currently on Eliquis) and UT, nonischemic systolic CHF EF 25 to 30%, COPD, and GERD presenting with atypical chest pain. #Atypical chest pain EKG without ST depressions or elevations, nonspecific T wave abnormalities -trend troponins, initial <0.012 HbA1c 5.6, lipid panel WNL, TSH WNL within the last 2 months -given aspirin 325, resume 81mg qd -Continue atorvastatin 40 mg daily continue cardiac monitoring -Cardiology consulted Chronic Medical Conditions #CHF EF 25 to 30% #CAD #Essential hypertension #A-fib #Anxiety/Depression #COPD Resume home medication DVT ppx: Eliquis 5 mg twice daily Code status: Full code F: P.o. E: Replete as needed N: Heart healthy diet A: Ambulatory Anticipated discharge place: Home Anticipated discharge time: Tomorrow Dictation was produced using [employer] dictation software. Please excuse any grammatical, word or spelling errors. Past Medical History Past Medical History: Atrial Fibrillation, Asthma, Heart Failure, COPD, CVA/TIA, Eye Disorder, GERD/Reflux, Pneumonia Additional Past Medical History / Comment(s): COVID 02/21, chronic stomach pain, IBS, fluid too thin bilateral eyes/poor vision, pneumonias. heart cath no stents, EF 25/30% Last Myocardial Infarction Date:: 04/22/24 History of Any Multi-Drug Resistant Organisms: None Reported Past Surgical History: Orthopedic Surgery Additional Past Surgical History / Comment(s): L leg injury with surgery/hardw are. Past Anesthesia/Blood Transfusion Reactions: No Reported Reaction Past Psychological History: Anxiety, Depression Smoking Status: Former smoker Past Alcohol Use History: None Reported Past Drug Use History: None Reported - Past Family History Father Family Medical History: Cancer Additional Family Medical History / Comment(s): Father of bone cancer Mother Family Medical History: CVA/TIA Additional Family Medical History / Comment(s): Mother is 78yrs old and has had several strokes. Medications and Allergies Home Medications Medication Instructions Recorded Confirmed Type Atorvastatin [Lipitor] 40 mg PO DAILY 30 Days #30 tab 05/10/24 07/07/24 Rx Dapagliflozin Propanediol [Farxiga] 10 mg PO DAILY 30 Days #30 tab 05/10/24 07/07/24 Rx Gabapentin [Neurontin] 100 mg PO HS 06/12/24 07/07/24 History ALPRAZolam [Xanax] 0.5 mg PO TID PRN 06/13/24 07/07/24 History Albuterol Sulfate [Albuterol 2 puff INHALATION RT-Q4H PRN 06/13/24 07/07/24 History Sulfate Hfa] Apixaban [Eliquis] 5 mg PO BID 06/13/24 07/07/24 History Aspirin 81 mg PO DAILY #30 tab 06/13/24 07/07/24 Rx FLUoxetine HCL [PROzac] 20 mg PO DAILY 06/13/24 07/07/24 History Metoprolol Succinate (ER) [Toprol 25 mg PO DAILY 06/13/24 07/07/24 History XL] lisinopriL [Zestril] 5 mg PO DAILY tab 06/13/24 07/07/24 Rx Allergies Allergy/AdvReac Type Severity Reaction Status Date / Time codeine Allergy Rash/Hives Verified 07/07/24 19:47 amoxicillin AdvReac Nausea Verified 07/07/24 19:47 azithromycin [From Zithromax] AdvReac Nausea Verified 07/07/24 19:47 divalproex sodium AdvReac Chest Pain Verified 07/07/24 19:47 [From Depakote] Penicillins AdvReac Nausea Verified 07/07/24 19:47 Physical Exam Vitals: Vital Signs Temp Pulse Resp BP Pulse Ox 07/07/24 17:19 98.6 F 65 18 122/78 99 Intake and Output 07/07/24 07/07/24 07/07/24 06:59 14:59 22:59 Other: Weight 74.843 kg Results CBC & Chem 7: 07/07/24 17:45 07/07/24 17:45 Labs: Abnormal Lab Results - Last 24 Hours (Table) 07/07/24 07/07/24 Range/Units 17:45 17:45 WBC 3.4 L (3.8-10.6) k/uL Neutrophils # 1.2 L (1.3-7.7) k/uL Glucose 132 H (74-99) mg/dL
[2024-07-08 02:41] LABS: Basophils % (A) 1 %; Eosinophils # (A) 0.1 k/uL (0-0.7); Eosinophils % (A) 3 %; HCT 41.1 % (39.0-53.0); Lymphocytes # (A) 1.7 k/uL (1.0-4.8); Lymphocytes % (A) 41 %; MCH 29.8 pg (25.0-35.0); MCHC 31.7 g/dL (31.0-37.0); Mean Platelet Volume 7.9; Monocytes # (A) 0.4 k/uL (0-1.0); Monocytes % (A) 11 %; Neutrophils # (A) 1.8 k/uL (1.3-7.7); Neutrophils % (A) 43 %; Platelet Count 190 k/uL (150-450); RBC 4.37 m/uL (4.30-5.90); RDW 13.2 % (11.5-15.5); WBC 4.2 k/uL (3.8-10.6)
[2024-07-08 02:45] LABS: Potassium 4.3 mmol/L (3.5-5.1)
[2024-07-08 02:46] LABS: African American GFR (CKD) >90 (>60 ml/min/1.73 sqM); Anion Gap 7 mmol/L; Blood Urea Nitrogen 16 mg/dL (9-20); Calcium 8.6 mg/dL (8.4-10.2); Carbon Dioxide 27 mmol/L (22-30); Chloride 104 mmol/L (98-107); Glucose 99 mg/dL (74-99); Non-African American GFR(CKD) >90 (>60 ml/min/1.73 sqM); Sodium 138 mmol/L (137-145)
[2024-07-08 07:44] VITALS: BP 107/65; RESP 20; TEMP 97.5
[2024-07-08] MEDS: DAPAGLIFLOZIN PROPANEDIOL 10 MG TABLET PO SCH (08:22)
[2024-07-08] MEDS: ATORVASTATIN 40 MG TAB PO SCH (08:22)
[2024-07-08] MEDS: FLUoxetine HCL 20 MG CAP PO SCH (08:22)
[2024-07-08] MEDS: lisinopriL 5 MG TAB PO SCH (08:22)
[2024-07-08] MEDS: ASPIRIN 81 MG PO SCH (08:22)
[2024-07-08] MEDS: METOPROLOL SUCCINATE (ER) 25 MG TAB.ER.24H PO SCH (08:23)
[2024-07-08] MEDS ORDERED: ASPIRIN 325 MG TAB PO SCH (09:00)
[2024-07-08 09:32] VITALS: PULSE 70
--- NOTE | 2024-07-08 09:51 | P.CRDCN ---
History of Present Illness Consult date: 07/08/24 Consult reason: chest pain History of present illness: This is a 64-year-old male with past medical history of ADHD, previous alcohol and drug use since quit, borderline hypertension, recent CVA, nonischemic cardiomyopathy with EF 25 to 30%, COPD, GERD. Patient follows with a printed circuit boards solder leveler at [place]. He had a recent hospitalization at [facility] in June at which time he was admitted for headache. Apparently the right MCA CVA was diagnosed in [facility] in April,. He has also had hospitalizations at [facility] as well for recurrent mental status changes and and was discharged to rehab. Patient then had a another hospitalization at [facility]. Patient now presents to the hospital with shoulder pain and shoulder blade pain that started yesterday on the right side. He states that similar to an heart attack that he had with COVID. Upon review of his records, patient did not have a heart attack as he thought but had elevated enzymes secondary to COVID. Blood pressure 107/65, heart rate 58, pulse ox 95% on room air. Patient states that he currently has an event monitor in place from his primary printed circuit boards solder leveler. -EKG: Sinus rhythm no acute ST changes. -Chest x-ray: No acute process -Laboratory studies: CBC, INR, CMP unremarkable. Troponin negative x 3. -Home cardiac medications: Eliquis 5 mg twice daily, aspirin 81 mg daily, atorvastatin 40 mg daily, Farxiga 10 mg daily, lisinopril 5 mg daily, metoprolol succinate 25 mg daily -Event monitor performed June 2024, 30-day, was incompleted and only had 5 hours of information. Information did show sinus rhythm. -Cardiac catheterization performed by Dr. Darling on 04/19/2021 revealed normal coronary arteries. Nonischemic cardiomyopathy. -Echocardiogram performed 04/2021: EF 30 to 35% with mild concentric left ventricular hypertrophy, moderate global hypokinesis of the LV, mild mitral regurgitation and mild tricuspid regurgitation. Review Of Systems: At the time of my exam: CONSTITUTIONAL: Denies fever or chills. HEENT: Denies blurred vision, vision changes, or eye pain. Denies hemoptysis CARDIOVASCULAR: Denies chest pain. Denies orthopnea. Denies PND. Denies palpitations RESPIRATORY: Denies shortness of breath. GASTROINTESTINAL: Denies abdominal pain. Denies nausea or vomiting. HEMATOLOGIC: Denies bleeding disorders. GENITOURINARY: Denies any blood in urine. SKIN: Denies puritis. Denies rash. Physical examination: Gen: This is a 64-year-old male in no acute distress VS: reviewed HEENT: Head is atraumatic, normocephalic. Pupils equal, round. Sclerae is anicteric. NECK: Supple. No JVD. LUNGS: Clear to auscultation. No wheezes or rhonchi. No intercostal retractions. HEART: Regular rate and rhythm. No murmur. ABDOMEN: Soft No tenderness. EXTREMITIES: No pedal edema. No calf tenderness. NEUROLOGICAL: Patient is awake, alert and oriented x3. Assessment: Atypical chest pain, acute coronary syndrome ruled out Right shoulder pain History of nonischemic cardiomyopathy Recent CVA COPD GERD Patient does not have history of previous ID. He had negative cardiac cath. Plan: Resume patient's home cardiac medications No further cardiac workup at this time Patient to follow-up with his primary printed circuit boards solder leveler in 1 to 2 weeks. Cardiology will sign off this case and follow on an as-needed basis. Please reconsult for any new concerns. Patient may follow-up in the office in one to 2 weeks. Thank you kindly for this consultation. Nurse practitioner note has been reviewed, I agree with documented findings and plan of care. Patient was seen and examined. Past Medical History Past Medical History: Atrial Fibrillation, Asthma, Heart Failure, COPD, CVA/TIA, Eye Disorder, GERD/Reflux, Pneumonia Additional Past Medical History / Comment(s): COVID 02/21, chronic stomach pain, IBS, fluid too thin bilateral eyes/poor vision, pneumonias. heart cath no stents, EF 25/30% Last Myocardial Infarction Date:: 04/22/24 History of Any Multi-Drug Resistant Organisms: None Reported Past Surgical History: Orthopedic Surgery Additional Past Surgical History / Comment(s): L leg injury with surgery/hardware. Past Anesthesia/Blood Transfusion Reactions: No Reported Reaction Past Psychological History: Anxiety, Depression Smoking Status: Former smoker Past Alcohol Use History: None Reported Past Drug Use History: None Reported - Past Family History Father Family Medical History: Cancer Additional Family Medical History / Comment(s): Father of bone cancer Mother Family Medical History: CVA/TIA Additional Family Medical History / Comment(s): Mother is 78yrs old and has had several strokes. Medications and Allergies Home Medications Medication Instructions Recorded Confirmed Type Atorvastatin [Lipitor] 40 mg PO DAILY 30 Days #30 tab 05/10/24 07/07/24 Rx Dapagliflozin Propanediol [Farxiga] 10 mg PO DAILY 30 Days #30 tab 05/10/24 0 07/07/24 Rx Gabapentin [Neurontin] 100 mg PO HS 06/12/24 07/07/24 History ALPRAZolam [Xanax] 0.5 mg PO TID PRN 06/13/24 07/07/24 History Albuterol Sulfate [Albuterol 2 puff INHALATION RT-Q4H PRN 06/13/24 07/07/24 History Sulfate Hfa] Apixaban [Eliquis] 5 mg PO BID 06/13/24 07/07/24 History Aspirin 81 mg PO DAILY #30 tab 06/13/24 07/07/24 Rx FLUoxetine HCL [PROzac] 20 mg PO DAILY 06/13/24 07/07/24 History Metoprolol Succinate (ER) [Toprol 25 mg PO DAILY 06/13/24 07/07/24 History XL] lisinopriL [Zestril] 5 mg PO DAILY tab 06/13/24 07/07/24 Rx Allergies Allergy/AdvReac Type Severity Reaction Status Date / Time codeine Allergy Rash/Hives Verified 07/07/24 19:47 amoxicillin AdvReac Nausea Verified 07/07/24 19:47 azithromycin [From Zithromax] AdvReac Nausea Verified 07/07/24 19:47 divalproex sodium AdvReac Chest Pain Verified 07/07/24 19:47 [From Depakote] Penicillins AdvReac Nausea Verified 07/07/24 19:47 Physical Exam Vitals: Vital Signs Temp Pulse Pulse Resp BP BP Pulse Ox 07/08/24 02:04 97.9 F 57 L 15 121/77 95 07/07/24 21:23 55 L 18 115/77 99 07/07/24 20:00 97.8 F 57 L 15 123/80 100 07/07/24 17:19 98.6 F 65 18 122/78 99 Intake and Output 07/07/24 07/08/24 07/08/24 22:59 06:59 14:59 Other: # Voids 2 Weight 74.843 kg Results 07/08/24 01:30 07/08/24 01:30 Cardiac Enzymes 07/07/24 07/07/24 07/07/24 Range/Units 17:45 17:45 23:53 AST 26 (17-59) U/L Troponin I <0.012 <0.012 (0.000-0.034) ng/mL 07/08/24 Range/Units 01:30 AST (17-59) U/L Troponin I <0.012 (0.000-0.034) ng/mL Coagulation 07/07/24 Range/Units 17:45 PT 10.4 (10.0-12.5) sec APTT 23.8 (22.0-30.0) sec CBC 07/07/24 07/08/24 Range/Units 17:45 01:30 WBC 3.4 L 4.2 (3.8-10.6) k/uL RBC 4.68 4.37 (4.30-5.90) m/uL Hgb 13.9 13.0 (13.0-17.5) gm/dL Hct 43.6 41.1 (39.0-53.0) % Plt Count 202 190 (150-450) k/uL Comprehensive Metabolic Panel 07/07/24 07/08/24 Range/Units 17:45 01:30 Sodium 139 138 (137-145) mmol/L Potassium 4.1 4.3 (3.5-5.1) mmol/L Chloride 106 104 (98-107) mmol/L Carbon Dioxide 23 27 (22-30) mmol/L BUN 15 16 (9-20) mg/dL Creatinine 0.78 0.77 (0.66-1.25) mg/dL Glucose 132 H 99 (74-99) mg/dL Calcium 8.6 8.6 (8.4-10.2) mg/dL AST 26 (17-59) U/L ALT 31 (4-49) U/L Alkaline Phosphatase 82 (38-126) U/L Total Protein 6.7 (6.3-8.2) g/dL Albumin 3.8 (3.5-5.0) g/dL Current Medications Generic Name Dose Route Start Last Admin Trade Name Freq PRN Reason Stop Dose Admin Acetaminophen 650 mg 07/07/24 22:15 Acetaminophen Tab 325 Mg Tab PO Q6HR PRN Mild Pain or Fever > 100.5 Albuterol Sulfate 2.5 mg 07/07/24 19:37 Albuterol Nebulized 2.5 Mg/3 Ml INHALATION RT-Q4H PRN Shortness Of Breath Alprazolam 0.5 mg 07/07/24 19:37 Alprazolam 0.5 Mg Tab PO TID PRN Anxiety Apixaban 5 mg 07/07/24 21:00 07/07/24 20:08 Apixaban 5 Mg Tab PO 5 mg BID [facility] Administration Protocol Aspirin 81 mg 07/08/24 09:00 Aspirin 81 Mg PO DAILY [facility] Atorvastatin Calcium 40 mg 07/08/24 09:00 Atorvastatin 40 Mg Tab PO DAILY [facility] Dapagliflozin 10 mg 07/08/24 09:00 Dapagliflozin Propanediol 10 Mg Tablet PO DAILY [facility] Fluoxetine HCl 20 mg 07/08/24 09:00 Fluoxetine Hcl 20 Mg Cap PO DAILY [facility] Gabapentin 100 mg 07/07/24 21:00 07/07/24 20:08 Gabapentin 100 Mg Cap PO 100 mg HS [facility] Administration Lisinopril 5 mg 07/08/24 09:00 Lisinopril 5 Mg Tab PO DAILY [facility] Metoprolol Succinate 25 mg 07/08/24 09:00 Metoprolol Succinate (Er) 25 Mg Tab.Er.24h PO DAILY [facility] Nitroglycerin 0.4 mg 07/07/24 18:58 Nitroglycerin Sl Tabs 0.4 Mg Tab SUBLINGUAL Q5M PRN Chest Pain Intake and Output 07/07/24 07/08/24 07/08/24 22:59 06:59 14:59 Other: # Voids 2 Weight 74.843 kg 07/08/24 01:30 07/08/24 01:30
--- NOTE | 2024-07-08 10:04 | P.DS ---
Providers Date of admission: 07/07/24 19:00 Expected date of discharge: 07/08/24 Attending physician: Ildefonso Damon MD Consults: 07/07/24 18:58 Consult Physician Urgent Consulting Provider: Jaguar Mendoza Consult Reason/Comments: chest pain Do you want consulting provider notified?: Yes Primary care physician: Deny Barrera Hospital Course: Discharge Diagnosis: Chest pain, acute coronary event ruled out History of CVA, believed to be cardioembolic on anticoagulation with Eliquis Nonischemic cardiomyopathy with previous reported EF of 25 to 30% COPD GERD Hospital Course: Patient is a very pleasant 64-year-old male with a past medical history of recent CVA (believed to be cardioembolic, currently on Eliquis), nonischemic cardiomyopathy, chronic systolic HF with previous reported EF 25 to 30%, COPD, and GERD. He presented to the emergency department on 07/07/2024 with a chief c omplaint of right-sided chest/shoulder pain. Upon arrival to our facility, patient underwent evaluation in the emergency department. Vital signs upon arrival show blood pressure 122/78, heart rate 65, respiratory rate 18, temp 98.6 F, and SpO2 of 99% on room air. EKG was completed showing normal sinus rhythm at 66 bpm with no noted T wave or ST abnormality showing no signs of acute ischemia upon personal review and interpretation. Chest x-ray negative for acute cardiopulmonary process. Labs completed and reviewed. CBC showing leukopenia with WBC count of 3.4 otherwise normal findings. BMP leukopenia with WBC count of 3.4 otherwise normal findings. BMP unremarkable. Blood glucose 132. Magnesium 2.0. Liver profile unremarkable. Troponin was negative at less than 0.012. Patient was admitted under our services with consultation to cardiology. Troponins trended all negative at less than 0.012. Repeat morning labs unremarkable. Patient reported full resolution of previous reported right sided chest/shoulder pain after receiving aspirin in the emergency department. He was evaluated by cardiology stating no need for repeat echocardiogram or further cardiac workup at this time recommending patient resume daily home cardiac medications and follow-up outpatient with his primary gardener florist in 1 to 2 weeks. Patient denies having any further complaints, concerns, or quest ions at this time. He is medically optimized for discharge. Patient to follow- up outpatient with PCP Dr. Triana in 1 to 2 days and with gardener florist Dr. Arana in 1 week. Physical examination: Patient seen and examined at bedside Vital signs reviewed and stable. General: Nontoxic, no distress and appears stated age. Derm: Skin warm and dry, normal coloration for ethnicity. Head: Atraumatic, normocephalic and symmetric. Eyes: EOM's intact, no lid lag, and anicteric sclera Mouth: no lip lesions, mucus membranes moist Cardiovascular: regular rate and rhythm with normal S1S2, no murmur, positive posterior tibial pulses bilaterally, and cap refill < 2 seconds. Lungs: Respirations even, regular, and unlabored on room air. Lungs CTA bilatera lly, no rhonchi, no rales, no wheezing, and no accessory muscle usage. Abdominal: soft, nontender to palpation, no guarding, no appreciable organomegaly Ext: ROM intact. No gross muscle atrophy, no edema, no contractures Neuro: Speech clear, face symmetrical and CN II-XII grossly intact with no noted focal neuro deficits Psych: Alert and oriented to person, place, time, and situation. Appropriate and pleasant affect. A total of 33 minutes of time were spent preparing this complex discharge summary. Pt was discharged on 07/08/2024 at 10:03 AM. Patient was seen independently by Nurse Practitioner. This document was prepared using [employer] dictation software. Please allow for errors in tile trimmer while rare they do occur. Abhay Oates NP rendered care for this patient independently, reviewed the findings and plan as documented in the note above. I did not physically speak with or examine the patient on this date. Patient Condition at Discharge: Stable Plan - Discharge Summary New Discharge Prescriptions: Continue Metoprolol Succinate (ER) [Toprol XL] 25 mg PO DAILY FLUoxetine HCL [PROzac] 20 mg PO DAILY Albuterol Sulfate [Albuterol Sulfate Hfa] 2 puff INHALATION RT-Q4H PRN PRN Reason: Shortness Of Breath Dapagliflozin Propanediol [Farxiga] 10 mg PO DAILY 30 Days #30 tab Atorvastatin [Lipitor] 40 mg PO DAILY 30 Days #30 tab Gabapentin [Neurontin] 100 mg PO HS ALPRAZolam [Xanax] 0.5 mg PO TID PRN PRN Reason: Anxiety Apixaban [Eliquis] 5 mg PO BID Aspirin 81 mg PO DAILY #30 tab lisinopriL [Zestril] 5 mg PO DAILY tab Discharge Medication List Atorvastatin [Lipitor] 40 mg PO DAILY 30 Days #30 tab 05/10/24 [Rx] Dapagliflozin Propanediol [Farxiga] 10 mg PO DAILY 30 Days #30 tab 05/10/24 [Rx] Gabapentin [Neurontin] 100 mg PO HS 06/12/24 [History] ALPRAZolam [Xanax] 0.5 mg PO TID PRN 06/13/24 [History] Albuterol Sulfate [Albuterol Sulfate Hfa] 2 puff INHALATION RT-Q4H PRN 06/13/24 [History] Apixaban [Eliquis] 5 mg PO BID 06/13/24 [History] Aspirin 81 mg PO DAILY #30 tab 06/13/24 [Rx] FLUoxetine HCL [PROzac] 20 mg PO DAILY 06/13/24 [History] Metoprolol Succinate (ER) [Toprol XL] 25 mg PO DAILY 06/13/24 [History] lisinopriL [Zestril] 5 mg PO DAILY tab 06/13/24 [Rx] Follow up Appointment(s)/Referral(s): Jarrett Arana DO [STAFF PHYSICIAN] - 07/15/24 2:30 pm Deny Barrera MD [Primary Care Provider] - 1-2 days Patient Instructions/Handouts: Chest Pain (DC) Activity/Diet/Wound Care/Special Instructions: Activity: As tolerated. Take breaks as needed. Diet: Heart healthy and carb consistent diet. Avoid salts, or foods with hidden salts such as canned or boxed foods and frozen dinners. Extra salt makes your heart work harder and traps the fluid in your body for longer. Special Instructions: Take all of your medications as directed and remember to keep all of your doctor's appointments and follow-up as needed. Thank you for allowing us to participate in your care, it was truly a pleasure having you for our patient!!! Discharge Disposition: HOME SELF-CARE
== END 2024-07-08 10:37 | disposition home or self-care (01) ==
LOC: EC 17:13 → 6NMEDSUR 19:00
PROVIDERS: ADMIT Family Medicine; ATTEND Family Medicine
DX: R07.89 Other chest pain (principal); M25.511 Pain in right shoulder; I25.10 Atherosclerotic heart disease of native coronary artery without angina pectoris; I48.91 Unspecified atrial fibrillation; J44.89 Other specified chronic obstructive pulmonary disease; I11.0 Hypertensive heart disease with heart failure; I50.22 Chronic systolic (congestive) heart failure; K21.9 Gastro-esophageal reflux disease without esophagitis; F41.9 Anxiety disorder, unspecified; F32.A Depression, unspecified; I42.8 Other cardiomyopathies; Z86.16 Personal history of COVID-19; Z86.73 Personal history of transient ischemic attack (TIA), and cerebral infarction without residual deficits; Z87.891 Personal history of nicotine dependence; Z79.01 Long term (current) use of anticoagulants; Z79.82 Long term (current) use of aspirin; Z79.84 Long term (current) use of oral hypoglycemic drugs; Z79.899 Other long term (current) drug therapy; Z88.0 Allergy status to penicillin; Z88.1 Allergy status to other antibiotic agents; Z88.5 Allergy status to narcotic agent
CPT/HCPCS: 99285; 36415; 93005; 80053; 80048; 83735; 84484 ×2; 85025 ×2; 85610; 85730; 71046; G0378 ×2

== ENCOUNTER → 2024-08-03 | Outpatient (CLI) | payer OTHER ==
[2024-08-03 14:52] LABS: African American GFR (CKD) >90 (>60 ml/min/1.73 sqM); Blood Urea Nitrogen 27 mg/dL (9-20); Non-African American GFR(CKD) 80 (>60 ml/min/1.73 sqM)
--- NOTE | 2024-08-03 16:30 | CT ---
EXAMINATION TYPE: CT angio chest DATE OF EXAM: 08/03/2024 COMPARISON: None CLINICAL INDICATION: Male, 64 years old with history of R07.89 other chest pain; PHH, History of bloo d clot and other chest pain TECHNIQUE: CTA scan of the thorax is performed without and with IV Contrast, patient injected with 100 ml mL of Isovue 370, pulmonary embolism protocol. MIP images are created and reviewed. CT DLP: [address] CTDI: mGy Automated exposure control for dose reduction was used. FINDINGS: LUNGS: The lungs are grossly clear, there is no concerning parenchymal mass or nodule identified. T here is no pleural effusion or pneumothorax seen. The tracheobronchial tree is patent. MEDIASTINUM: There is satisfactory enhancement of the pulmonary artery and its branches, there is no CT evidence for pulmonary embolism. There are no greater than 1 cm hilar or mediastinal lymph nodes. No pericardial effusion is seen. OTHER: No additional significant abnormality is seen. IMPRESSION: 1. NO EVIDENCE OF PULMONARY EMBOLISM. 2. NO ACUTE CARDIOPULMONARY DISEASE. [facility], , 08/03/2024 4:28 PM
== END | disposition home or self-care (01) ==
LOC: RADCTMAIN 13:13
PROVIDERS: ATTEND Family Medicine
DX: R07.89 Other chest pain (principal)
CPT/HCPCS: 82565; 84520; 71275; 36415; Q9967

== ENCOUNTER 2024-08-29 18:08 | Observation (INO) | payer OTHER ==
--- NOTE | 2024-08-29 18:41 | ED ---
General Adult HPI - General Chief complaint: Weakness Stated complaint: Weakness Time Seen by Provider: 08/29/24 18:14 Source: patient, EMS, RN notes reviewed Mode of arrival: EMS Limitations: no limitations - History of Present Illness Initial comments: Patient is a 64-year-old male presenting to the emergency department with concerns for increased weakness. Last known well was last night. Symptoms have been persistent since he woke this morning. Patient feels off balance. Patient feels more weak than normal. Patient also feels lightheaded. Patient has some minimal chest tightness. Patient does have history of MA and large stroke in April when he was in [place]. Patient is on Eliquis now. This was related to a large thrombus in his left ventricle. - Related Data Home Medications Medication Instructions Recorded Confirmed Gabapentin [Neurontin] 100 mg PO HS 06/12/24 07/07/24 ALPRAZolam [Xanax] 0.5 mg PO TID PRN 06/13/24 07/07/24 Albuterol Sulfate [Albuterol 2 puff INHALATION RT-Q4H PRN 06/13/24 07/07/24 Sulfate Hfa] Apixaban [Eliquis] 5 mg PO BID 06/13/24 07/07/24 FLUoxetine HCL [PROzac] 20 mg PO DAILY 06/13/24 07/07/24 Metoprolol Succinate (ER) [Toprol 25 mg PO DAILY 06/13/24 07/07/24 XL] Previous Rx's Medication Instructions Recorded Atorvastatin [Lipitor] 40 mg PO DAILY 30 Days #30 tab 05/10/24 Dapagliflozin Propanediol [Farxiga] 10 mg PO DAILY 30 Days #30 tab 05/10/24 Aspirin 81 mg PO DAILY #30 tab 06/13/24 lisinopriL [Zestril] 5 mg PO DAILY tab 06/13/24 Allergies Allergy/AdvReac Type Severity Reaction Status Date / Time codeine Allergy Rash/Hives Verified 08/29/24 18:22 amoxicillin AdvReac Nausea Verified 08/29/24 18:22 azithromycin [From Zithromax] AdvReac Nausea Verified 08/29/24 18:22 divalproex sodium AdvReac Chest Pain Verified 08/29/24 18:22 [From Depakote] Penicillins AdvReac Nausea Verified 08/29/24 18:22 Review of Systems ROS Statement: Those systems with pertinent positive or pertinent negative responses have been documented in the HPI. ROS Other: All systems not noted in ROS Statement are negative. Constitutional: Denies: fever Eyes: Denies: eye pain ENT: Denies: ear pain Respiratory: Denies: cough Cardiovascular: Reports: as per HPI, chest pain Gastrointestinal: Denies: abdominal pain Neurological: Reports: as per HPI, weakness. Denies: headache, confusion Past Medical History Past Medical History: Atrial Fibrillation, Asthma, Heart Failure, COPD, CVA/TIA, Eye Disorder, GERD/Reflux, Pneumonia Additional Past Medical History / Comment(s): COVID 02/21, chronic stomach pain, IBS, fluid too thin bilateral eyes/poor vision, pneumonias. heart cath no stents, EF 25/30% Last Myocardial Infarction Date:: 04/22/24 History of Any Multi-Drug Resistant Organisms: None Reported Past Surgical History: Orthopedic Surgery Additional Past Surgical History / Comment(s): L leg injury with surgery/hardware. Past Anesthesia/Blood Transfusion Reactions: No Reported Reaction Past Psychological History: Anxiety, Depression Smoking Status: Former smoker Past Alcohol Use History: None Reported Past Drug Use History: None Reported - Past Family History Father Family Medical History: Cancer Additional Family Medical History / Comment(s): Father of bone cancer Mother Family Medical History: CVA/TIA Additional Family Medical History / Comment(s): Mother is 78yrs old and has had several strokes. General Exam Limitations: no limitations General appearance: alert Head exam: Present: normocephalic Eye exam: Present: normal appearance, PERRL, EOMI ENT exam: Present: normal oropharynx Neck exam: Present: normal inspection Respiratory exam: Present: normal lung sounds bilaterally Cardiovascular Exam: Present: regular rate, normal rhythm GI/Abdominal exam: Present: soft. Absent: tenderness Extremities exam: Present: normal inspection Neurological exam: Present: alert, oriented X3. Absent: CN II-XII intact (Except for left facial weakness and decreased sensation) Expanded Cranial nerves: EOM's Intact: Normal, Facial Sensation: Abnormal Left, Facial Palsy with Forehead Movement: Abnormal Left (Left facial weakness. Normal forehead movement. States noon today) Cerebellar function: Finger to Nose: Normal Sensory exam: Upper Extremity Light Touch: Normal, Lower Extremity Light Touch: Normal Motor strength exam: RUE: 5, LUE: 5, RLE: 5, LLE: 4 (States new today) Eye Response: (4) open spontaneously Motor Response: (6) obeys commands Verbal Response: (5) oriented Psychiatric exam: Present: normal affect, normal mood Skin exam: Present: normal color Course Vital Signs 08/29/24 08/29/24 18:19 19:59 Temperature 97.8 F 98.1 F Pulse Rate 54 L 54 L Respiratory 18 20 Rate Blood Pressure 97/67 119/86 O2 Sat by Pulse 99 98 Oximetry EKG Findings - EKG Results: EKG: interpreted by ERMD (Lateral T wave inversion), sinus rhythm, normal axis, normal QRS EKG shows: bradycardia Medical Decision Making - Medical Decision Making Was pt. sent in by a medical professional or institution ([facility], DESIGN MAKER, urgent care, hospital, or [facility]...) When possible be specific @ -No Did you speak to anyone other than the patient for history (EMS, parent, family, police, friend...)? What history was obtained from this source @ -No Did you review nursing and triage notes (agree or disagree)? Why? @ -I reviewed and agree with nursing and triage notes Were old charts reviewed (outside hosp., previous admission, EMS record, old EKG, old radiological studies, urgent care reports/EKG's, [facility] records)? Report findings @ -No old charts were reviewed Differential Diagnosis (chest pain, altered mental status, abdominal pain women, abdominal pain men, vaginal bleeding, weakness, fever, dyspnea, syncope, headache, dizziness, GI bleed, back pain, seizure, CVA, palpatations, mental health, musculoskeletal)? @ -Differential Weakness: Hypoglycemia, shock, sepsis, hyponatremia, anemia, infection, MA, ETOH, adverse medicine reaction, overdose, stroke, this is not meant to be an all-inclusive list. EKG interpreted by me (3pts min.). @ -As above X-rays interpreted by me (1pt min.). @ -Chest x-ray shows no acute process CT interpreted by me (1pt min.). @ -CT scan of the brain shows old infarct U/S interpreted by me (1pt. min.). @ -None done What testing was considered but not performed or refused? (CT, X-rays, U/S, lab s)? Why? @ -None What meds were considered but not given or refused? Why? @ -None Did you discuss the management of the patient with other professionals (professionals i.e. , PA, DESIGN MAKER, lab, RT, psych nurse, social media editor, molding utility worker, teacher, control officer manager, case making machine operator)? Give summary @ -Case was discussed with Dr. Oakley who will admit covering Dr. Triana Was smoking cessation discussed for >3mins.? @ -No Was critical care preformed (if so, how long)? @ -No Were there social determinants of health that impacted care today? How? (Homelessness, low income, unemployed, alcoholism, drug addiction, transportation, low edu. Level, literacy, decrease access to med. care, [facility], rehab)? @ -No Was there de-escalation of care discussed even if they declined (Discuss DNR or withdrawal of care, Hospice)? DNR status @ -No What co-morbidities impacted this encounter? (DM, HTN, Smoking, COPD, CAD, Cancer, CVA, ARF, Chemo, Hep., AIDS, mental health diagnosis, sleep apnea, morbid obesity)? @ -History of large previous stroke recently Was patient admitted / discharged? Hospital course, mention meds given and route, prescriptions, significant lab abnormalities, going to OR and other pertinent info. @ -Patient presents with mild increased weakness left face and left leg. Workup otherwise unremarkable. There is concern for mild stroke. Patient reevaluated and updated. Patient will be admitted with neuro consult, mission orders written. Undiagnosed new problem with uncertain prognosis? @ -No Drug Therapy requiring intensive monitoring for toxicity (Heparin, Nitro, Insulin, Cardizem)? @ -No Were any procedures done? @ -No Diagnosis/symptom? @ -CVA Acute, or Chronic, or Acute on Chronic? @ -Acute Uncomplicated (without systemic symptoms) or Complicated (systemic symptoms)? @ -Default Side effects of treatment? @ -No Exacerbation, Progression, or Severe Exacerbation? @ -No Poses a threat to life or bodily function? How? (Chest pain, USA, MA, pneumonia, PE, COPD, DKA, ARF, appy, cholecystitis, CVA, Diverticulitis, Homicidal, Suicidal, threat to staff... and all critical care pts) @ -Threat to neurological function - Lab Data Result diagrams: 08/29/24 19:01 08/29/24 19:01 Lab Results 08/29/24 08/29/24 08/29/24 Range/Units 19:01 19: 19:01 WBC 4.84 (4.50-10.00) 10*3/uL RBC 4.35 L (4.40-5.60) 10*6/uL Hgb 13.6 (13.0-17.0) g/dL Hct 39.1 L (39.6-50.0) % MCV 89.9 (80.0-97.0) fL MCH 31.3 (27.0-32.0) pg MCHC 34.8 (32.0-37.0) g/dL Plt Count 161 (140-440) 10*3/uL MPV 10.1 (9.5-12.2) fL Immature Gran % (Auto) 0.2 % Neutrophils % 47.5 % Lymphocytes % 36.6 % Monocytes % 13.4 % Eosinophils % 1.9 % Basophils % 0.4 % Immature Gran # 0.01 (0.00-0.04) 10*3/uL Neutrophils # 2.30 (1.80-7.70) 10*3/uL Lymphocytes # 1.77 (0.90-5.00) 10*3/uL Monocytes # 0.65 (0.20-1.00) 10*3/uL Eosinophils # 0.09 (0.04-0.35) 10*3/uL Basophils # 0.02 (0.00-0.10) 10*3/uL PT 11.2 (10.0-12.5) sec INR 1.0 (<1.2) APTT 23.4 (22.0-30.0) sec Sodium 142 (137-145) mmol/L Potassium 4.1 (3.5-5.1) mmol/L Chloride 109 H (98-107) mmol/L Carbon Dioxide 24 (22-30) mmol/L Anion Gap 9 mmol/L BUN 22 H (9-20) mg/dL Creatinine 0.93 (0.66-1.25) mg/dL Est GFR (CKD-EPI)AfAm >90 (>60 ml/min/1.73 sqM) Est GFR (CKD-EPI)NonAf 88 (>60 ml/min/1.73 sqM) Glucose 94 (74-99) mg/dL Calcium 9.1 (8.4-10.2) mg/dL Total Bilirubin 0.7 (0.2-1.3) mg/dL AST 38 (17-59) U/L ALT 87 H (4-49) U/L Alkaline Phosphatase 75 (38-126) U/L Creatine Kinase 54 L (55-170) U/L Troponin I (0.000-0.034) ng/mL Total Protein 6.5 (6.3-8.2) g/dL Albumin 3.8 (3.5-5.0) g/dL 08/29/24 Range/Units 19:01 WBC (4.50-10.00) 10*3/uL RBC (4.40-5.60) 10*6/uL Hgb (13.0-17.0) g/dL Hct (39.6-50.0) % MCV (80.0-97.0) fL MCH (27.0-32.0) pg MCHC (32.0-37.0) g/dL Plt Count (140-440) 10*3/uL MPV (9.5-12.2) fL Immature Gran % (Auto) % Neutrophils % % Lymphocytes % % Monocytes % % Eosinophils % % Basophils % % Immature Gran # (0.00-0.04) 10*3/uL Neutrophils # (1.80-7.70) 10*3/uL Lymphocytes # (0.90-5.00) 10*3/uL Monocytes # (0.20-1.00) 10*3/uL Eosinophils # (0.04-0.35) 10*3/uL Basophils # (0.00-0.10) 10*3/uL PT (10.0-12.5) sec INR (<1.2) APTT (22.0-30.0) sec Sodium (137-145) mmol/L Potassium (3.5-5.1) mmol/L Chloride (98-107) mmol/L Carbon Dioxide (22-30) mmol/L Anion Gap mmol/L BUN (9-20) mg/dL Creatinine (0.66-1.25) mg/dL Est GFR (CKD-EPI)AfAm (>60 ml/min/1.73 sqM) Est GFR (CKD-EPI)NonAf (>60 ml/min/1.73 sqM) Glucose (74-99) mg/dL Calcium (8.4-10.2) mg/dL Total Bilirubin (0.2-1.3) mg/dL AST (17-59) U/L ALT (4-49) U/L Alkaline Phosphatase (38-126) U/L Creatine Kinase (55-170) U/L Troponin I <0.012 (0.000-0.034) ng/mL Total Protein (6.3-8.2) g/dL Albumin (3.5-5.0) g/dL Disposition Clinical Impression: Cerebrovascular accident (CVA) Disposition: ADMITTED IP TO THIS HOSP Is patient prescribed a controlled substance at d/c from ED?: No Referrals: Deny Barrera MD [Primary Care Provider] - 1-2 days Time of Disposition: 20:21
[2024-08-29 19:16] LABS: Basophils # (A) 0.02 10*3/uL (0.00-0.10); Basophils % (A) 0.4 %; Eosinophils # (A) 0.09 10*3/uL (0.04-0.35); Eosinophils % (A) 1.9 %; HCT 39.1 % (39.6-50.0); HGB 13.6 g/dL (13.0-17.0); Lymphocytes # (A) 1.77 10*3/uL (0.90-5.00); Lymphocytes % (A) 36.6 %; MCH 31.3 pg (27.0-32.0); MCHC 34.8 g/dL (32.0-37.0); MCV 89.9 fL (80.0-97.0); Mean Platelet Volume 10.1 fL (9.5-12.2); Monocytes # (A) 0.65 10*3/uL (0.20-1.00); Monocytes % (A) 13.4 %; Neutrophils % (A) 47.5 %; Platelet Count 161 10*3/uL (140-440); RBC 4.35 10*6/uL (4.40-5.60); RDW 12.4 % (11.5-14.5); WBC 4.84 10*3/uL (4.50-10.00)
--- NOTE | 2024-08-29 19:18 | XR ---
EXAMINATION TYPE: XR chest 2V DATE OF EXAM: 08/29/2024 7:06 PM COMPARISON: Chest radiographs from 07/07/2024. CLINICAL INDICATION: Male, 64 years old with history of altered mental status; [facility] TECHNIQUE: XR chest 2V Frontal and lateral views of the chest. FINDINGS: Lungs/Pleura: There is no evidence of pleural effusion, focal consolidation, or pneumothorax. Pulmonary vascularity: Unremarkable. Heart/mediastinum: Cardiomediastinal silhouette is unremarkable. Musculoskeletal: No acute osseous pathology. IMPRESSION: No acute cardiopulmonary disease/process. [facility], , 08/29/2024 7:16 PM
[2024-08-29 19:31] LABS: Partial Thromboplastin Time 23.4 sec (22.0-30.0); Prothrombin Time 11.2 sec (10.0-12.5)
[2024-08-29 19:43] LABS: ALT 87 U/L (4-49); AST 38 U/L (17-59); African American GFR (CKD) >90 (>60 ml/min/1.73 sqM); Albumin 3.8 g/dL (3.5-5.0); Alkaline Phosphatase 75 U/L (38-126); Anion Gap 9 mmol/L; Blood Urea Nitrogen 22 mg/dL (9-20); Calcium 9.1 mg/dL (8.4-10.2); Carbon Dioxide 24 mmol/L (22-30); Chloride 109 mmol/L (98-107); Creatine Kinase 54 U/L (55-170); Glucose 94 mg/dL (74-99); Non-African American GFR(CKD) 88 (>60 ml/min/1.73 sqM); Potassium 4.1 mmol/L (3.5-5.1); Sodium 142 mmol/L (137-145); Total Bilirubin 0.7 mg/dL (0.2-1.3); Total Protein 6.5 g/dL (6.3-8.2)
--- NOTE | 2024-08-29 19:56 | CT ---
EXAMINATION TYPE: CT brain wo con DATE OF EXAM: 08/29/2024 7:42 PM COMPARISON: 06/20/2014. CLINICAL INDICATION: Male, 64 years old with history of Neuro deficit, acute, stroke suspected, hx of heart attack and stroke- 04/2024 TECHNIQUE: Brain: Axial CT images of the brain were obtained with coronal and sagittal reformats created and rev iewed. Contrast used: None. Oral contrast used: None. CT DLP: 1754.5 mGycm, Automated exposure control for dose reduction was used. FINDINGS: Brain: Extra-axial spaces: No abnormal extra-axial fluid collections. Ventricular system: Within normal limits Cerebral parenchyma: Remote injury of the right temporal parietal and posterior frontal lobe with enc ephalomalacia. No acute intraparenchymal hemorrhage or mass effect. The gunn-white junction is well differentiated. Cerebellum: Unremarkable. Mass effect: No evidence of midline shift. Intracranial vasculature: unremarkable Soft tissues: Normal. Calvarium/osseous structures: No depressed skull fracture. Paranasal sinuses and mastoid air cells: Mild scattered paranasal sinus disease. Visualized orbits: Orbital contents are intact. IMPRESSION: 1. No acute intracranial process. 2. Remote injury of the right temporal parietal and posterior frontal lobe with encephalomalacia. Si milar to 06/20/2014 [facility], , 08/29/2024 7:54 PM
--- NOTE | 2024-08-29 20:03 | CT ---
EXAMINATION TYPE: CT angio head neck DATE OF EXAM: 08/29/2024 7:43 PM COMPARISON: None. CLINICAL INDICATION: Male, 64 years old with history of Neuro deficit, acute, stroke suspected, hx of heart attack and stroke- 04/2024 TECHNIQUE: Axially acquired helical CT angiogram of the head and neck was obtained with contrast. Axi al images are supplemented with 3D reconstructions and MIP images which were post-processed at an in dependent workstation. NASCET criteria used. Contrast used:65 ml mL of Isovue 370 without and with IV Contrast, Oral contrast used: None. CT DLP: 1754.5 mGycm, Automated exposure control for dose reduction was used. FINDINGS: CTA HEAD: No evidence of acute intracranial hemorrhage, mass effect, or midline shift. The ventricles, sulci, a nd cisterns are unremarkable. Encephalomalacia as described on same day CT brain involving the book illustrator ior right frontal lobe right parietal and right temporal lobe. Vertebral arteries: The vertebral arteries are patent. Smaller caliber left dominant and right verteb ral arteries. The left vertebral artery is thought to terminate as a posterior inferior cerebellar ar sammy. Vertebral artery dominance: Right Basilar artery: The basilar artery is intact. The basilar artery bifurcation is normal. Internal Carotid arteries: The cervical, petrous, cavernous and supraclinoid segments are normal. GRETA: Patent with no evidence of aneurysm. ACOM: Present without evidence of aneurysm. MCA: Patent with no evidence of aneurysm. PERMIT COORDINATOR: Patent with no evidence of aneurysm. PCOM: Hypoplastic bilaterally. Dural sinuses: Patent. CTA NECK: Right Carotid System: The common carotid artery and external carotid artery are patent. The carotid bifurcation demonstrate s no evidence of hemodynamically significant stenosis. The remaining portions of the internal carotid artery demonstrate normal size without significant narrowing. Left Carotid System: The common carotid artery and external carotid artery are patent. The carotid bifurcation demonstrate s no evidence of hemodynamically significant stenosis. The remaining portions of the internal carotid artery demonstrate normal size without significant narrowing. Vertebral arteries are patent without evidence hemodynamically significant stenosis. Smaller caliber left dominant right vertebral arteries. The left vertebral artery is thought to terminate as a book illustrator ior inferior cerebellar artery. There is a 2-vessel aortic arch. The origins of the great vessels are patent. No evidence of hemodyna mically significant stenosis. IMPRESSION: 1. No evidence of dissection of the cervical internal carotid arteries or vertebral arteries. 2. No any evidence of significant stenosis at the carotid bifurcations. 3. No evidence of intracranial high-grade stenosis or intracranial aneurysm. 4. Left vertebral artery terminating as posterior inferior cerebellar artery. [facility], , 08/29/2024 8:01 PM
[2024-08-29] MEDS ORDERED: ALPRAZolam 0.5 MG TAB PO PRN (21:32)
[2024-08-29] MEDS: ATORVASTATIN 40 MG TAB PO SCH (21:39)
[2024-08-29] MEDS: ASPIRIN 325 MG TAB PO STA (21:39)
[2024-08-29] MEDS: GABAPENTIN 100 MG CAP PO SCH (21:39)
[2024-08-29] MEDS: lamoTRIgine 100 MG TAB PO SCH (21:40)
--- NOTE | 2024-08-29 21:45 | P.HPIM ---
History of Present Illness H&P Date: 08/29/24 Patient is a 64-year-old male with atrial fibrillation (on Eliquis), CVA, COPD, GERD, CHF (EF in 04/2021 30 to 35%), former smoker, history of meth and cocaine use, anxiety, depression here for evaluation of weakness. Patient reported he has been experiencing generalized weakness with associated lightheadedness and balance disturbances requiring the use of his cane since 9:30am today. He also reported that in the past 3-4 days he has been having uncontrollable jaw clenching. Patient's family at bedside reported that these symptoms were new. He denied chest pain, palpitations, LOC, recent trauma/fall, vision changes, headaches, SOB, prolonged travel, or recent illness. Patient reported having recent history of MA and cardioembolic stroke in April 2024 when he was in [place]. He reported that during that admission, he had bradycardia w/c caused a clot in his left ventricle. He was able to complete subacute rehab and mentions that he has been able to ambulate without assistance and most of his deficits on the left side have disappeared. He also had a recent echo of his heart that said his EF was around 30%. On admission: Vitals: Temp 97.8 F, MT 54, RR 18, BP 97/67, O2 saturation 99% on room air Labs: WBC 4.8, hemoglobin 13.6 sodium 142, potassium 4.1, calcium 9.1, bicarb 24, BUN 22, creatinine 0.9, troponin less than 0.0 12, CK 54. Liver enzymes within normal limits except for ALT 87 slightly elevated. Coagulation panel within normal limits. Imaging: Chest x-ray showed no acute cardiopulmonary process. EKG independently interpreted showed sinus bradycardia with a rate of 54 bpm, normal axis, normal MT interval, intraventricular delay noted in V2, no ST-T changes, good R wave progression, QTc [address] showed no acute intracranial process, with noted remote injury of the right temporal parietal and posterior frontal lobe with encephalomalacia which was similar to imaging on 06/2014. CT angiography of head and neck showed no evidence of dissection of the cervical internal carotid arteries or vertebral arteries, no stenosis significant at carotid bifurcations, no evidence of intracranial high-grade stenosis or aneurysm with left vertebral artery terminating into the posterior inferior cerebellar artery. ED documentation reviewed. Aspirin given in the ED. Review of systems: Pertinent positives and negatives as discussed in HPI, a complete review of systems was performed and all other systems are negative. Social history: Tobacco: quit 35 years ago. Active for 20-25 years 2ppd Alcohol: quit 10-15 years ago. 1 case a beer daily Recreational drugs: cocaine and meth 30 years. quit 5 years ago Travel: none Physical examination: Vital signs reviewed General: non toxic, no distress, appears at stated age, on room air Derm: no unusual rashes/lesions, warm Head: atraumatic, normocephalic, symmetric Eyes: EOMI, anicteric sclera, pupils equal round reactive to light ENT: Nose and ears atraumatic Neck: No cervical lymphadenopathy, trachea midline, supple Mouth: no lip lesion, mucus membranes moist, tongue deviation to right noted Cardiovascular: S1S2 bradycardic, no murmur Lungs: CTA bilateral, no rhonchi, no rales, no accessory muscle use Abdominal: soft, nondistended, nontender to palpation, no guarding Ext: no gross muscle atrophy, no contractures, positive dorsalis pedis pulse bilateral, no edema 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 The patient is admitted with an anticipated greater than 2 midnight stay for evaluation of ataxia and extremity weakness. Active: #. Ataxia and left sided upper and lower extremity weakness, r/o CVA #. Sinus bradycardia -Brain CT showed no acute intracranial process, with noted remote injury of the right temporal parietal and posterior frontal lobe with encephalomalacia which was similar to imaging on 06/2014 -CT angiography of head and neck showed no evidence of dissection of the cervical internal carotid arteries or vertebral arteries, no stenosis significant at carotid bifurcations, no evidence of intracranial high-grade stenosis or aneurysm with left vertebral artery terminating into the posterior inferior cerebellar artery. -Continue with Neurochecks -Continue with Cardiac telemetry -EKG independently interpreted showed sinus bradycardia with a rate of 54 bpm, normal axis, normal MT interval, intraventricular delay noted in V2, no ST-T changes, good R wave progression, QTc 417 MS. -Maintain permissive hypertenstion. BP goals SBP <220 mmHg, DBP <120 mmHg -Echocardiogram done recently 2024 per family EF was 30-35%. -Brain MRI -Check Lipid profile -Aspirin 325 given in the ED. Continue with ASA 81mg daily. -Continue Lipitor 40mg daily -Consult neurology -Consult PT/OT -Consult SP - Fall precautions NIH score of 2 , start plavix 75 mg daily for 21 days Chronic Conditions: #. Atrial fibrillation -cpntinue Eliquis for now #. COPD, not on home oxygen #. GERD #. CHF (EF in 08/2024 30 to 35%), on GDMT -Hold Spironolactone, Metoprolol, and Lisinopril for now due to labile BP #. Anxiety #. Depression -Continue home Xanax, Gabapentin, Lamotrigine F: Oral intake N: Heart healthy diet A: Fall precautions. Ambulate as needed DVT ppx: Pepin score 1. eliquis for afib and recent history cardioembolic event CODE STATUS: Full Discussed with: patient and patient's family Anticipated discharge place: pending clinical course Nataliia Rosenberg MD PGY-1 Internal Medicine Dictation was produced using [employer] dictation software. please excuse any grammatical, word or spelling errors. I have seen and evaluated the patient today. I Discussed the case with the resident and agree with the resident's findings I edited the assessment and plan as necessary as documented in the resident's note. Past Medical History Past Medical History: Atrial Fibrillation, Asthma, Heart Failure, COPD, CVA/TIA, Eye Disorder, GERD/Reflux, Pneumonia Additional Past Medical History / Comment(s): COVID 02/21, chronic stomach pain, IBS, fluid too thin bilateral eyes/poor vision, pneumonias. heart cath no stents , EF 25/30% Last Myocardial Infarction Date:: 04/22/24 History of Any Multi-Drug Resistant Organisms: None Reported Past Surgical History: Orthopedic Surgery Additional Past Surgical History / Comment(s): L leg injury with surgery/hardware. Past Anesthesia/Blood Transfusion Reactions: No Reported Reaction Past Psychological History: Anxiety, Depression Smoking Status: Former smoker Past Alcohol Use History: None Reported Past Drug Use History: None Reported - Past Family History Father Family Medical History: Cancer Additional Family Medical History / Comment(s): Father of bone cancer Mother Family Medical History: CVA/TIA Additional Family Medical History / Comment(s): Mother is 78yrs old and has had several strokes. Medications and Allergies Home Medications Medication Instructions Recorded Confirmed Type RX: Dapagliflozin Propanediol 10 mg PO DAILY 30 Days #30 tab 05/10/24 08/29/24 Rx [Farxiga] RX: Gabapentin [Neurontin] 100 mg PO HS 06/12/24 08/29/24 History RX: ALPRAZolam [Xanax] 0.5 mg PO TID PRN 06/13/24 08/29/24 History RX: Apixaban [Eliquis] 5 mg PO BID 06/13/24 08/29/24 History RX: FLUoxetine HCL [PROzac] 20 mg PO DAILY 06/13/24 08/29/24 History RX: Metoprolol Succinate (ER) 75 mg PO DAILY 06/13/24 08/29/24 History [Toprol XL] RX: Aspirin 81 mg PO HS 08/29/24 08/29/24 History RX: Atorvastatin [Lipitor] 40 mg PO HS 08/29/24 08/29/24 History Spironolactone [Aldactone] 25 mg PO DAILY 08/29/24 08/29/24 History lamoTRIgine [LaMICtal] 100 mg PO HS 08/29/24 08/29/24 History lisinopriL [Zestril] 20 mg PO DAILY 08/29/24 08/29/24 History Allergies Allergy/AdvReac Type Severity Reaction Status Date / Time codeine Allergy Rash/Hives Verified 08/29/24 20:44 amoxicillin AdvReac Nausea Verified 08/29/24 20:44 azithromycin [From Zithromax] AdvReac Nausea Verified 08/29/24 20:44 divalproex sodium AdvReac Chest Pain Verified 08/29/24 20:44 [From Depakote] Penicillins AdvReac Nausea Verified 08/29/24 20:44 Physical Exam Vitals: Vital Signs Temp Pulse Resp BP Pulse Ox 08/29/24 19:59 98.1 F 54 L 20 119/86 98 04/28/25 18:19 97.8 F 54 L 18 97/67 99 Intake and Output 08/29/24 08/29/24 08/29/24 06:59 14:59 22:59 Other: Weight 74.843 kg Results CBC & Chem 7: 08/29/24 19:01 08/29/24 19:01 Labs: Abnormal Lab Results - Last 24 Hours (Table) 08/29/24 08/29/24 Range/Units 19:01 19:01 RBC 4.35 L (4.40-5.60) 10*6/uL Hct 39.1 L (39.6-50.0) % Chloride 109 H (98-107) mmol/L BUN 22 H (9-20) mg/dL ALT 87 H (4-49) U/L Creatine Kinase 54 L (55-170) U/L
[2024-08-29] MEDS: SODIUM CHLORIDE 0.9% 500 ML 500 ML IV ONE (23:32)
[2024-08-29] MEDS: APIXABAN 5 MG TAB PO SCH (23:32)
[2024-08-29] MEDS: ENOXAPARIN 40 MG/0.4 ML SYRINGE SQ SCH (23:42)
[2024-08-30] MEDS: CLOPIDOGREL 75 MG TAB PO SCH (01:32)
[2024-08-30 08:40] LABS: Basophils # (A) 0.03 10*3/uL (0.00-0.10); Basophils % (A) 0.7 %; Eosinophils # (A) 0.11 10*3/uL (0.04-0.35); Eosinophils % (A) 2.7 %; HCT 38.3 % (39.6-50.0); HGB 13.4 g/dL (13.0-17.0); Lymphocytes # (A) 1.48 10*3/uL (0.90-5.00); Lymphocytes % (A) 36.6 %; MCH 31.5 pg (27.0-32.0); MCV 90.1 fL (80.0-97.0); Mean Platelet Volume 10.5 fL (9.5-12.2); Monocytes # (A) 0.53 10*3/uL (0.20-1.00); Monocytes % (A) 13.1 %; Neutrophils # (A) 1.88 10*3/uL (1.80-7.70); Neutrophils % (A) 46.7 %; Platelet Count 162 10*3/uL (140-440); RBC 4.25 10*6/uL (4.40-5.60); RDW 12.3 % (11.5-14.5); WBC 4.04 10*3/uL (4.50-10.00)
[2024-08-30 08:57] LABS: African American GFR (CKD) >90 (>60 ml/min/1.73 sqM); Anion Gap 8 mmol/L; Blood Urea Nitrogen 20 mg/dL (9-20); Calcium 8.8 mg/dL (8.4-10.2); Carbon Dioxide 23 mmol/L (22-30); Chloride 108 mmol/L (98-107); Glucose 83 mg/dL (74-99); Non-African American GFR(CKD) >90 (>60 ml/min/1.73 sqM); Potassium 3.7 mmol/L (3.5-5.1); Sodium 139 mmol/L (137-145)
[2024-08-30] MEDS ORDERED: ASPIRIN 325 MG TAB PO SCH (09:00)
[2024-08-30] MEDS: ASPIRIN 81 MG PO SCH (09:05)
[2024-08-30] MEDS: FLUoxetine HCL 20 MG CAP PO SCH (09:05)
[2024-08-30 10:31] LABS: VLDL Calculation 14.52 mg/dL (5.00-40.00)
[2024-08-30] MEDS: SODIUM CHLORIDE 0.9% 1,000 ML IV SCH (10:48)
--- NOTE | 2024-08-30 10:48 | P.PN ---
Subjective Progress Note Date: 08/30/24 Hospital Course: Patient is a 64-year-old male with atrial fibrillation (on Eliquis), CVA, COPD, GERD, CHF (EF in 04/2021 30 to 35%), former smoker, history of meth and cocaine use, anxiety, depression here for evaluation of weakness. Patient reported he has been experiencing generalized weakness with associated lightheadedness and balance disturbances requiring the use of his cane since 9:30am today. He also reported that in the past 3-4 days he has been having uncontrollable jaw clenching. Patient's family at bedside reported that these symptoms were new. He denied chest pain, palpitations, LOC, recent trauma/fall, vision changes, headaches, SOB, prolonged travel, or recent illness. Patient reported having recent history of NH and cardioembolic stroke in April 2024 when he was in [place]. He reported that during that admission, he had bradycardia w/c caused a clot in his left ventricle. He was able to complete subacute rehab and mentions that he has been able to ambulate without assistance and most of his deficits on the left side have disappeared. He also had a recent echo of his heart that said his EF was around 30%. On admission: Vitals: Temp 97.8 F, IA 54, RR 18, BP 97/67, O2 saturation 99% on room air Labs: WBC 4.8, hemoglobin 13.6 sodium 142, potassium 4.1, calcium 9.1, bicarb 24, BUN 22, creatinine 0.9, troponin less than 0.0 12, CK 54. Liver enzymes within normal limits except for ALT 87 slightly elevated. Coagulation panel within normal limits. Imaging: Chest x-ray showed no acute cardiopulmonary process. EKG independently interpreted showed sinus bradycardia with a rate of 54 bpm, normal axis, normal IA interval, intraventricular delay noted in V2, no ST-T changes, good R wave progression, QTc [address] showed no acute intracranial process, with noted remote injury of the right temporal parietal and posterior frontal lobe with encephalomalacia which was similar to imaging on 06/2014. CT angiography of head and neck showed no evidence of dissection of the cervical internal carotid arteries or vertebral arteries, no stenosis significant at carotid bifurcations, no evidence of intracranial high-grade stenosis or aneury sm with left vertebral artery terminating into the posterior inferior cerebellar artery. ED documentation reviewed. Aspirin given in the ED. Subjective: Patient seen and examined at bedside. No acute events overnight. Pertinent positives and negatives as discussed above, a complete review of systems was performed and all other systems are negative. Vitals: Signs Reviewed Physical Exam: General: non toxic, no distress, appears at stated age, on room air Derm: no unusual rashes/lesions, warm Head: atraumatic, normocephalic, symmetric Eyes: EOMI, anicteric sclera, pupils equal round reactive to light ENT: Nose and ears atraumatic Neck: No cervical lymphadenopathy, trachea midline, supple Mouth: no lip lesion, mucus membranes moist, tongue deviation to right noted Cardiovascular: S1S2 bradycardic, no murmur Lungs: CTA bilateral, no rhonchi, no rales, no accessory muscle use Abdominal: soft, nondistended, nontender to palpation, no guarding Ext: no gross muscle atrophy, no contractures, positive dorsalis pedis pulse bilateral, no edema 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, asymmetric smile on left side of face, 4/5 strength in distal left lower extremity and left upper distal and proximal upper extremity, other extremities 5/5 strength grossly Psych: Alert and oriented x 3, appropriate affect and mood Data Received Today: Pertinent Labs: CBC unremarkable WBC 4.04, Hgb 13.4, platelet 163, BMP unremarkable BUN 20, creatinine 0.89 Imaging: Echocardiogram: Pending Assessment and Plan: Patient is a 64-year-old male with history of CVA, atrial fibrillation, CHF and meth and cocaine use here for evaluation of ataxia and left-sided upper and lower extremity weakness concerning for CVA. Active: #. Ataxia and left sided upper and lower extremity weakness, r/o CVA #. Sinus bradycardia -Brain CT showed no acute intracranial process, with noted remote injury of the right temporal parietal and posterior frontal lobe with encephalomalacia which was similar to imaging on 06/2014 -CT angiography of head and neck showed no evidence of dissection of the cervical internal carotid arteries or vertebral arteries, no stenosis significant at carotid bifurcations, no evidence of intracranial high-grade stenosis or aneurysm with left vertebral artery terminating into the posterior inferior cerebellar artery. -Continue with Neurochecks -EKG independently interpreted showed sinus bradycardia with a rate of 54 bpm, normal axis, normal IA interval, intraventricular delay noted in V2, no ST-T changes, good R wave progression, QTc 417 MS. -Maintain permissive hypertenstion. BP goals SBP <220 mmHg, DBP <120 mmHg -Echocardiogram done recently 08/2024 per family EF was 30-35% -Echocardiogram pending -Brain MRI pending -Check Lipid profile -Aspirin 325 given in the ED. Continue with ASA 81mg daily. -Continue Lipitor 40mg daily -NIH score of 2 , continue with plavix 75 mg daily for 21 days -Normal saline at 100 cc an hour -Consult neurology -Consult PT/OT -Consult SP -Fall precautions #. HFref, not in acute exacerbation (EF 08/2024 30-35%) #. Asymtomatic Bradycarida - EKG indepentendly interpreted displaying sinus bradycarida - GDMT: hold spironolactone, metoprolol, and Lisinopril, Farxiga due to labile BP and bradycardia -Continue with Cardiac telemetry -Discussed with cardiology, will get records Chronic Conditions: #. Atrial fibrillation: Eliquis 5 mg PO BID, metoprolol on hold #. COPD, not on home oxygen #. Gerd: protonix 40 mg PO daily #. Depression\Anxiety: continue home Xanax, Gabapentin, Lamotrigine DVT ppx: Eliquis 5 mg p.o. twice daily Code status: Full code Anticipated discharge place: Pending clinical course Anticipated discharge time: Pending clinical course Hernán Constantino MD PGY-1 IM Dictation was produced using [employer] dictation software. please excuse any grammatical, word or spelling errors. I have seen and evaluated the patient today. Discussed with the resident and agree with the residents finding and plan as documented in the resident's note. Changes highlighted in blue font. Objective - Vital Signs Vital signs: Vital Signs Temp 98.3 F 08/30/24 06:02 Pulse 47 L 08/30/24 06:02 Resp 16 08/30/24 06:02 BP 108/64 08/30/24 06:02 Pulse Ox 97 08/30/24 06:02 FiO2 Intake & Output 08/29/24 08/30/24 08/30/24 18:59 06:59 18:59 Weight 74.843 kg - Labs CBC & Chem 7: 08/30/24 08:02 08/30/24 08:02 Labs: Abnormal Lab Results - Last 24 Hours (Table) 08/29/24 08/29/24 Range/Units 19:01 19:01 RBC 4.35 L (4.40-5.60) 10*6/uL Hct 39.1 L (39.6-50.0) % Chloride 109 H (98-107) mmol/L BUN 22 H (9-20) mg/dL ALT 87 H (4-49) U/L Creatine Kinase 54 L (55-170) U/L
--- NOTE | 2024-08-30 12:57 | P.CRDCN ---
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 Patient states that he was feeling off yesterday with dizziness. He then developed weakness on the left upper and lower extremities that started yesterday. He denies any fall. He states he had a little shortness of breath yesterday but has not had any of that since his heart attack in the past. Today he is feeling tired. Blood pressure 116/63, heart rate in the 40s, pulse ox 98% on room air. Patient is seen today in the emergency center waiting for a bed on the cardiac stepdown unit. Patient does have history of smoking and alcohol use and quit 35 to 40 years ago. He also has history of cocaine use and quit 7 years ago. -EKG: Sinus rhythm with nonspecific ST changes. -Chest x-ray: No acute process. -CT brain: No acute process. -CTA head and neck: No dissection of the cervical internal carotid arteries or vertebral arteries. No significant stenosis of the carotid bifurcations. No evidence of intracranial high-grade stenosis or intracranial aneurysm. Left vertebral artery terminating has posterior inferior cerebral Landry artery. -Laboratory studies: WBC 4, hemoglobin 13.4, creatinine 0.89. Triglycerides 72, cholesterol 91, LDL 44. Troponin negative x 1. -Home cardiac medications: Eliquis 5 mg twice daily, aspirin 81 mg daily, atorvastatin 40 mg at bedtime, Farxiga 10 mg daily, lisinopril 20 mg daily, metoprolol succinate 75 mg daily, spironolactone 25 mg daily. -Echocardiogram performed 05/13/2024 revealed EF of 25% with severe global hyp okinesis, LV normal size and thickness, RV mildly enlarged. No evidence of PFO. Trace mitral and tricuspid regurgitation. -Transesophageal echocardiogram performed 07/21/2024 revealed no PFO. No thr ombus, EF 30 to 35%, global hypokinesis Review Of Systems: At the time of my exam: CONSTITUTIONAL: Denies fever or chills. Reports left upper and lower extremity weakness HEENT: Denies blurred vision, vision changes, or eye pain. Denies hemoptysis CARDIOVASCULAR: Denies chest pain. Denies orthopnea. Denies PND. Denies palpitations RESPIRATORY: Denies shortness of breath. GASTROINTESTINAL: Denies abdominal pain. Denies nausea or vomiting. HEMATOLOGIC: Denies bleeding disorders. GENITOURINARY: Denies any blood in urine. SKIN: Denies puritis. Denies rash. Physical examination: Gen: This is a 64-year-old male in no acute distress. VS: reviewed HEENT: Head is atraumatic, normocephalic. Pupils equal, round. Sclerae is anicteric. NECK: Supple. No JVD. LUNGS: Clear to auscultation. No wheezes or rhonchi. No intercostal retractions. HEART: Regular rate and rhythm. No murmur. ABDOMEN: Soft No tenderness. EXTREMITIES: No pedal edema. No calf tenderness. NEUROLOGICAL: Patient is awake, alert and oriented x3. Assessment: Left sided upper and lower extremity weakness rule out CVA Sinus bradycardia, asymptomatic Chronic systolic heart failure with most recent EF of 35% Paroxysmal atrial fibrillation History of right MCA stroke in April 2024 Bipolar disorder Anemia COPD Plan: Resume patient's home cardiac medications Blood pressure medications are on hold for permissive hypertension Obtain records from [facility] Further recommendations to follow based upon clinical course Thank you kindly for this consultation. Nurse practitioner note has been reviewed, I agree with documented findings and plan of care. Patient was seen and examined. Past Medical History Past Medical History: Atrial Fibrillation, Asthma, Heart Failure, COPD, CVA/TIA, Eye Disorder, GERD/Reflux, Pneumonia Additional Past Medical History / Comment(s): COVID 02/21, chronic stomach pain, IBS, fluid too thin bilateral eyes/poor vision, pneumonias. heart cath no stents, EF 25/30% Last Myocardial Infarction Date:: 04/22/24 History of Any Multi-Drug Resistant Organisms: None Reported Past Surgical History: Orthopedic Surgery Additional Past Surgical History / Comment(s): L leg injury with surgery/hardware. Past Anesthesia/Blood Transfusion Reactions: No Reported Reaction Past Psychological History: Anxiety, Depression Smoking Status: Former smoker Past Alcohol Use History: None Reported Past Drug Use History: None Reported - Past Family History Father Family Medical History: Cancer Additional Family Medical History / Comment(s): Father of bone cancer Mother Family Medical History: CVA/TIA Additional Family Medical History / Comment(s): Mother is 78yrs old and has had several strokes. Medications and Allergies Home Medications Medication Instructions Recorded Confirmed Type Dapagliflozin Propanediol [Farxiga] 10 mg PO DAILY 30 Days #30 tab 05/10/24 08/29/24 Rx Gabapentin [Neurontin] 100 mg PO HS 06/12/24 08/29/24 History ALPRAZolam [Xanax] 0.5 mg PO TID PRN 06/13/24 08/29/24 History Apixaban [Eliquis] 5 mg PO BID 06/13/24 08/29/24 History FLUoxetine HCL [PROzac] 20 mg PO DAILY 06/13/24 08/29/24 History Metoprolol Succinate (ER) [Toprol 75 mg PO DAILY 06/13/24 08/29/24 History XL] Aspirin 81 mg PO HS 08/29/24 08/29/24 History Atorvastatin [Lipitor] 40 mg PO HS 08/29/24 08/29/24 History Spironolactone [Aldactone] 25 mg PO DAILY 08/29/24 08/29/24 History lamoTRIgine [LaMICtal] 100 mg PO HS 08/29/24 08/29/24 History lisinopriL [Zestril] 20 mg PO DAILY 08/29/24 08/29/24 History Allergies Allergy/AdvReac Type Severity Reaction Status Date / Time codeine Allergy Rash/Hives Verified 08/29/24 20:44 amoxicillin AdvReac Nausea Verified 08/29/24 20:44 azithromycin [From Zithromax] AdvReac Nausea Verified 08/29/24 20:44 divalproex sodium AdvReac Chest Pain Verified 08/29/24 20:44 [From Depakote] Penicillins AdvReac Nausea Verified 08/29/24 20:44 Physical Exam Vitals: Vital Signs Temp Pulse Resp BP Pulse Ox 08/30/24 07:51 49 L 18 116/63 98 08/30/24 06:02 98.3 F 47 L 16 108/64 97 08/30/24 03:58 97.6 F 45 L 16 110/51 96 08/30/24 01:12 98.9 F 58 L 20 103/59 96 08/29/24 22:15 44 L 18 107/64 94 L 08/29/24 20:25 97.9 F 53 L 20 106/66 94 L 08/29/24 19:59 98.1 F 54 L 20 119/86 98 08/29/24 18:19 97.8 F 54 L 18 97/67 99 Intake and Output 08/29/24 08/30/24 08/30/24 22:59 06:59 14:59 Other: Weight 74.843 kg Results 08/31/24 05:19 08/31/24 05:19 Cardiac Enzymes 08/29/24 08/29/24 Range/Units 19:01 19: AST 38 (17-59) U/L Troponin I <0.012 (0.000-0.034) ng/mL Coagulation 08/29/24 Range/Units 19: PT 11.2 (10.0-12.5) sec APTT 23.4 (22.0-30.0) sec Lipids 08/29/24 Range/Units 19:01 Triglycerides 72.60 (0.00-149.00) mg/dL Cholesterol 91.00 (0.00-200.00) mg/dL HDL Cholesterol 32.50 L (40.00-60.00) mg/dL Cholesterol/HDL Ratio 2.80 Ratio CBC 08/29/24 08/30/24 Range/Units 19:01 08:02 WBC 4.84 4.04 L (4.50-10.00) 10*3/uL RBC 4.35 L 4.25 L (4.40-5.60) 10*6/uL Hgb 13.6 13.4 (13.0-17.0) g/dL Hct 39.1 L 38.3 L (39.6-50.0) % Plt Count 161 162 (140-440) 10*3/uL Comprehensive Metabolic Panel 08/29/24 08/30/24 Range/Units 19:01 08:02 Sodium 142 139 (137-145) mmol/L Potassium 4.1 3.7 (3.5-5.1) mmol/L Chloride 109 H 108 H (98-107) mmol/L Carbon Dioxide 24 23 (22-30) mmol/L BUN 22 H 20 (9-20) mg/dL Creatinine 0.93 0.89 (0.66-1.25) mg/dL Glucose 94 83 (74-99) mg/dL Calcium 9.1 8.8 (8.4-10.2) mg/dL AST 38 (17-59) U/L ALT 87 H (4-49) U/L Alkaline Phosphatase 75 (38-126) U/L Total Protein 6.5 (6.3-8.2) g/dL Albumin 3.8 (3.5-5.0) g/dL Current Medications Generic Name Dose Route Start Last Admin Trade Name Freq PRN Reason Stop Dose Admin Alprazolam 0.5 mg 08/29/24 21:32 Alprazolam 0.5 Mg Tab PO TID PRN Anxiety Apixaban 5 mg 08/29/24 23:30 08/30/24 09:05 Apixaban 5 Mg Tab PO 5 mg BID KADEN Administration Protocol Aspirin 81 mg 08/30/24 09:00 08/30/24 09:05 Aspirin 81 Mg PO 81 mg DAILY KADEN Administration Atorvastatin Calcium 40 mg 08/29/24 21:00 08/29/24 21:39 Atorvastatin 40 Mg Tab PO 40 mg HS KADEN Administration Clopidogrel Bisulfate 75 mg 08/29/24 23:45 08/30/24 09:05 Clopidogrel 75 Mg Tab PO 75 mg DAILY KADEN Administration Fluoxetine HCl 20 mg 08/30/24 09:00 08/30/24 09:05 Fluoxetine Hcl 20 Mg Cap PO 20 mg DAILY KADEN Administration Gabapentin 100 mg 08/29/24 22:00 08/29/24 21:39 Gabapentin 100 Mg Cap PO 100 mg HS KADEN Administration Sodium Chloride 1,000 mls @ 100 mls/hr 08/30/24 10:30 08/30/24 10:48 Saline 0.9% IV 100 mls/hr .Q10H KADEN Administration Lamotrigine 100 mg 08/29/24 22:00 08/29/24 21:40 Lamotrigine 100 Mg Tab PO 100 mg HS KADEN Administration Intake and Output 08/29/24 08/30/24 08/30/24 22:59 06:59 14:59 Other: Weight 74.843 kg 08/30/24 08:02 08/30/24 08:02
--- NOTE | 2024-08-30 18:36 | P.CNNES ---
History of Present Illness Consult date: 08/30/24 Requesting physician: Enoch Rodas Reason for Consult: CVA History of Present Illness: Patient is a 64-year-old male came to the hospital by ambulance yesterday at 6:08 PM for very vague symptoms. Patient states that yesterday in the late afternoon, he developed lightheadedness which she felt as off-balance, not spinning or vertigo. He was falling into the manzo, was quite lightheaded. He was feeling very tired. He called his daughter who called the EMS and he was brought to the ER. Patient does have history of previous CVA with mild residual left-sided weakness. I spoke to patient's daughter Stefani on the phone, who states that patient does have some fluctuating left-sided weakness. He has been very sleepy for last 2 days. Yesterday she mentioned that she was going to take her children to a baseball game, and patient started crying. Patient started complaining of shortness of breath, dizziness. Patient himself states that on Thursday he was at his son's house when he was feeling "off". His granddaughter said his voice was changed and was slightly slurred. Due to these reasons, he was brought to the hospital. I spoke to patient's daughter, who mentions that patient is fully compliant with the medication, does not miss the dose. As per EMS flowsheet, when they arrived, patient was complaining of dizziness and not feeling right all day today. Patient has a recent history of a heart attack and stroke at the same time in April 2024. He has right-sided deficits from the stroke. This morning he was woken up by his son, who helps him get his medications in the morning and noticed he did not feel well and was dizzy. Symptoms have not resolved. Patient was noted to be alert and orient x 4, pale, warm and dry. Patient was noted to be in and out of atrial fibrillation. Patient has been recommended by his primary physician to see nuclear medicine chief technologist, however he has not been able to see nuclear medicine chief technologist yet. Patient was hypotensive, and IV fluids were started. Patient's vitals at the scene was blood pressure 116/67, pulse rate 56, respiration 18 saturation 98% temperature 98.5. Blood test shows normal CBC, PT PTT, normal basic metabolic panel, AST is normal, ALT 87. Troponin negative. Chest x-ray shows no acute cardiopulmonary process. EKG shows sinus bradycardia. CT head revealed no acute intracranial process. Remote injury of the right temporal parietal and posterior frontal lobe with encephalomalacia. This is unchanged to 06/20/2014. I personally reviewed CT head, agree with the findings. Patient's home medications include aspirin 81 mg, Eliquis 5 mg twice daily, Lipitor 40 mg, lisinopril, spironolactone, Xanax, Prozac 20 mg, metoprolol, gabapentin and Farxiga. Patient denies any tobacco use, alcohol or marijuana. He lives with his son. Previous history: Patient apparently suffered from a stroke on 04/21/2024 involving the right MCA vascular territory, with residual left hemiparesis. He was in [facility] but he left [facility]. They were told that he has M2 blockage. He was placed on Eliquis since they felt it was cardiac in origin but patient does not have any history of atrial fibrillation. He does have chronic history of systolic heart failure with EF of 25%. EEG was negative for seizures. Patient was initially admitted to [facility] on 05/06/2024 for altered mental status and recent CVA. Patient was discharged on aspirin and Plavix on 05/10/2024 because there were no records of atrial fibrillation or thrombus on the echo. It was felt that patient was noncompliant with hospital follow-ups therefore Eliquis was not recommended. Pacemaker was recommended but he has not been compliant with his appointment with the nuclear medicine chief technologist. Patient was readmitted to this hospital on 06/13/2024 with headache. He was seen by Dr. Don. MRI of the brain revealed late subacute on chronic infarct near the junction of the right frontal temporal parietal lobe. At that time patient was discharged on aspirin and Eliquis. Review of Systems All pertinent positive and negative review of systems mentioned in the HPI, otherwise unremarkable. Past Medical History Past Medical History: Atrial Fibrillation, Asthma, Heart Failure, COPD, CVA/TIA, Eye Disorder, GERD/Reflux, Pneumonia Additional Past Medical History / Comment(s): COVID 02/21, chronic stomach pain, IBS, fluid too thin bilateral eyes/poor vision, pneumonias. heart cath no stents, EF 25/30% Last Myocardial Infarction Date:: 04/22/24 History of Any Multi-Drug Resistant Organisms: None Reported Past Surgical History: Orthopedic Surgery Additional Past Surgical History / Comment(s): L leg injury with surgery/hardware. Past Anesthesia/Blood Transfusion Reactions: No Reported Reaction Past Psychological History: Anxiety, Depression Smoking Status: Former smoker Past Alcohol Use History: None Reported Past Drug Use History: None Reported - Past Family History Father Family Medical History: Cancer Additional Family Medical History / Comment(s): Father of bone cancer Mother Family Medical History: CVA/TIA Additional Family Medical History / Comment(s): Mother is 78yrs old and has had several strokes. Medications and Allergies Home Medications Medication Instructions Recorded Confirmed Type Dapagliflozin Propanediol [Farxiga] 10 mg PO DAILY 30 Days #30 tab 05/10/24 08/29/24 Rx Gabapentin [Neurontin] 100 mg PO HS 06/12/24 08/29/24 History ALPRAZolam [Xanax] 0.5 mg PO TID PRN 06/13/24 08/29/24 History Apixaban [Eliquis] 5 mg PO BID 06/13/24 08/29/24 History FLUoxetine HCL [PROzac] 20 mg PO DAILY 06/13/24 08/29/24 History Metoprolol Succinate (ER) [Toprol 75 mg PO DAILY 06/13/24 08/29/24 History XL] Aspirin 81 mg PO HS 08/29/24 08/29/24 History Atorvastatin [Lipitor] 40 mg PO HS 08/29/24 08/29/24 History Spironolactone [Aldactone] 25 mg PO DAILY 08/29/24 08/29/24 History lamoTRIgine [LaMICtal] 100 mg PO HS 08/29/24 08/29/24 History lisinopriL [Zestril] 20 mg PO DAILY 08/29/24 08/29/24 History Allergies Allergy/AdvReac Type Severity Reaction Status Date / Time codeine Allergy Rash/Hives Verified 08/29/24 20:44 amoxicillin AdvReac Nausea Verified 08/29/24 20:44 azithromycin [From Zithromax] AdvReac Nausea Verified 08/29/24 20:44 divalproex sodium AdvReac Chest Pain Verified 08/29/24 20:44 [From Depakote] Penicillins AdvReac Nausea Verified 08/29/24 20:44 Physical Examination - Vital Signs Vital Signs: Vital Signs Temp Pulse Resp BP Pulse Ox 08/30/24 07:51 49 L 18 116/63 98 08/30/24 06:02 98.3 F 47 L 16 108/64 97 08/30/24 03:58 97.6 F 45 L 16 110/51 96 08/30/24 01:12 98.9 F 58 L 20 103/59 96 08/29/24 22:15 44 L 18 107/64 94 L 08/29/24 20:25 97.9 F 53 L 20 106/66 94 L 08/29/24 19:59 98.1 F 54 L 20 119/86 98 08/29/24 18:19 97.8 F 54 L 18 97/67 99 Intake and Output 08/29/24 08/30/24 08/30/24 22:59 06:59 14:59 Other: Weight 74.843 kg Patient is a late middle-aged male, in no acute distress. Patient is alert awake oriented to time place and person. Speech and language functions are normal. Patient can name and repeat very well. No aphasia, or dysarthria. Attention, concentration and fund of knowledge is adequate. Patient has repeated mouth movements, almost looking like tardive dyskinesia. On cranial nerve examination, pupils are equal, round and reacting to light, visual mccollum revealed slight neglect in the left lower quadrant, homonymous type. Extraocular muscles are intact with no nystagmus. Patient has very mild left facial droop and his tongue protrudes to the midline. Palatal elevation and sensation normal, hearing and shoulder shrug normal, facial sensation slightly decreased on the left. On muscle strength testing, there is no pronator drift. The strength is normal in arms and legs distally and proximally. Deep tendon reflexes are (right/left) biceps 1+/2+, brachioradialis 1+/2+, knees 2+/3, ankles 1/1+ and plantars downgoing bilaterally Sensory to touch he was feeling less involving the left side of the face, arm and leg. Cerebellar function showed mild dysmetria for [id number] testing, only on the left side. No ataxia for [id number] testing on either side. Tone and bulk of muscles normal. Gait deferred.. On general examination, there is no carotid bruit or murmur, S1-S2 audible. Chest is clear on consultation. Abdomen is soft nontender. No organomegaly, bowel sounds present. Peripheral pulses are present. No peripheral edema. Results - Laboratory Findings CBC and BMP: 08/30/24 08:02 08/30/24 08:02 Abnormal Lab Findings: Abnormal Labs 08/29/24 08/29/24 08/29/24 19:01 19:01 19:01 WBC RBC 4.35 L Hct 39.1 L Chloride 109 H BUN 22 H ALT 87 H Creatine Kinase 54 L HDL Cholesterol 32.50 L 08/30/24 08/30/24 08:02 08:02 WBC 4.04 L RBC 4.25 L Hct 38.3 L Chloride 108 H BUN ALT Creatine Kinase HDL Cholesterol Assessment and Plan Assessment: * 64-year-old male with recent CVA 04/21/2024, with mild residual left-sided weakness, came with some dizziness, tiredness, excessive sleepiness. Examination is completely unchanged. No evidence of new stroke or TIA. * CHF * Hypertension * Atrial fibrillation * Depression/anxiety Plan: * Patient has presented with very vague, nonlocalizing symptoms. Patient's examination is completely unchanged as compared to last examination. No ev idence of stroke or TIA. * Patient's daughter mentions that patient had transesophageal echocardiogram performed at [facility] in June 2024, which did not reveal any embolic source. His EF has improved from 20-25 to 30 to 35%. No need for repeating 2D echo. * CTA head and neck showed: No evidence of dissection of the cervical internal carotid arteries or vertebral arteries. No evidence of significant stenosis at the carotid bifurcations. No evidence of intracranial high-grade stenosis or intracranial aneurysm. Left vertebral artery terminating as posterior inferior cerebellar artery. * Fasting a.m. lipid panel with cholesterol 91, LDL 44, HDL 32, triglycerides 72. Continue Lipitor 40 mg daily (home dose) * Hemoglobin A1c 5.6 on 06/21/2024. * Continue Eliquis 5 mg twice daily and aspirin 81 mg daily. * Optimize control of blood pressure. * Consider evaluation for possible depression. * Neurologically, no other workup indicated. Neurologically clear for discharge. * Thank you for the consult.
[2024-08-31 05:50] LABS: Basophils # (A) 0.02 10*3/uL (0.00-0.10); Basophils % (A) 0.5 %; Eosinophils % (A) 2.7 %; HCT 38.7 % (39.6-50.0); HGB 13.1 g/dL (13.0-17.0); Lymphocytes # (A) 1.25 10*3/uL (0.90-5.00); Lymphocytes % (A) 33.8 %; MCH 30.5 pg (27.0-32.0); MCHC 33.9 g/dL (32.0-37.0); MCV 90.2 fL (80.0-97.0); Mean Platelet Volume 10.2 fL (9.5-12.2); Monocytes # (A) 0.52 10*3/uL (0.20-1.00); Monocytes % (A) 14.1 %; Neutrophils % (A) 48.6 %; Platelet Count 145 10*3/uL (140-440); RBC 4.29 10*6/uL (4.40-5.60); RDW 11.9 % (11.5-14.5)
[2024-08-31 06:27] LABS: African American GFR (CKD) >90 (>60 ml/min/1.73 sqM); Anion Gap 8 mmol/L; Blood Urea Nitrogen 19 mg/dL (9-20); Calcium 8.8 mg/dL (8.4-10.2); Carbon Dioxide 23 mmol/L (22-30); Chloride 106 mmol/L (98-107); Glucose 81 mg/dL (74-99); Magnesium 1.9 mg/dL (1.6-2.3); Non-African American GFR(CKD) >90 (>60 ml/min/1.73 sqM); Potassium 3.9 mmol/L (3.5-5.1); Sodium 137 mmol/L (137-145)
[2024-08-31 07:34] VITALS: BP 118/70; PULSE 70; RESP 15; TEMP 98.5
[2024-08-31] MEDS ORDERED: SPIRONOLACTONE 25 MG TAB PO SCH (09:45)
[2024-08-31] MEDS ORDERED: lisinopriL 20 MG TAB PO SCH (09:45)
[2024-08-31] MEDS: METOPROLOL SUCCINATE (ER) 25 MG TAB.ER.24H PO SCH (11:30)
[2024-08-31] MEDS: lisinopriL 5 MG TAB PO SCH (11:30)
[2024-08-31] MEDS: SPIRONOLACTONE 25 MG TAB PO SCH (11:30)
--- NOTE | 2024-08-31 11:51 | P.DS ---
Providers Date of admission: 08/29/24 20:22 Discharge Diagnosis: Ataxia and left sided upper and lower extremity weakness, r/o CVA Sinus bradycardia HFref, not in acute exacerbation (EF 08/2024 30-35%) Asymtomatic Bradycarida Atrial fibrillation COPD GERD Anxiety Depression Hospital Course: Patient is a 64-year-old male with atrial fibrillation (on Eliquis), CVA, COPD, GERD, CHF (EF in 04/2021 30 to 35%), former smoker, history of meth and cocaine use, anxiety, depression here for evaluation of weakness. Patient reported he has been experiencing generalized weakness with associated lightheadedness and balance disturbances requiring the use of his cane since 9:30am today. He also reported that in the past 3-4 days he has been having uncontrollable jaw clenching. Patient's family at bedside reported that these symptoms were new. He denied chest pain, palpitations, LOC, recent trauma/fall, vision changes, headaches, SOB, prolonged travel, or recent illness. Patient reported having recent history of LA and cardioembolic stroke in April 2024 when he was in [place]. He reported that during that admission, he had bradycardia w/c caused a clot in his left ventricle. He was able to complete subacute rehab and mentions that he has been able to ambulate without assistance and most of his deficits on the left side have disappeared. He also had a recent echo of his heart that said his EF was around 30%. On admission: Vitals: Temp 97.8 F, MA 54, RR 18, BP 97/67, O2 saturation 99% on room air Labs: WBC 4.8, hemoglobin 13.6 sodium 142, potassium 4.1, calcium 9.1, bicarb 24, BUN 22, creatinine 0.9, troponin less than 0.0 12, CK 54. Liver enzymes within normal limits except for ALT 87 slightly elevated. Coagulation panel within normal limits. Imaging: Chest x-ray showed no acute cardiopulmonary process. EKG independently interpreted showed sinus bradycardia with a rate of 54 bpm, normal axis, normal MA interval, intraventricular delay noted in V2, no ST-T changes, good R wave progression, QTc [address] showed no acute intracranial process, with noted remote injury of the right temporal parietal and posterior frontal lobe with encephalomalacia which was similar to imaging on 06/2014. CT angiography of head and neck showed no evidence of dissection of the cervical internal carotid arteries or vertebral arteries, no stenosis significant at carotid bifurcations, no evidence of intracranial high-grade stenosis or aneurysm with left vertebral artery terminating into the posterior inferior cerebellar artery. ED documentation reviewed. Aspirin given in the ED. Patient was admitted for further management of suspected CVA/TIA neurology and cardiology consulted. Patient was seen and evaluated by neurology. Neurology states that patient's examination is completely unchanged as compared to his last examination with no evidence of stroke or TIA. Therefore MRI was not needed. Per neurology patient's daughter mentioned that he had transesophageal echocardiogram performed at in 2024 which did not reveal embolic source. His last EF improved from 20-25% to 30-35%. There was no need for repeat echocardiogram. Some of his GDMT for HFrEF was decreased by cardiology due to low blood pressure and bradycardia. Patient is hemodynamically stable and cleared by all specialties. He will follow-up with cardiology, neurology and his PCP. Patient can be discharged home today. Patient seen and examined at bedside. Patient states that he has been able to walk without any difficulty, and says he is regaining some strength. Vital signs reviewed and stable. Physical examination: Vital signs reviewed General: non toxic, no distress, appears at stated age, on room air Derm: no unusual rashes/lesions, warm Head: atraumatic, normocephalic, symmetric Eyes: EOMI, anicteric sclera, pupils equal round reactive to light ENT: Nose and ears atraumatic Neck: No cervical lymphadenopathy, trachea midline, supple Mouth: no lip lesion, mucus membranes moist, tongue deviation to right noted Cardiovascular: S1S2 normal, no murmur Lungs: CTA bilateral, no rhonchi, no rales, no accessory muscle use Abdominal: soft, nondistended, nontender to palpation, no guarding Ext: no gross muscle atrophy, no contractures, positive dorsalis pedis pulse bilateral, no edema Neuro: other associate field service engineer grossly intact, asymmetric smile on left side of face, 4/5 strength in distal left lower extremity and left upper distal and proximal upper extremity, other extremities 5/5 strength grossly Psych: Alert and oriented x 3, appropriate affect and mood A total of greater than 30 minutes of time were spent preparing this complex discharge summary. Patient was discharged on August 31, 2024 at 10:08 AM. Hernán Constantino MD PGY-1 IM Dictation was produced using [employer] dictation software. please excuse any grammatical, word or spelling errors. I have seen and evaluated the patient today. Discussed with the resident and agree with the residents finding and plan as documented in the resident's note. Changes highlighted in blue font. Expected date of discharge: 08/31/24 Attending physician: Macho Foy MD Consults: 08/29/24 20:25 Consult Physician Urgent Consulting Provider: Jeimy Clark Consult Reason/Comments: cva Do you want consulting provider notified?: Yes 08/29/24 22:22 Consult Physician Routine Consulting Provider: Jaguar Mendoza Consult Reason/Comments: sinus bradycardia, CHF Do you want consulting provider notified?: Yes, Notify in am Primary care physician: Deny Barrera Patient Condition at Discharge: Fair Plan - Discharge Summary Discharge Rx Participant: No New Discharge Prescriptions: New Spironolactone [Aldactone] 12.5 mg PO DAILY #90 tab Metoprolol Succinate (ER) [Toprol XL] 25 mg PO DAILY #90 tab lisinopriL [Zestril] 5 mg PO DAILY #90 tab Continue FLUoxetine HCL [PROzac] 20 mg PO DAILY lamoTRIgine [LaMICtal] 100 mg PO HS Atorvastatin [Lipitor] 40 mg PO HS Dapagliflozin Propanediol [Farxiga] 10 mg PO DAILY 30 Days #30 tab Gabapentin [Neurontin] 100 mg PO HS ALPRAZolam [Xanax] 0.5 mg PO TID PRN PRN Reason: Anxiety Apixaban [Eliquis] 5 mg PO BID Aspirin 81 mg PO HS Discontinued Metoprolol Succinate (ER) [Toprol XL] 75 mg PO DAILY Spironolactone [Aldactone] 25 mg PO DAILY lisinopriL [Zestril] 20 mg PO DAILY Discharge Medication List Dapagliflozin Propanediol [Farxiga] 10 mg PO DAILY 30 Days #30 tab 05/10/24 [Rx] Gabapentin [Neurontin] 100 mg PO HS 06/12/24 [History] ALPRAZolam [Xanax] 0.5 mg PO TID PRN 06/13/24 [History] Apixaban [Eliquis] 5 mg PO BID 06/13/24 [History] FLUoxetine HCL [PROzac] 20 mg PO DAILY 06/13/24 [History] Aspirin 81 mg PO HS 08/29/24 [History] Atorvastatin [Lipitor] 40 mg PO HS 08/29/24 [History] lamoTRIgine [LaMICtal] 100 mg PO HS 08/29/24 [History] Metoprolol Succinate (ER) [Toprol XL] 25 mg PO DAILY #90 tab 08/31/24 [Rx] Spironolactone [Aldactone] 12.5 mg PO DAILY #90 tab 08/31/24 [Rx] lisinopriL [Zestril] 5 mg PO DAILY #90 tab 08/31/24 [Rx] Follow up Appointment(s)/Referral(s): Jarrett Arana DO [STAFF PHYSICIAN] - 09/07/24 2:45 pm Deny Barrera MD [Primary Care Provider] - 1-2 days Jeimy Clark MD [STAFF PHYSICIAN] - 1 Week Patient Instructions/Handouts: Heart Failure (DC), Ischemic Stroke (DC) Activity/Diet/Wound Care/Special Instructions: Please follow up with PCP, cardiology, and neurology. Discharge Disposition: HOME SELF-CARE
--- NOTE | 2024-09-01 07:58 | P.PN ---
Subjective Progress Note Date: 08/31/24 History of present illness: This is 64-year-old male follows with a geographic area intelligence officer at [facility] with past medical history of right MCA stroke in April 2024, cardiomyopathy with EF of 25%, paroxysmal atrial fibrillation on Eliquis, bipolar disorder, anemia, hypertension, hyperlipidemia. Patient states that he was feeling off yesterday with dizziness. He then developed weakness on the left upper and lower extremities that started yesterday. He denies any fall. He states he had a little shortness of breath yesterday but has not had any of that since his heart attack in the past. Today he is feeling tired. Blood pressure 116/63, heart rate in the 40s, pulse ox 98% on room air. Patient is seen today in the emergency center waiting for a bed on the cardiac stepdown unit. Patient does have history of smoking and alcohol use and quit 35 to 40 years ago. He also has history of cocaine use and quit 7 years ago. -EKG: Sinus rhythm with nonspecific ST changes. -Chest x-ray: No acute process. -CT brain: No acute process. -CTA head and neck: No dissection of the cervical internal carotid arteries or vertebral arteries. No significant stenosis of the carotid bifurcations. No evidence of intracranial high-grade stenosis or intracranial aneurysm. Left vertebral artery terminating has posterior inferior cerebral Landry artery. -Laboratory studies: WBC 4, hemoglobin 13.4, creatinine 0.89. Triglycerides 72, cholesterol 91, LDL 44. Troponin negative x 1. -Home cardiac medications: Eliquis 5 mg twice daily, aspirin 81 mg daily, atorvastatin 40 mg at bedtime, Farxiga 10 mg daily, lisinopril 20 mg daily, metoprolol succinate 75 mg daily, spironolactone 25 mg daily. -Echocardiogram performed 05/13/2024 revealed EF of 25% with severe global hypokinesis, LV normal size and thickness, RV mildly enlarged. No evidence of PFO. Trace mitral and tricuspid regurgitation. -Transesophageal echocardiogram performed 07/21/2024 revealed no PFO. No thrombus, EF 30 to 35%, global hypokinesis 08/31 Patient seen and examined on the observation unit. Blood pressure 118/70, heart rate 70, pulse ox 95% on room air. Repeat blood work reveals WBC 3.7, hemoglobin 13.1, creatinine 0.86. Patient has been evaluated by neurology and is weakness is unchanged from previous examination and no other neurological workup in process. Noted that lisinopril, metoprolol and spironolactone have been on hold. Physical examination: Gen: This is a 64-year-old male in no acute distress. VS: reviewed HEENT: Head is atraumatic, normocephalic. Pupils equal, round. Sclerae is anicteric. NECK: Supple. No JVD. LUNGS: Clear to auscultation. No wheezes or rhonchi. No intercostal retractions. HEART: Regular rate and rhythm. No murmur. ABDOMEN: Soft No tenderness. EXTREMITIES: No pedal edema. No calf tenderness. NEUROLOGICAL: Patient is awake, alert and oriented x3. Assessment: Left sided upper and lower extremity weakness ruled out CVA by neurology Sinus bradycardia, asymptomatic Chronic systolic heart failure with most recent EF of 35% Paroxysmal atrial fibrillation History of right MCA stroke in April 2024 Bipolar disorder Anemia COPD Plan: Resume patient's home cardiac medications No further cardiac workup at this time Patient may follow-up with his geographic area intelligence officer at [facility] in 2 weeks. Nurse practitioner note has been reviewed, I agree with documented findings and plan of care. Patient was seen and examined. Objective - Vital Signs Vital signs: Vital Signs Temp 98.5 F 08/31/24 07:00 Pulse 70 08/31/24 07:00 Resp 15 08/31/24 07:00 BP 118/70 08/31/24 07:00 Pulse Ox 95 08/31/24 07:00 FiO2 Intake & Output 08/30/24 08/31/24 08/31/24 18:59 06:59 18:59 Intake Total 240 Balance 240 Intake: Oral 240 Other: # Voids 2 - Labs CBC & Chem 7: 08/31/24 05:19 08/31/24 05:19 Labs: Abnormal Lab Results - Last 24 Hours (Table) 08/29/24 08/30/24 08/30/24 Range/Units 19:01 08:02 08:02 WBC 4.04 L (4.50-10.00) 10*3/uL RBC 4.25 L (4.40-5.60) 10*6/uL Hct 38.3 L (39.6-50.0) % Chloride 108 H (98-107) mmol/L HDL Cholesterol 32.50 L (40.00-60.00) mg/dL 08/31/24 Range/Units 05:19 WBC 3.70 L (4.50-10.00) 10*3/uL RBC 4.29 L (4.40-5.60) 10*6/uL Hct 38.7 L (39.6-50.0) % Chloride (98-107) mmol/L HDL Cholesterol (40.00-60.00) mg/dL
[2024-09-01] MEDS ORDERED: DAPAGLIFLOZIN PROPANEDIOL 10 MG TABLET PO SCH (09:00)
--- NOTE | 2024-09-02 12:07 | P.PN ---
Subjective Progress Note Date: 08/31/24 Patient was seen for follow-up. Patient sitting on the side of the bed, fully dressed, ready to go home. Offers no new complaints. States he is doing much better today. No new concerns. No dizziness or lightheadedness. Patient states that he walked with physical therapy and did well. Objective - Vital Signs Vital signs: Vital Signs Temp 98.5 F 08/31/24 07:00 Pulse 70 08/31/24 07:00 Resp 15 08/31/24 07:00 BP 118/70 08/31/24 07:00 Pulse Ox 95 08/31/24 07:00 FiO2 - Exam Examination completely unchanged. - Labs CBC & Chem 7: 08/31/24 05:19 08/31/24 05:19 Assessment and Plan Assessment: * 64-year-old male with recent CVA 04/21/2024, with mild residual left-sided weakness, came with some dizziness, tiredness, excessive sleepiness. Examination is completely unchanged. No evidence of new stroke or TIA. * CHF * Hypertension * Atrial fibrillation * Depression/anxiety Plan: * Patient has presented with very vague, nonlocalizing symptoms. Patient's examination is completely unchanged as compared to last examination. No evidence of stroke or TIA. * Patient's daughter mentions that patient had transesophageal echocardiogram performed at [facility] in June 2024, which did not reveal any embolic source. His EF has improved from 20-25 to 30 to 35%. No need for repeating 2D echo. * CTA head and neck showed: No evidence of dissection of the cervical internal carotid arteries or vertebral arteries. No evidence of significant stenosis at the carotid bifurcations. No evidence of intracranial high-grade stenosis or intracranial aneurysm. Left vertebral artery terminating as posterior inferior cerebellar artery. * Fasting a.m. lipid panel with cholesterol 91, LDL 44, HDL 32, triglycerides 72. Continue Lipitor 40 mg daily (home dose) * Hemoglobin A1c 5.6 on 06/21/2024. * Continue Eliquis 5 mg twice daily and aspirin 81 mg daily. * Optimize control of blood pressure. * Consider evaluation for possible depression. * Neurologically, no other workup indicated. Neurologically clear for discharge. * Thank you for the consult. Records from [facility]: Patient had MARLIN, on 07/21/2024, in which there was no appearance of spontaneous contrast, sludge or thrombus in the left atrial appendage or left atrium. The left ventricular EF is 30 to 35% and there is moderate global hypokinesis. No atheroma in the aortic root and proximal ascending aorta. No evidence for a patent foramen ovale with color Doppler and saline injection.
== END 2024-08-31 11:46 | disposition home or self-care (01) ==
LOC: EC 18:08 → 6NMEDSUR 20:22
PROVIDERS: ADMIT Internal Medicine; ATTEND Internal Medicine
DX: R53.1 Weakness (principal); R27.0 Ataxia, unspecified; I48.0 Paroxysmal atrial fibrillation; I11.0 Hypertensive heart disease with heart failure; I50.22 Chronic systolic (congestive) heart failure; K21.9 Gastro-esophageal reflux disease without esophagitis; J44.89 Other specified chronic obstructive pulmonary disease; F41.9 Anxiety disorder, unspecified; F31.9 Bipolar disorder, unspecified; E78.5 Hyperlipidemia, unspecified; R00.1 Bradycardia, unspecified; D64.9 Anemia, unspecified; I25.2 Old myocardial infarction; I69.354 Hemiplegia and hemiparesis following cerebral infarction affecting left non-dominant side; Z86.16 Personal history of COVID-19; Z87.891 Personal history of nicotine dependence; Z79.01 Long term (current) use of anticoagulants; Z79.899 Other long term (current) drug therapy; Z79.82 Long term (current) use of aspirin; Z79.84 Long term (current) use of oral hypoglycemic drugs; Z88.5 Allergy status to narcotic agent; Z88.0 Allergy status to penicillin; Z88.1 Allergy status to other antibiotic agents
CPT/HCPCS: 99285; 36415; 93005; 97161; 97165; 92523; 80061; 80053; 80048 ×2; 82607; 82550; 83735 ×2; 84484; 85025 ×3; 85610; 85730; 71046; 70496; 70450; 70498; G0378 ×3; Q9967

== ENCOUNTER 2024-10-03 11:44 | Observation (INO) | payer OTHER ==
--- NOTE | 2024-10-03 13:00 | ED ---
General Adult HPI - General Chief complaint: Recheck/Abnormal Lab/Rx Stated complaint: Neck pain Time Seen by Provider: 10/03/24 11:50 Source: patient, RN notes reviewed, old records reviewed Mode of arrival: ambulatory Limitations: no limitations - History of Present Illness Initial comments: This is a 64-year-old male with a past medical history significant for CVA and heart attack patient comes in today because he was having some right-sided neck pain. Patient states he also was short of breath. Patient states when he did have his heart attack he had no chest pain so this was reminiscent in some ways of his prior heart attack. Patient also states he felt very dizzy at home as well. Patient denied any syncopal episode. Patient denies any palpitations. Patient denies any recent fever chills or cough. - Related Data Home Medications Medication Instructions Recorded Confirmed Gabapentin [Neurontin] 100 mg PO HS 06/12/24 08/29/24 ALPRAZolam [Xanax] 0.5 mg PO TID PRN 06/13/24 08/29/24 Apixaban [Eliquis] 5 mg PO BID 06/13/24 08/29/24 FLUoxetine HCL [PROzac] 20 mg PO DAILY 06/13/24 08/29/24 Aspirin 81 mg PO HS 08/29/24 08/29/24 Atorvastatin [Lipitor] 40 mg PO HS 08/29/24 08/29/24 lamoTRIgine [LaMICtal] 100 mg PO HS 08/29/24 08/29/24 Previous Rx's Medication Instructions Recorded Dapagliflozin Propanediol [Farxiga] 10 mg PO DAILY 30 Days #30 tab 05/10/24 Metoprolol Succinate (ER) [Toprol 25 mg PO DAILY #90 tab 08/31/24 XL] Spironolactone [Aldactone] 12.5 mg PO DAILY #90 tab 08/31/24 lisinopriL [Zestril] 5 mg PO DAILY #90 tab 08/31/24 Allergies Allergy/AdvReac Type Severity Reaction Status Date / Time codeine Allergy Rash/Hives Verified 10/03/24 11:50 amoxicillin AdvReac Nausea Verified 10/03/24 11:50 azithromycin [From Zithromax] AdvReac Nausea Verified 10/03/24 11:50 divalproex sodium AdvReac Chest Pain Verified 10/03/24 11:50 [From Depakote] Penicillins AdvReac Nausea Verified 10/03/24 11:50 Review of Systems ROS Statement: Those systems with pertinent positive or pertinent negative responses have been documented in the HPI. ROS Other: All systems not noted in ROS Statement are negative. Past Medical History Past Medical History: Atrial Fibrillation, Asthma, Heart Failure, COPD, CVA/TIA, Eye Disorder, GERD/Reflux, Pneumonia Additional Past Medical History / Comment(s): COVID 02/21, chronic stomach pain, IBS, fluid too thin bilateral eyes/poor vision, pneumonias. heart cath no stents, EF 25/30% Last Myocardial Infarction Date:: 04/22/24 History of Any Multi-Drug Resistant Organisms: None Reported Past Surgical History: Orthopedic Surgery Additional Past Surgical History / Comment(s): L leg injury with surgery/hardware. Past Anesthesia/Blood Transfusion Reactions: No Reported Reaction Past Psychological History: Anxiety, Depression Smoking Status: Former smoker Past Alcohol Use History: None Reported Past Drug Use History: None Reported - Past Family History Father Family Medical History: Cancer Additional Family Medical History / Comment(s): Father of bone cancer Mother Family Medical History: CVA/TIA Additional Family Medical History / Comment(s): Mother is 78yrs old and has had several strokes. General Exam - General Exam Comments Initial Comments: GENERAL: Patient is well-developed and well-nourished. Patient is nontoxic and well- hydrated and is in mild distress. ENT: Neck is soft and supple. No significant lymphadenopathy is noted. Oropharynx is clear. Moist mucous membranes. Neck has full range of motion without eliciting any pain. EYES: The sclera were anicteric and conjunctiva were pink and moist. Extraocular movements were intact and pupils were equal round and reactive to light. Eyelids were unremarkable. PULMONARY: Unlabored respirations. Good breath sounds bilaterally. No audible rales rhonchi or wheezing was noted. CARDIOVASCULAR: There is a regular rate and rhythm without any murmurs gallops or rubs. ABDOMEN: Soft and nontender with normal bowel sounds. SKIN: Skin is clear with no lesions or rashes and otherwise unremarkable. NEUROLOGIC: Patient is alert and oriented x3. Cranial nerves II through XII are grossly intact. Motor and sensory are also intact. Normal speech, volume and content. Symmetrical smile. MUSCULOSKELETAL: Normal extremities with adequate strength and full range of motion. No lower extremity swelling or edema. No calf tenderness. LYMPHATICS: No significant lymphadenopathy is noted PSYCHIATRIC: Normal psychiatric evaluation. Limitations: no limitations Course Vital Signs 10/03/24 11:45 Temperature 98 F Pulse Rate 80 Respiratory 18 Rate Blood Pressure 102/69 O2 Sat by Pulse 100 Oximetry Medical Decision Making - Medical Decision Making EKG is interpreted by myself. EKG shows a sinus rhythm at 66 bpm [place] 174 QRS of 109 QT interval 372 QTc is 385. Patient's EKG shows no ST segment elevation or depression. Was pt. sent in by a medical professional or institution (, [facility], FIELD ASSOCIATE, urgent care, hospital, or assisted...) When possible be specific @ -No Did you speak to anyone other than the patient for history (EMS, parent, family, police, friend...)? What history was obtained from this source @ -No Did you review nursing and triage notes (agree or disagree)? Why? @ -I reviewed and agree with nursing and triage notes Were old charts reviewed (outside hosp., previous admission, EMS record, old EKG, old radiological studies, urgent care reports/EKG's, assisted records)? Report findings @ -No old charts were reviewed Differential Diagnosis? @ -Differential Chest Pain: Stable Angina, Unstable Angina, STEMI, NSTEMI Aortic Dissection, Pneumothorax, Musculoskeletal, Esophageal Spasm GERD, Cholecystitis, Pancreatitis, Zoster, thi s is not meant to be an all-inclusive list. EKG interpreted by me (3pts min.). @ -As above X-rays interpreted by me (1pt min.). @ -Chest x-ray shows no acute abnormality CT interpreted by me (1pt min.). @ -None done U/S interpreted by me (1pt. min.). @ -None done What testing was considered but not performed or refused? (CT, X-rays, U/S, labs)? Why? @ -None What meds were considered but not given or refused? Why? @ -None Did you discuss the management of the patient with other professionals (p rofessionals i.e. , [facility], FIELD ASSOCIATE, lab, RT, psych nurse, social science teacher, customer support analyst, teacher, principal gifts officer, case fitter)? Give summary @ -I spoke with Dr. Samuels and she agreed to admit the patient Was smoking cessation discussed for >3mins.? @ -No Was critical care preformed (if so, how long)? @ -No Were there social determinants of health that impacted care today? How? (Homelessness, low income, unemployed, alcoholism, drug addiction, transportation, low edu. Level, literacy, decrease access to med. care, skilled nursing, rehab)? @ -No Was there de-escalation of care discussed even if they declined (Discuss DNR or withdrawal of care, Hospice)? DNR status @ -No What co-morbidities impacted this encounter? (DM, HTN, Smoking, COPD, CAD, Cancer, CVA, ARF, Chemo, Hep., AIDS, mental health diagnosis, sleep apnea, morbid obesity)? @ -None Was patient admitted / discharged? Hospital course, mention meds given and route, prescriptions, significant lab abnormalities, going to OR and other pertinent info. @ -Patient continues to have some right-sided neck pain that was not worse with any movement. Patient also remains mildly short of breath. Patient received aspirin Nitropaste in the emergency department and will be admitted with a cardiology consult. Undiagnosed new problem with uncertain prognosis? @ -No Drug Therapy requiring intensive monitoring for toxicity (Heparin, Nitro, Insulin, Cardizem)? @ -No Were any procedures done? @ -No Diagnosis/symptom? @ -Atypical angina Acute, or Chronic, or Acute on Chronic? @ -Acute Uncomplicated (without systemic symptoms) or Complicated (systemic symptoms)? @ -Complicated Side effects of treatment? @ -No Exacerbation, Progression, or Severe Exacerbation? @ -No Poses a threat to life or bodily function? How? (Chest pain, USA, KS, pneumonia, PE, COPD, DKA, ARF, appy, cholecystitis, CVA, Diverticulitis, Homicidal, Suicidal, threat to staff... and all critical care pts) @ -Yes this could be a precursor to an KS and endorgan dysfunction - Lab Data Result diagrams: 10/03/24 12:53 10/03/24 12:53 Lab Results 10/03/24 10/03/24 10/03/24 Range/Units 12:53 12:53 12:53 WBC 5.45 (4.50-10.00) 10*3/uL RBC 4.65 (4.40-5.60) 10*6/uL Hgb 14.6 (13.0-17.0) g/dL Hct 42.7 (39.6-50.0) % MCV 91.8 (80.0-97.0) fL MCH 31.4 (27.0-32.0) pg MCHC 34.2 (32.0-37.0) g/dL Plt Count 203 (140-440) 10*3/uL MPV 9.8 (9.5-12.2) fL Immature Gran % (Auto) 0.6 % Neutrophils % 58.1 % Lymphocytes % 25.9 % Monocytes % 13.9 % Eosinophils % 1.1 % Basophils % 0.4 % Immature Gran # 0.03 (0.00-0.04) 10*3/uL Neutrophils # 3.17 (1.80-7.70) 10*3/uL Lymphocytes # 1.41 (0.90-5.00) 10*3/uL Monocytes # 0.76 (0.20-1.00) 10*3/uL Eosinophils # 0.06 (0.04-0.35) 10*3/uL Basophils # 0.02 (0.00-0.10) 10*3/uL PT 11.1 (10.0-12.5) sec INR 1.0 (<1.2) APTT 23.8 (22.0-30.0) sec Sodium 140 (137-145) mmol/L Potassium 4.2 (3.5-5.1) mmol/L Chloride 103 (98-107) mmol/L Carbon Dioxide 27 (22-30) mmol/L Anion Gap 10 mmol/L BUN 25 H (9-20) mg/dL Creatinine 0.98 (0.66-1.25) mg/dL Est GFR (CKD-EPI)AfAm >90 (>60 ml/min/1.73 sqM) Est GFR (CKD-EPI)NonAf 83 (>60 ml/min/1.73 sqM) Glucose 77 (74-99) mg/dL Calcium 9.5 (8.4-10.2) mg/dL Magnesium 2.2 (1.6-2.3) mg/dL Total Bilirubin 0.9 (0.2-1.3) mg/dL AST 34 (17-59) U/L ALT 61 H (4-49) U/L Alkaline Phosphatase 60 (38-126) U/L Troponin I (0.000-0.034) ng/mL Total Protein 7.4 (6.3-8.2) g/dL Albumin 4.5 (3.5-5.0) g/dL 10/03/24 Range/Units 12:53 WBC (4.50-10.00) 10*3/uL RBC (4.40-5.60) 10*6/uL Hgb (13.0-17.0) g/dL Hct (39.6-50.0) % MCV (80.0-97.0) fL MCH (27.0-32.0) pg MCHC (32.0-37.0) g/dL Plt Count (140-440) 10*3/uL MPV (9.5-12.2) fL Immature Gran % (Auto) % Neutrophils % % Lymphocytes % % Monocytes % % Eosinophils % % Basophils % % Immature Gran # (0.00-0.04) 10*3/uL Neutrophils # (1.80-7.70) 10*3/uL Lymphocytes # (0.90-5.00) 10*3/uL Monocytes # (0.20-1.00) 10*3/uL Eosinophils # (0.04-0.35) 10*3/uL Basophils # (0.00-0.10) 10*3/uL PT (10.0-12.5) sec INR (<1.2) APTT (22.0-30.0) sec Sodium (137-145) mmol/L Potassium (3.5-5.1) mmol/L Chloride (98-107) mmol/L Carbon Dioxide (22-30) mmol/L Anion Gap mmol/L BUN (9-20) mg/dL Creatinine (0.66-1.25) mg/dL Est GFR (CKD-EPI)AfAm (>60 ml/min/1.73 sqM) Est GFR (CKD-EPI)NonAf (>60 ml/min/1.73 sqM) Glucose (74-99) mg/dL Calcium (8.4-10.2) mg/dL Magnesium (1.6-2.3) mg/dL Total Bilirubin (0.2-1.3) mg/dL AST (17-59) U/L ALT (4-49) U/L Alkaline Phosphatase (38-126) U/L Troponin I <0.012 (0.000-0.034) ng/mL Total Protein (6.3-8.2) g/dL Albumin (3.5-5.0) g/dL Disposition Clinical Impression: Atypical angina Disposition: ADMITTED IP TO THIS HOSP Referrals: Deny Barrera MD [Primary Care Provider] - 1-2 days Time of Disposition: 14:36
[2024-10-03 13:11] LABS: Basophils # (A) 0.02 10*3/uL (0.00-0.10); Basophils % (A) 0.4 %; Eosinophils # (A) 0.06 10*3/uL (0.04-0.35); Eosinophils % (A) 1.1 %; HCT 42.7 % (39.6-50.0); HGB 14.6 g/dL (13.0-17.0); Lymphocytes # (A) 1.41 10*3/uL (0.90-5.00); Lymphocytes % (A) 25.9 %; MCH 31.4 pg (27.0-32.0); MCHC 34.2 g/dL (32.0-37.0); MCV 91.8 fL (80.0-97.0); Mean Platelet Volume 9.8 fL (9.5-12.2); Monocytes # (A) 0.76 10*3/uL (0.20-1.00); Monocytes % (A) 13.9 %; Neutrophils # (A) 3.17 10*3/uL (1.80-7.70); Neutrophils % (A) 58.1 %; Platelet Count 203 10*3/uL (140-440); RBC 4.65 10*6/uL (4.40-5.60); WBC 5.45 10*3/uL (4.50-10.00)
[2024-10-03] MEDS: ASPIRIN 81 MG PO STA (13:12)
[2024-10-03] MEDS: NITROGLYCERIN OINT 1 INCH/GM PACKET TOPICAL STA (13:12)
[2024-10-03 13:23] LABS: ALT 61 U/L (4-49); AST 34 U/L (17-59); African American GFR (CKD) >90 (>60 ml/min/1.73 sqM); Albumin 4.5 g/dL (3.5-5.0); Alkaline Phosphatase 60 U/L (38-126); Anion Gap 10 mmol/L; Blood Urea Nitrogen 25 mg/dL (9-20); Calcium 9.5 mg/dL (8.4-10.2); Carbon Dioxide 27 mmol/L (22-30); Chloride 103 mmol/L (98-107); Glucose 77 mg/dL (74-99); Magnesium 2.2 mg/dL (1.6-2.3); Non-African American GFR(CKD) 83 (>60 ml/min/1.73 sqM); Potassium 4.2 mmol/L (3.5-5.1); Sodium 140 mmol/L (137-145); Total Bilirubin 0.9 mg/dL (0.2-1.3); Total Protein 7.4 g/dL (6.3-8.2)
[2024-10-03 13:34] LABS: Partial Thromboplastin Time 23.8 sec (22.0-30.0); Prothrombin Time 11.1 sec (10.0-12.5)
--- NOTE | 2024-10-03 13:37 | XR ---
EXAMINATION TYPE: XR chest 2V DATE OF EXAM: 10/03/2024 CLINICAL INDICATION: Male, 64 years old with history of Chest Pain, TECHNIQUE: Frontal and lateral views of the chest are obtained. COMPARISON: Chest x-ray August 29, 2024 FINDINGS: Eventration anterior aspect right hemidiaphragm redemonstrated. There is no focal air space opacity, pleural effusion, or pneumothorax seen. The cardiac silhouette size is stable and upper li mits of normal. The osseous structures are intact. IMPRESSION: No acute process. No significant change from prior. [facility], , 10/03/2024 1:35 PM
[2024-10-03] MEDS ORDERED: NITROGLYCERIN SL TABS 0.4 MG TAB SUBLINGUAL PRN (14:36)
[2024-10-03] MEDS ORDERED: NALOXONE 0.4 MG/ML 1 ML VIAL IV PRN (15:18)
[2024-10-03] MEDS ORDERED: ALPRAZolam 0.5 MG TAB PO PRN (15:19)
[2024-10-03] MEDS: METOPROLOL SUCCINATE (ER) 25 MG TAB.ER.24H PO STA (15:36)
--- NOTE | 2024-10-03 16:55 | P.HPIM ---
History of Present Illness H&P Date: 10/03/24 Patient is a 64-year-old male with a history of atrial fibrillation on Eliquis, history of CVA (April 2024), COPD, CHF (EF 30 to 35%, sees cardiology at [facility]), substance abuse(cocaine and meth) over 15 years ago, anxiety, depression and bipolar disorder who presented to the ED today for neck pain. He states his pain began this morning radiates down into the right chest. No relieving or aggravating factors identified he also claims he has had less energy in the past few. He denies shortness of breath, palpitations, headaches, vision changes. Of note, he was admitted to this facility for strokelike symptoms in August, workup at that time including the CT head and CTA of the head and neck was negative. He was also evaluated by cardiology at the time and MARLIN performed 07/21/2024 showed EF of 30 to 35% with global hypokinesis negative for PFO. In the ED, vitals included temperature 98 Fahrenheit, pulse of 62, blood pressure 105/62, O2 sats 96 on room air. Pertinent workup includes white blood cell 5.45, hemoglobin 14.6, platelets 203, sodium 140, potassium 4.2, creatinine 0.80.98 AST 34, ALT 61. Initial troponin less than 0.012. EKG done in the ED independently reviewed by myself shows sinus rhythm with a ventricular rate of 66 with nonspecific T wave changes, no ST changes noted. Cardiology was consulted for further evaluation. Chest x-ray also independently reviewed by me shows no acute cardiopulmonary process. Pertinent positives and negatives as discussed in HPI, a complete review of systems was performed and all other systems are negative. Patient seen and examined at bedside. Vital signs reviewed General: nontoxic, no distress, appears at stated age, tattoos noted Derm: warm, dry Head: atraumatic, normocephalic, symmetric Eyes: EOMI, no lid lag, anicteric sclera, pupils equal round reactive to light ENT: Nose and ears atraumatic Neck: No thyromegaly, supple Mouth: no lip lesion, mucus membranes moist Cardiovascular: S1S2 bradycardic, no murmur, no edema, no tenderness on palpation of chest wall Lungs: clear to auscultation bilateral, no rhonchi, no rales, no wheeze, no accessory muscle use Abdominal: soft, nontender to palpation, no guarding, no appreciable organomegaly Ext: no gross muscle atrophy, muscle strength muscle strength 5 out of 5 in all 4 extremities, no contractures Neuro: CN II-XII grossly intact Psych: Alert, oriented, appropriate affect Assessment/Plan: Assessment Neck pain: Rule out ACS, Troponins x 2 have been negative. EKG with no ST changes indicative of ischemia. Aspirin 324 mg given once in the ED. continue aspirin 81 mg, statin 40 mg daily Cardiology consult for further evaluation Telemetry monitoring Atrial fibrillation: Continue metoprolol, Eliquis for anticoagulation COPD not on home oxygen, stable Congestive heart failure, not in acute exacerbation Continue GDMT, currently on Farxiga, decrease metoprolol to 12.5 mg due to bradycardia, lisinopril 5 mg daily, spironolactone 12.5 mg daily Anxiety Depression Bipolar disorder Continue lamotrigine, gabapentin, Xanax as needed The patient is admitted with an anticipated greater than 2 midnight stay as observation status for evaluation of neck pain. Surrogate decision-maker: CODE STATUS:FULL COSE DVT prophylaxis: Eliquis Anticipated discharge date: Pending cardiology evaluation Anticipated discharge place: Home A total of 40 minutes was spent on the care of this complex patient more than 50% of the time was spent in counseling and care coordination. Past Medical History Past Medical History: Atrial Fibrillation, Asthma, Heart Failure, COPD, CVA/TIA, Eye Disorder, GERD/Reflux, Pneumonia Additional Past Medical History / Comment(s): COVID 02/21, chronic stomach pain, IBS, fluid too thin bilateral eyes/poor vision, pneumonias. heart cath no stents, EF 25/30% Last Myocardial Infarction Date:: 04/22/24 History of Any Multi-Drug Resistant Organisms: None Reported Past Surgical History: Orthopedic Surgery Additional Past Surgical History / Comment(s): L leg injury with surgery/hardware. Past Anesthesia/Blood Transfusion Reactions: No Reported Reaction Past Psychological History: Anxiety, Depression Smoking Status: Former smoker Past Alcohol Use History: None Reported Past Drug Use History: None Reported - Past Family History Father Family Medical History: Cancer Additional Family Medical History / Comment(s): Father of bone cancer Mother Family Medical History: CVA/TIA Additional Family Medical History / Comment(s): Mother is 78yrs old and has had several strokes. Medications and Allergies Home Medications Medication Instructions Recorded Confirmed Type Dapagliflozin Propanediol [Farxiga] 10 mg PO DAILY 30 Days #30 tab 05/10/24 08/29/24 Rx Gabapentin [Neurontin] 100 mg PO HS 06/12/24 08/29/24 History ALPRAZolam [Xanax] 0.5 mg PO TID PRN 06/13/24 08/29/24 History Apixaban [Eliquis] 5 mg PO BID 06/13/24 08/29/24 History FLUoxetine HCL [PROzac] 20 mg PO DAILY 06/13/24 08/29/24 History Aspirin 81 mg PO HS 08/29/24 08/29/24 History Atorvastatin [Lipitor] 40 mg PO HS 08/29/24 08/29/24 History lamoTRIgine [LaMICtal] 100 mg PO HS 08/29/24 08/29/24 History Metoprolol Succinate (ER) [Toprol 25 mg PO DAILY #90 tab 08/31/24 Rx XL] Spironolactone [Aldactone] 12.5 mg PO DAILY #90 tab 08/31/24 Rx lisinopriL [Zestril] 5 mg PO DAILY #90 tab 08/31/24 Rx Allergies Allergy/AdvReac Type Severity Reaction Status Date / Time codeine Allergy Rash/Hives Verified 10/03/24 11:50 amoxicillin AdvReac Nausea Verified 10/03/24 11:50 azithromycin [From Zithromax] AdvReac Nausea Verified 10/03/24 11:50 divalproex sodium AdvReac Chest Pain Verified 10/03/24 11:50 [From Depakote] Penicillins AdvReac Nausea Verified 10/03/24 11:50 Physical Exam Vitals: Vital Signs Temp Pulse Resp BP Pulse Ox 10/03/24 15:36 51 L 18 105/62 96 10/03/24 11:45 98 F 80 18 102/69 100 Intake and Output 10/03/24 10/03/24 10/03/24 06:59 14:59 22:59 Other: Weight 72.575 kg Results CBC & Chem 7: 10/03/24 12:53 10/03/24 12:53 Labs: Abnormal Lab Results - Last 24 Hours (Table) 10/03/24 Range/Units 12:53 BUN 25 H (9-20) mg/dL ALT 61 H (4-49) U/L
[2024-10-03] MEDS: NITROGLYCERIN OINT 1 INCH/GM PACKET TOPICAL SCH (17:29)
[2024-10-03] MEDS: ASPIRIN 81 MG PO SCH (21:35)
[2024-10-03] MEDS: lamoTRIgine 100 MG TAB PO SCH (21:36)
[2024-10-03] MEDS: ATORVASTATIN 40 MG TAB PO SCH (21:36)
[2024-10-03] MEDS: APIXABAN 5 MG TAB PO SCH (21:36)
[2024-10-03] MEDS: GABAPENTIN 100 MG CAP PO SCH (21:36)
[2024-10-03] MEDS: ACETAMINOPHEN TAB 325 MG TAB PO PRN (22:02)
[2024-10-04 07:34] LABS: Basophils # (A) 0.02 10*3/uL (0.00-0.10); Basophils % (A) 0.5 %; Eosinophils # (A) 0.08 10*3/uL (0.04-0.35); Eosinophils % (A) 1.9 %; HCT 37.5 % (39.6-50.0); HGB 12.8 g/dL (13.0-17.0); Lymphocytes # (A) 1.55 10*3/uL (0.90-5.00); Lymphocytes % (A) 37.3 %; MCH 30.9 pg (27.0-32.0); MCHC 34.1 g/dL (32.0-37.0); MCV 90.6 fL (80.0-97.0); Mean Platelet Volume 9.5 fL (9.5-12.2); Monocytes # (A) 0.56 10*3/uL (0.20-1.00); Monocytes % (A) 13.5 %; Neutrophils # (A) 1.92 10*3/uL (1.80-7.70); Neutrophils % (A) 46.3 %; Platelet Count 183 10*3/uL (140-440); RBC 4.14 10*6/uL (4.40-5.60); RDW 12.9 % (11.5-14.5); WBC 4.15 10*3/uL (4.50-10.00)
[2024-10-04 07:40] VITALS: PULSE 54; RESP 18; TEMP 98
[2024-10-04 08:00] LABS: African American GFR (CKD) >90 (>60 ml/min/1.73 sqM); Anion Gap 9 mmol/L; Blood Urea Nitrogen 25 mg/dL (9-20); Calcium 9.1 mg/dL (8.4-10.2); Carbon Dioxide 24 mmol/L (22-30); Chloride 105 mmol/L (98-107); Glucose 96 mg/dL (74-99); Non-African American GFR(CKD) 87 (>60 ml/min/1.73 sqM); Potassium 4.1 mmol/L (3.5-5.1); Sodium 138 mmol/L (137-145)
[2024-10-04] MEDS ORDERED: METOPROLOL SUCCINATE (ER) 25 MG TAB.ER.24H PO SCH (09:00)
[2024-10-04] MEDS ORDERED: ASPIRIN 325 MG TAB PO SCH (09:00)
[2024-10-04 09:24] VITALS: BP 111/66
[2024-10-04] MEDS: FLUoxetine HCL 20 MG CAP PO SCH (09:26)
--- NOTE | 2024-10-04 10:28 | P.DS ---
Providers Date of admission: 10/03/24 14:37 Expected date of discharge: 10/04/24 Attending physician: Deedee Villaseñor MD Consults: 10/03/24 14:37 Consult Physician Urgent Consulting Provider: [facility] Consult Reason/Comments: Atypical angina Do you want consulting provider notified?: Yes Primary care physician: Deny Barrera Hospital Course: Discharge Diagnosis: Neck pain with right sided chest pain, acute coronary event ruled out Asymptomatic bradycardia Paroxysmal atrial fibrillation Chronic systolic heart failure History of CVA Hypertension Hyperlipidemia Hospital Course: Patient is a very pleasant 64-year-old male with a past medical history of paroxysmal atrial fibrillation on anticoagulation with Eliquis, chronic systolic heart failure with previous EF of 30 to 35%, hypertension, hyperlipidemia, history of CVA in April 2024, COPD not home oxygen dependent, substance abuse with cocaine and methamphetamines over 15 years ago, anxiety depression, and bipolar disorder. He presented to our facility on 10/03/2024 with a chief complaint of neck pain. Patient reported pain in the back of his neck radiating into right anterior chest. Upon arrival to our facility, patient underwent evaluation in the emergency department. Vital signs upon arrival show blood pressure 102/69, heart rate 80, respiratory rate 18, temp 98.0 F, and SpO2 100% on room air. EKG completed showing sinus rhythm at 66 bpm with nonspecific T wave abnormality. Chest x-ray completed negative for acute cardiopulmonary process. Labs completed and reviewed. CBC and coagulation profile normal findings. BMP showing mild prerenal azotemia with BUN of 25 otherwise normal findings. Blood glucose 77. Magnesium 2.0. Liver profile showing elevated ALT of 61 otherwise normal findings. Troponin was negative at less than 0.012. Patient was admitted under our services with consultation to cardiology. Troponins were trended all negative at less than 0.012 x 3 draws. Repeat morning EKG showing sinus bradycardia at 54 bpm with nonspecific T wave abnormality. Patient reported feeling much better stating full resolution of neck and right sided chest pain. He was evaluated by cardiology clearing patient from their perspective recommending no medication changes and for patient to follow-up outpatient with his primary [facility] operator at [place]. Patient is medically optimized at this time. Vital signs as follows blood pressure 111/66, heart rate 54, respiratory rate 18, temp 98.0 F, and SpO2 of 93% on room air. Patient instructed he will need to follow-up outpatient with his PCP in 1 to 2 days and patient to follow-up with his primary [facility] operator at [place] within the next week, patient also provided with local unis[facility] operator information if he chooses to follow someone locally. No medication changes were made during this admission Physical exam: Patient seen and examined at bedside. Vital signs reviewed and stable. General: Nontoxic, no distress and appears stated age. Derm: Skin warm and dry, normal coloration for ethnicity. Head: Atraumatic, normocephalic and symmetric. Eyes: EOM's intact, no lid lag, and anicteric sclera Mouth: no lip lesions, mucus membranes moist Cardiovascular: regular rate and rhythm with normal S1S2, no murmur, positive posterior tibial pulses bilaterally, and cap refill < 2 seconds. Lungs: Respirations even, regular, and unlabored on room air. Lungs CTA bilaterally, no rhonchi, no rales, no wheezing, and no accessory muscle usage. Abdominal: soft, nontender to palpation, no guarding, no appreciable organomegaly Ext: ROM intact. No gross muscle atrophy, no edema, no contractures Neuro: Speech clear, face symmetrical and CN II-XII grossly intact with no noted focal neuro deficits Psych: Alert and oriented to person, place, time, and situation. Appropriate and pleasant affect. A total of 33 minutes of time were spent preparing this complex discharge summary. Pt was discharged on 10/04/2024 at 10:26 AM. Patient was seen independently by Nurse Practitioner. This document was prepared using [employer] dictation software. Please allow for errors in chief communications officer while rare they do occur. Abhay Oates NP rendered care for this patient independently, reviewed the findings and plan as documented in the note above. I did not physically speak with or examine the patient on this date. Patient Condition at Discharge: Stable Plan - Discharge Summary New Discharge Prescriptions: Continue FLUoxetine HCL [PROzac] 20 mg PO DAILY lamoTRIgine [LaMICtal] 50 mg PO HS Atorvastatin [Lipitor] 40 mg PO HS Spironolactone [Aldactone] 12.5 mg PO DAILY #90 tab Dapagliflozin Propanediol [Farxiga] 10 mg PO DAILY 30 Days #30 tab Gabapentin [Neurontin] 100 mg PO HS ALPRAZolam [Xanax] 0.5 mg PO TID PRN PRN Reason: Anxiety Apixaban [Eliquis] 5 mg PO BID Aspirin 81 mg PO HS Metoprolol Succinate (ER) [Toprol XL] 25 mg PO DAILY #90 tab lisinopriL [Zestril] 5 mg PO DAILY #90 tab Discharge Medication List Dapagliflozin Propanediol [Farxiga] 10 mg PO DAILY 30 Days #30 tab 05/10/24 [Rx] Gabapentin [Neurontin] 100 mg PO HS 06/12/24 [History] ALPRAZolam [Xanax] 0.5 mg PO TID PRN 06/13/24 [History] Apixaban [Eliquis] 5 mg PO BID 06/13/24 [History] FLUoxetine HCL [PROzac] 20 mg PO DAILY 06/13/24 [History] Aspirin 81 mg PO HS 08/29/24 [History] Atorvastatin [Lipitor] 40 mg PO HS 08/29/24 [History] lamoTRIgine [LaMICtal] 50 mg PO HS 08/29/24 [History] Metoprolol Succinate (ER) [Toprol XL] 25 mg PO DAILY #90 tab 08/31/24 [Rx] Spironolactone [Aldactone] 12.5 mg PO DAILY #90 tab 08/31/24 [Rx] lisinopriL [Zestril] 5 mg PO DAILY #90 tab 08/31/24 [Rx] Follow up Appointment(s)/Referral(s): Jaguar Mendoza MD [Medical Doctor] - As Needed (Local unis[facility] operator you may follow up with if you do not follow up with your primary cardiolist out of [place] and choose to see someone local. ) Deny Barrera MD [Primary Care Provider] - 1-2 days Patient Instructions/Handouts: Chest Pain (DC), Neck Pain (DC) Activity/Diet/Wound Care/Special Instructions: Activity: As tolerated. Take breaks as needed. Diet: Heart healthy and carb consistent diet. Avoid salts, or foods with hidden salts such as canned or boxed foods and frozen dinners. Extra salt makes your heart work harder and traps the fluid in your body for longer. Special Instructions: Take all of your medications as directed and remember to keep all of your doctor's appointments and follow-up as needed. You will need to call your unisaw operator at [place] to schedule an outpatient follow-up appointment. Thank you for allowing us to participate in your care, it was truly a pleasure having you for our patient!!! Discharge Disposition: HOME SELF-CARE
[2024-10-04] MEDS: SPIRONOLACTONE 25 MG TAB PO SCH (12:04)
--- NOTE | 2024-10-04 12:14 | P.CRDCN ---
History of Present Illness History of present illness: HISTORY OF PRESENT ILLNESS: This is a 64-year-old male with a past medical history significant for paroxysmal atrial fibrillation, nonischemic cardiomyopathy, palpitations, CVA, and former nicotine dependence. Patient follows in the office with Dr. Arnaa. We have been asked to see the patient in consultation for chest pain. Patient examined at the bedside. Patient states yesterday he woke up with chest discomfort that radiated into his neck. He states that he came to the hospital and was given aspirin and Nitropaste which relieved his pain. He denies having any further episodes of chest pain or pressure since. Patient has been up ambulating to the bathroom without difficulty. He denies any shortness of breath. Vital signs are stable. Patient's blood pressures are soft which he states is his baseline. DIAGNOSTICS: - EKG reveals sinus mechanism with no signs of acute ischemia. - Chest xray negative for acute process. No significant change from prior. - Laboratory data: WBC 4.15. Hemoglobin 12.8. Platelet count 183. Sodium 138. Potassium 4.1. BUN 25. Creatinine 0.94. Magnesium 2.2. Troponin negative x 3. - Current home cardiac medications include lisinopril 5 mg daily, Aldactone 12.5 mg daily, metoprolol succinate 25 mg daily, Farxiga 10 mg daily, Lipitor 40 mg at night, aspirin 81 mg at night, Eliquis 5 mg twice daily. - Most recent echocardiogram obtained in May 2024 revealed ejection fraction 25% with global hypokinesis, no PFO -Patient underwent MARLIN in July 2024 with no PFO, no thrombus, EF 30 to 35% - Cardiac catheterization history: April 2021 revealing normal coronary arteries REVIEW OF SYSTEMS: At the time of my exam: CONSTITUTIONAL: Denies fever or chills. HEENT: Denies blurred vision, vision changes, or eye pain. Denies hemoptysis CARDIOVASCULAR: Denies chest pain. Denies orthopnea. Denies PND. Denies palpitations RESPIRATORY: Denies shortness of breath. GASTROINTESTINAL: Denies abdominal pain. Denies nausea or vomiting. HEMATOLOGIC: Denies bleeding disorders. GENITOURINARY: Denies any blood in urine. SKIN: Denies pruitis. Denies rash. PHYSICAL EXAM: VITAL SIGNS: Reviewed. GENERAL: Well-developed in no acute distress. HEENT: Head is normocephalic. Pupils are equal, round. Sclerae anicteric. Mucous membranes of the mouth are moist. Neck supple. No JVD or thyromegaly LUNGS: Respirations even and unlabored. Lungs essentially clear to auscultation bilaterally. HEART: Regular rate and rhythm. S1 and S2 heard. ABDOMEN: Soft. Nondistended. Nontender. EXTREMITIES: Normal range of motion. No clubbing or cyanosis. Peripheral pulses intact. No lower extremity edema NEUROLOGIC: Awake and alert. Oriented x 3. ASSESSMENT: Chest pain, atypical, troponin negative x 3, ACS rule out History of nonischemic cardiomyopathy, 30% Paroxysmal atrial fibrillation History of CVA History of palpitations Former nicotine dependence PLAN: An acute coronary event has been ruled out Resume home cardiac medications as listed above Patient is stable for discharge home today from a cardiac standpoint Patient to follow-up postdischarge with Dr. Arana Nurse practitioner note has been reviewed by physician. Signing provider agrees with the documented findings, assessment, and plan of care documented by [facility] as a scribe. Past Medical History Past Medical History: Atrial Fibrillation, Asthma, Heart Failure, COPD, CVA/TIA, Eye Disorder, GERD/Reflux, Pneumonia Additional Past Medical History / Comment(s): COVID 02/21, chronic stomach pain, IBS, fluid too thin bilateral eyes/poor vision, pneumonias. heart cath no stents, EF 25/30% Last Myocardial Infarction Date:: 04/22/24 History of Any Multi-Drug Resistant Organisms: None Reported Past Surgical History: Orthopedic Surgery Additional Past Surgical History / Comment(s): L leg injury with surgery/hardware with removal. Past Anesthesia/Blood Transfusion Reactions: No Reported Reaction Past Psychological History: Anxiety, Depression Additional Psychological History / Comment(s): Pt has an adult son residing with him. Pt is independent. Smoking Status: Former smoker Past Alcohol Use History: None Reported Past Drug Use History: Cocaine, Methamphetamine Additional Drug Use History / Comment(s): Pt states he's been clean for 17 years. - Past Family History Father Family Medical History: Cancer Additional Family Medical History / Comment(s): Father of bone cancer Mother Family Medical History: CVA/TIA Additional Family Medical History / Comment(s): Mother is 78yrs old and has had several strokes. Medications and Allergies Home Medications Medication Instructions Recorded Confirmed Type Dapagliflozin Propanediol [Farxiga] 10 mg PO DAILY 30 Days #30 tab 05/10/24 10/03/24 Rx Gabapentin [Neurontin] 100 mg PO HS 06/12/24 10/03/24 History ALPRAZolam [Xanax] 0.5 mg PO TID PRN 06/13/24 10/03/24 History Apixaban [Eliquis] 5 mg PO BID 06/13/24 10/03/24 History FLUoxetine HCL [PROzac] 20 mg PO DAILY 06/13/24 10/03/24 History Aspirin 81 mg PO HS 08/29/24 10/03/24 History Atorvastatin [Lipitor] 40 mg PO HS 08/29/24 10/03/24 History lamoTRIgine [LaMICtal] 50 mg PO HS 08/29/24 10/03/24 History Metoprolol Succinate (ER) [Toprol 25 mg PO DAILY #90 tab 08/31/24 10/03/24 Rx XL] Spironolactone [Aldactone] 12.5 mg PO DAILY #90 tab 08/31/24 10/03/24 Rx lisinopriL [Zestril] 5 mg PO DAILY #90 tab 08/31/24 10/03/24 Rx Allergies Allergy/AdvReac Type Severity Reaction Status Date / Time codeine Allergy Rash/Hives Verified 10/03/24 19:54 amoxicillin AdvReac Nausea Verified 10/03/24 19:54 azithromycin [From Zithromax] AdvReac Nausea Verified 10/03/24 19:54 divalproex sodium AdvReac Chest Pain Verified 10/03/24 19:54 [From Depakote] Penicillins AdvReac Nausea Verified 10/03/24 19:54 Physical Exam Vitals: Vital Signs Temp Pulse Pulse Resp BP BP Pulse Ox 10/04/24 09:24 111/66 10/04/24 07:00 98 F 54 L 18 89/56 93 L 10/04/24 06:49 100/57 10/04/24 01:29 97.9 F 62 16 94/47 92 L 10/03/24 20:26 98 F 64 16 103/62 95 10/03/24 18:00 73 17 104/63 98 10/03/24 15:36 51 L 18 105/62 96 10/03/24 11:45 98 F 80 18 102/69 100 Intake and Output 10/03/24 10/04/24 10/04/24 22:59 06:59 14:59 Other: Voiding Method Toilet Toilet # Voids 1 1 Weight 72.575 kg Results 10/04/24 07:16 10/04/24 07:16 Cardiac Enzymes 10/03/24 10/03/24 10/03/24 Range/Units 12:53 12:53 15:52 AST 34 (17-59) U/L Troponin I <0.012 <0.012 (0.000-0.034) ng/mL 10/03/24 Range/Units 20:21 AST (17-59) U/L Troponin I <0.012 (0.000-0.034) ng/mL Coagulation 10/03/24 Range/Units 12:53 PT 11.1 (10.0-12.5) sec APTT 23.8 (22.0-30.0) sec CBC 10/03/24 10/04/24 Range/Units 12:53 07:16 WBC 5.45 4.15 L (4.50-10.00) 10*3/uL RBC 4.65 4.14 L (4.40-5.60) 10*6/uL Hgb 14.6 12.8 L (13.0-17.0) g/dL Hct 42.7 37.5 L (39.6-50.0) % Plt Count 203 183 (140-440) 10*3/uL Comprehensive Metabolic Panel 10/03/24 10/04/24 Range/Units 12:53 07:16 Sodium 140 138 (137-145) mmol/L Potassium 4.2 4.1 (3.5-5.1) mmol/L Chloride 103 105 (98-107) mmol/L Carbon Dioxide 27 24 (22-30) mmol/L BUN 25 H 25 H (9-20) mg/dL Creatinine 0.98 0.94 (0.66-1.25) mg/dL Glucose 77 96 (74-99) mg/dL Calcium 9.5 9.1 (8.4-10.2) mg/dL AST 34 (17-59) U/L ALT 61 H (4-49) U/L Alkaline Phosphatase 60 (38-126) U/L Total Protein 7.4 (6.3-8.2) g/dL Albumin 4.5 (3.5-5.0) g/dL Current Medications Generic Name Dose Route Start Last Admin Trade Name Freq PRN Reason Stop Dose Admin Acetaminophen 650 mg 10/03/24 21:53 10/03/24 22:02 Acetaminophen Tab 325 Mg Tab PO 650 mg Q6HR PRN Administration Fever and/ or Pain Alprazolam 0.5 mg 10/03/24 15:19 Alprazolam 0.5 Mg Tab PO TID PRN Anxiety Apixaban 5 mg 10/03/24 21:00 10/04/24 09:26 Apixaban 5 Mg Tab PO 5 mg BID KADEN Administration Protocol Aspirin 81 mg 10/03/24 21:00 10/03/24 21:35 Aspirin 81 Mg PO Not Given HS KADEN Atorvastatin Calcium 40 mg 10/03/24 21:00 10/03/24 21:36 Atorvastatin 40 Mg Tab PO 40 mg HS KADEN Administration Dapagliflozin 10 mg 10/04/24 09:00 Dapagliflozin Propanediol 10 Mg Tablet PO DAILY KADEN Fluoxetine HCl 20 mg 10/04/24 09:00 10/04/24 09:26 Fluoxetine Hcl 20 Mg Cap PO 20 mg DAILY KADEN Administration Gabapentin 100 mg 10/03/24 21:00 10/03/24 21:36 Gabapentin 100 Mg Cap PO 100 mg HS KADEN Administration Lamotrigine 100 mg 10/03/24 21:00 10/03/24 21:36 Lamotrigine 100 Mg Tab PO 100 mg HS KADEN Administration Lisinopril 5 mg 10/04/24 09:00 Lisinopril 5 Mg Tab PO DAILY KADEN Metoprolol Succinate 12.5 mg 10/04/24 09:00 Metoprolol Succinate (Er) 25 Mg Tab.Er.24h PO DAILY KADEN Naloxone HCl 0.2 mg 10/03/24 15:18 Naloxone 0.4 Mg/Ml 1 Ml Vial IV Q2M PRN Opioid Reversal Nitroglycerin 0.4 mg 10/03/24 14:36 Nitroglycerin Sl Tabs 0.4 Mg Tab SUBLINGUAL Q5M PRN Chest Pain Spironolactone 12.5 mg 10/04/24 09:00 Spironolactone 25 Mg Tab PO DAILY KADEN Intake and Output 10/03/24 10/04/24 10/04/24 22:59 06:59 14:59 Other: Voiding Method Toilet Toilet # Voids 1 1 Weight 72.575 kg 10/04/24 07:16 10/04/24 07:16
[2024-10-04] MEDS: METOPROLOL SUCCINATE (ER) 25 MG TAB.ER.24H PO SCH ×2 (12:44→12:48)
[2024-10-04] MEDS: DAPAGLIFLOZIN PROPANEDIOL 10 MG TABLET PO SCH (12:48)
[2024-10-04] MEDS: lisinopriL 5 MG TAB PO SCH (12:48)
[2024-10-04 15:06] LABS: Chol/HDL Ratio 3.22 Ratio; LDL Cholesterol,Calculated 65.2 mg/dL (0.0-131.0); VLDL Calculation 14.76 mg/dL (5.00-40.00)
== END 2024-10-04 13:15 | disposition home or self-care (01) ==
LOC: EC 11:44 → 6NMEDSUR 14:37 → 1SOBS 18:46
PROVIDERS: ADMIT Student in an Organized Health Care Education/Training Program; ATTEND Student in an Organized Health Care Education/Training Program
DX: R07.89 Other chest pain (principal); M54.2 Cervicalgia; I42.8 Other cardiomyopathies; I11.0 Hypertensive heart disease with heart failure; I50.22 Chronic systolic (congestive) heart failure; J44.9 Chronic obstructive pulmonary disease, unspecified; I48.0 Paroxysmal atrial fibrillation; R94.31 Abnormal electrocardiogram [ECG] [EKG]; R79.89 Other specified abnormal findings of blood chemistry; R00.1 Bradycardia, unspecified; E78.5 Hyperlipidemia, unspecified; F41.9 Anxiety disorder, unspecified; F31.9 Bipolar disorder, unspecified; R74.01 Elevation of levels of liver transaminase levels; I25.2 Old myocardial infarction; Z79.01 Long term (current) use of anticoagulants; Z79.82 Long term (current) use of aspirin; Z79.84 Long term (current) use of oral hypoglycemic drugs; Z79.899 Other long term (current) drug therapy; Z88.0 Allergy status to penicillin; Z88.1 Allergy status to other antibiotic agents; Z88.5 Allergy status to narcotic agent; Z88.8 Allergy status to other drugs, medicaments and biological substances; Z87.891 Personal history of nicotine dependence; Z86.73 Personal history of transient ischemic attack (TIA), and cerebral infarction without residual deficits; Z87.898 Personal history of other specified conditions
CPT/HCPCS: 99284; 36415; 93005; 80061; 80053; 80048; 83735; 84484; 85025 ×2; 85610; 85730; 71046; G0378 ×3

== ENCOUNTER → 2024-10-19 | Outpatient (CLI) | payer OTHER ==
--- NOTE | 2024-10-19 14:36 | CT ---
EXAMINATION TYPE: CT angio neck DATE OF EXAM: 10/19/2024 COMPARISON: 08/29/2024 CLINICAL INDICATION: Male, 64 years old with history of R51.9 HEADACHE M54.2 CERVICALGIA; PHH, HX of stroke TECHNIQUE: CTA scan of the head and neck is performed with IV Contrast, patient injected with 100ml mL of Isovue 370, axial images are obtained, coronal and sagittal reformatted images are reviewed. 3D reconstructed images are created on an independent workstation and reviewed. CT DLP: 291.[address] CTDI: mGy Automated exposure control for dose reduction was used. NASCET criteria was used in interpretation of this exam? FINDINGS: FINDINGS: The brachiocephalic origins are widely patent and no significant stenosis. There is no significant stenosis of the common or internal carotid arteries within the neck. There is no stenosis of the vertebral arteries. IMPRESSION:. 1. No significant common or internal carotid artery stenosis bilaterally. 2. No significant stenosis of the vertebral arteries. The right uterine artery is dominant. 3. no interval change compared to 08/29/2024 NASCET criteria was used in interpretation of this exam? [facility], Workstation: KELLY 10/19/2024 2:34 PM
--- NOTE | 2024-10-19 14:54 | CT ---
EXAMINATION TYPE: CT brain wo con DATE OF EXAM: 10/19/2024 COMPARISON: 08/21/2024 CLINICAL INDICATION: Male, 64 years old with history of R51.9 HEADACHE M54.2 CERVICALGIA; PHH, HX of stroke CT DLP: 291.4 mGycm Automated exposure control for dose reduction was used. Findings: The ventricles, basal cisterns and sulci over convexities are moderately enlarged consistent with mod erate generalized atrophy. There is a large area of encephalomalacia involving the right temporoparietal region consistent with a remote infarct. There is no acute intra or extra-axial hemorrhage. There is no mass effect or shift of midline structures. The posterior fossa including the brainstem, fourth ventricle and cerebellopontine angles are grossly normal. The intraorbital contents appear normal and symmetric. Visualized paranasal sinuses are well aerated. IMPRESSION: 1. No acute bleed or mass effect. 2. No interval change. 3. Large remote infarct of the right temporoparietal region. 4. Stable moderate generalized atrophy. [facility], Workstation: KELLY 10/19/2024 2:52 PM
== END | disposition home or self-care (01) ==
LOC: RADCTMAIN 13:38
PROVIDERS: ATTEND Family Medicine
DX: G31.1 Senile degeneration of brain, not elsewhere classified (principal); M54.2 Cervicalgia
CPT/HCPCS: 70450; 70498; Q9967

== ENCOUNTER 2024-11-20 19:25 | Emergency (ER) | payer OTHER ==
--- NOTE | 2024-11-20 19:45 | ED ---
General Adult HPI - General Chief complaint: Neuro Symptoms/Deficit Stated complaint: Slurred speech, Jaw pain Time Seen by Provider: 11/20/24 19:28 Source: patient Mode of arrival: ambulatory Limitations: no limitations - History of Present Illness Initial comments: Dictation was produced using [employer] dictation software. please excuse any grammatical, word or spelling errors. Chief Complaint: 64-year-old male with history of CVA in 2019 presents to the emergency department with neurologic issues History of Present Illness: Patient 64-year-old male for the last week or so he has been having issues with speech difficulty, lipsmacking. He has a history of CVA. 2019 he had a large right-sided stroke. He states that he initially had significant left-sided deficits however after several months of therapy he was able to regain ambulation. States for the last 7 days he has been having difficulty eating. Daughter at the bedside states that he has been having this lipsmacking sensation to his mouth. Otherwise has no other complaints. Does have a mild headache. Patient states that his headache is typical of headaches he is experienced in the past which are occipital and posterior cervical. The ROS documented in this emergency department record has been reviewed and confirmed by me. Those systems with pertinent positive or negative responses have been documented in the HPI. All other systems are other negative and/or noncontributory. - Related Data Home Medications Medication Instructions Recorded Confirmed Gabapentin [Neurontin] 100 mg PO HS 06/12/24 10/03/24 ALPRAZolam [Xanax] 0.5 mg PO TID PRN 06/13/24 10/03/24 Apixaban [Eliquis] 5 mg PO BID 06/13/24 10/03/24 FLUoxetine HCL [PROzac] 20 mg PO DAILY 06/13/24 10/03/24 Aspirin 81 mg PO HS 08/29/24 10/03/24 Atorvastatin [Lipitor] 40 mg PO HS 08/29/24 10/03/24 lamoTRIgine [LaMICtal] 50 mg PO HS 08/29/24 10/03/24 Previous Rx's Medication Instructions Recorded Dapagliflozin Propanediol [Farxiga] 10 mg PO DAILY 30 Days #30 tab 05/10/24 Metoprolol Succinate (ER) [Toprol 25 mg PO DAILY #90 tab 08/31/24 XL] Spironolactone [Aldactone] 12.5 mg PO DAILY #90 tab 08/31/24 lisinopriL [Zestril] 5 mg PO DAILY #90 tab 08/31/24 Allergies Allergy/AdvReac Type Severity Reaction Status Date / Time codeine Allergy Rash/Hives Verified 11/20/24 19:33 amoxicillin AdvReac Nausea Verified 11/20/24 19:33 azithromycin [From Zithromax] AdvReac Nausea Verified 11/20/24 19:33 divalproex sodium AdvReac Chest Pain Verified 11/20/24 19:33 [From Depakote] Penicillins AdvReac Nausea Verified 11/20/24 19:33 Review of Systems ROS Statement: Those systems with pertinent positive or pertinent negative responses have been documented in the HPI. ROS Other: All systems not noted in ROS Statement are negative. Past Medical History Past Medical History: Atrial Fibrillation, Asthma, Heart Failure, COPD, CVA/TIA, Eye Disorder, GERD/Reflux, Pneumonia Additional Past Medical History / Comment(s): COVID 02/21, chronic stomach pain, IBS, fluid too thin bilateral eyes/poor vision, pneumonias. heart cath no stents, EF 25/30% Last Myocardial Infarction Date:: 04/22/24 History of Any Multi-Drug Resistant Organisms: None Reported Past Surgical History: Orthopedic Surgery Additional Past Surgical History / Comment(s): L leg injury with surgery/hardware with removal. Past Anesthesia/Blood Transfusion Reactions: No Reported Reaction Past Psychological History: Anxiety, Depression Smoking Status: Former smoker Past Alcohol Use History: None Reported Past Drug Use History: None Reported, Cocaine, Methamphetamine - Past Family History Father Family Medical History: Cancer Additional Family Medical History / Comment(s): Father of bone cancer Mother Family Medical History: CVA/TIA Additional Family Medical History / Comment(s): Mother is 78yrs old and has had several strokes. General Exam - General Exam Comments Initial Comments: PHYSICAL EXAM: General Impression: Alert and oriented x3, not in acute distress, mild dystonic reactions to the face HEENT: Normocephalic atraumatic, extra-ocular movements intact, pupils equal and reactive to light bilaterally, mucous membranes moist. Cardiovascular: Heart regular rate and rhythm Chest: Able to complete full sentences, no retractions, no tachypnea Abdomen: abdomen soft, non-tender, non-distended, no organomegaly Musculoskeletal: Pulses present and equal in all extremities, no peripheral edema Motor: no focal deficits noted Neurological: CN II-XII grossly intact, no focal motor or sensory deficits noted Skin: Intact with no visualized rashes Psych: Normal affect and mood Limitations: no limitations Course Vital Signs 11/20/24 19:28 Temperature 98.4 F Pulse Rate 100 Respiratory 19 Rate Blood Pressure 130/87 O2 Sat by Pulse 98 Oximetry EKG Findings - EKG Comments: EKG Findings:: My EKG interpretation: Ventricular rate 94, sinus rhythm, ME 174, cures 90, QTc 343. No ME prolongation, no QTC prolongation, no ST or T-wave changes noted. Overall, this EKG is unremarkable Medical Decision Making - Medical Decision Making Was pt. sent in by a medical professional or institution ([facility], HYDROPULPER, urgent care, hospital, or long term...) When possible be specific @ -[No] Did you speak to anyone other than the patient for history (EMS, parent, family, police, friend...)? What history was obtained from this source @ -[No] Did you review nursing and triage notes (agree or disagree)? Why? @ -[I reviewed and agree with nursing and triage notes] Were old charts reviewed (outside hosp., previous admission, EMS record, old EKG, old radiological studies, urgent care reports/EKG's, long term records)? Report findings @ -[No old charts were reviewed] Differential Diagnosis (chest pain, altered mental status, abdominal pain women, abdominal pain men, vaginal bleeding, musculoskeletal, weakness, fever, dyspnea, syncope, headache, dizziness, GI bleed, back pain, seizure, CVA, palpatations, mental health)? @ - Differential CVA: Ischemic stroke, hemorrhagic stroke, brain tumor, atypical migraine, Wernicke's encephalopathy, seizure, multiple sclerosis, meningitis, encephalitis, hypoglycemia, Guillain-Ryder, electrolytes disturbance, myasthenia gravis.... This is not meant to be an all-inclusive list EKG interpreted by me (3pts min.). @ -[None done] X-rays interpreted by me (1pt min.). @ -[None done] CT interpreted by me (1pt min.). @ -CT brain is nonacute U/S interpreted by me (1pt. min.). @ -[None done] What testing was considered but not performed or refused? (CT, X-rays, U/S, labs)? Why? @ -[None] What meds were considered but not given or refused? Why? @ -[None] Was smoking cessation discussed for >3mins.? @ -[No] Were there social determinants of health that impacted care today? How? (Homelessness, low income, unemployed, alcoholism, drug addiction, transportation, low edu. Level, literacy, decrease access to med. care, care home, rehab)? @ -[No] Was there de-escalation of care discussed even if they declined (Discuss DNR or withdrawal of care, Hospice)? DNR status @ -[No] What co-morbidities impacted this encounter? (DM, HTN, Smoking, COPD, CAD, Cancer, CVA, ARF, Chemo, Hep., AIDS, mental health diagnosis, sleep apnea, morbid obesity)? @ -History of CVA Was patient admitted / discharged? Hospital course, mention meds given and route, prescriptions, significant lab abnormalities, going to OR and other pertinent info. @ -64-year-old male presents emergency department with 7 days of neurologic symptoms. Is described as lipsmacking and difficulty with mouth control. Patient has NIH of 0. His speech is clear. He is not aphasic. Moving all his extremities at baseline. Labs and imaging unremarkable. Patient will be discharged advised follow-up with primary care doctor. Patient has headache which is mild. Given 1 dose of Tylenol. Did you discuss the management of the patient with other professionals (professionals i.e. , PA, HYDROPULPER, lab, RT, psych nurse, clinical social work aide, vending machine repairer, teacher, sales officer, pillowcase turner)? Give summary @ -[No] Was critical care preformed (if so, how long)? @ -[No] Undiagnosed new problem with uncertain prognosis? @ -[No] Drug Therapy requiring intensive monitoring for toxicity (Heparin, Nitro, Insulin, Cardizem)? @ -[No] Were any procedures done? @ -[No] Diagnosis/symptom? Acute, or Chronic, or Acute on Chronic? Uncomplicated (without systemic symptoms) or Complicated (systemic symptoms)? @ -Neurologic issue Side effects of treatment? @ -[No] Exacerbation, Progression, or Severe Exacerbation? @ -[No] Poses a threat to life or bodily function? How? (Chest pain, [place], [place], pneumonia, PE, COPD, DKA, ARF, appy, cholecystitis, CVA, Diverticulitis, Homicidal, Suicidal, threat to staff... and all critical care pts) @ -[No] - Lab Data Result diagrams: 11/20/24 19:46 11/20/24 19:46 Lab Results 11/20/24 11/20/24 Range/Units 19:46 19:46 WBC 6.97 (4.50-10.00) 10*3/uL RBC 4.36 L (4.40-5.60) 10*6/uL Hgb 14.2 (13.0-17.0) g/dL Hct 40.0 (39.6-50.0) % MCV 91.7 (80.0-97.0) fL MCH 32.6 H (27.0-32.0) pg MCHC 35.5 (32.0-37.0) g/dL Plt Count 210 (140-440) 10*3/uL MPV 9.8 (9.5-12.2) fL Immature Gran % (Auto) 0.1 % Neutrophils % 61.6 % Lymphocytes % 24.4 % Monocytes % 11.9 % Eosinophils % 1.7 % Basophils % 0.3 % Immature Gran # 0.01 (0.00-0.04) 10*3/uL Neutrophils # 4.29 (1.80-7.70) 10*3/uL Lymphocytes # 1.70 (0.90-5.00) 10*3/uL Monocytes # 0.83 (0.20-1.00) 10*3/uL Eosinophils # 0.12 (0.04-0.35) 10*3/uL Basophils # 0.02 (0.00-0.10) 10*3/uL Sodium 140 (137-145) mmol/L Potassium 3.9 (3.5-5.1) mmol/L Chloride 108 H (98-107) mmol/L Carbon Dioxide 22 (22-30) mmol/L Anion Gap 10 mmol/L BUN 27 H (9-20) mg/dL Creatinine 0.95 (0.66-1.25) mg/dL Est GFR (CKD-EPI)AfAm >90 (>60 ml/min/1.73 sqM) Est GFR (CKD-EPI)NonAf 86 (>60 ml/min/1.73 sqM) Glucose 141 H (74-99) mg/dL Calcium 9.1 (8.4-10.2) mg/dL Total Bilirubin 0.7 (0.2-1.3) mg/dL AST 41 (17-59) U/L ALT 96 H (4-49) U/L Alkaline Phosphatase 87 (38-126) U/L Total Protein 7.3 (6.3-8.2) g/dL Albumin 4.7 (3.5-5.0) g/dL Disposition Clinical Impression: Headache Disposition: HOME SELF-CARE Condition: Fair Instructions (If sedation given, give patient instructions): Extrapyramidal Symptoms (ED) Is patient prescribed a controlled substance at d/c from ED?: No Referrals: Deny Barrera MD [Primary Care Provider] - 1-2 days Time of Disposition: 20:34
[2024-11-20 19:56] LABS: Basophils # (A) 0.02 10*3/uL (0.00-0.10); Basophils % (A) 0.3 %; Eosinophils # (A) 0.12 10*3/uL (0.04-0.35); Eosinophils % (A) 1.7 %; HCT 40.0 % (39.6-50.0); HGB 14.2 g/dL (13.0-17.0); Lymphocytes # (A) 1.70 10*3/uL (0.90-5.00); Lymphocytes % (A) 24.4 %; MCH 32.6 pg (27.0-32.0); MCHC 35.5 g/dL (32.0-37.0); MCV 91.7 fL (80.0-97.0); Monocytes # (A) 0.83 10*3/uL (0.20-1.00); Monocytes % (A) 11.9 %; Neutrophils # (A) 4.29 10*3/uL (1.80-7.70); Neutrophils % (A) 61.6 %; Platelet Count 210 10*3/uL (140-440); RBC 4.36 10*6/uL (4.40-5.60); RDW 11.9 % (11.5-14.5); WBC 6.97 10*3/uL (4.50-10.00)
[2024-11-20 20:08] LABS: Potassium 3.9 mmol/L (3.5-5.1)
[2024-11-20 20:09] LABS: ALT 96 U/L (4-49); AST 41 U/L (17-59); African American GFR (CKD) >90 (>60 ml/min/1.73 sqM); Albumin 4.7 g/dL (3.5-5.0); Alkaline Phosphatase 87 U/L (38-126); Anion Gap 10 mmol/L; Blood Urea Nitrogen 27 mg/dL (9-20); Calcium 9.1 mg/dL (8.4-10.2); Carbon Dioxide 22 mmol/L (22-30); Chloride 108 mmol/L (98-107); Glucose 141 mg/dL (74-99); Non-African American GFR(CKD) 86 (>60 ml/min/1.73 sqM); Sodium 140 mmol/L (137-145); Total Protein 7.3 g/dL (6.3-8.2)
--- NOTE | 2024-11-20 20:19 | CT ---
EXAMINATION TYPE: CT brain wo con DATE OF EXAM: 11/20/2024 8:09 PM COMPARISON: Previous CT study dated 10/19/2024. CLINICAL INDICATION: Male, 64 years old with history of neuro issues, headache, hx of cva TECHNIQUE: Brain: Axial CT images of the brain were obtained with coronal and sagittal reformats created and rev iewed. Contrast used: None. Oral contrast used: None. CT DLP: 1131.5 mGycm, Automated exposure control for dose reduction was used. FINDINGS: Brain: Extra-axial spaces: No abnormal extra-axial fluid collections. Ventricular system: Dilatation in proportion to cerebral atrophy. Cerebral parenchyma: No acute intraparenchymal hemorrhage or mass effect. Scattered hypoattenuating areas are seen within the white matter. Stable encephalomalacia changes in the right temporoparietal region related to remote infarct. Cerebellum: Unremarkable. Mass effect: No evidence of midline shift. Intracranial vasculature: unremarkable Soft tissues: Normal. Calvarium/osseous structures: No depressed skull fracture. Paranasal sinuses and mastoid air cells: Mild scattered paranasal sinus disease. Visualized orbits: Orbital contents are intact. IMPRESSION: No acute intracranial process. [facility], , 11/20/2024 8:17 PM
[2024-11-20] MEDS: ACETAMINOPHEN TAB 500 MG TAB PO STA (20:44)
[2024-11-20 20:53] VITALS: BP 128/79; PULSE 83; RESP 18; TEMP 98.2
== END 2024-11-20 20:53 | disposition home or self-care (01) ==
LOC: EC 19:25
DX: R51.9 Headache, unspecified (principal); Z86.73 Personal history of transient ischemic attack (TIA), and cerebral infarction without residual deficits; Z87.891 Personal history of nicotine dependence; Z88.0 Allergy status to penicillin; Z88.1 Allergy status to other antibiotic agents; Z88.5 Allergy status to narcotic agent; Z88.8 Allergy status to other drugs, medicaments and biological substances
CPT/HCPCS: 36415; 70450; 80053; 85025; 93005; 99285